=== PATIENT | male | born 1955 | race Caucasian/White ===

== ENCOUNTER 2023-10-24 09:04 | Outpatient (OUT) | payer OTHER, SELFPAY ==
[2023-10-24 09:32] LABS: Basophils Percent Auto 0.6 % (0.2-2.0); Eosinophils Absolute Auto 0.3 10^3/uL (0.0-0.7); Eosinophils Percent Auto 3.9 % (0.9-7.0); Hematocrit 42.7 % (42.0-54.0); Hemoglobin 13.7 g/dL (14.0-18.0); Immature Granulocytes Abs Auto 0.01 10^3/uL (0.00-0.03); Immature Granulocytes Pct Auto 0.2 % (0.0-0.5); Lymphocytes Absolute Auto 1.9 10^3/uL (1.2-3.8); Lymphocytes Percent Auto 29.8 % (20.5-60.0); Mean Corpuscular HGB Conc 32.1 g/dL (29.9-35.2); Mean Corpuscular Hemoglobin 27.8 pg (25.9-34.0); Mean Corpuscular Volume 86.8 fL (80.0-94.0); Mean Platelet Volume 9.9 fL (9.5-13.5); Monocytes Absolute Auto 0.6 10^3/uL (0.3-0.8); Monocytes Percent Auto 9.1 % (1.7-12.0); Neutrophils Absolute Auto 3.6 10^3/uL (1.4-6.5); Neutrophils Percent Auto 56.4 % (43.0-75.0); Platelet Count 321 10^3/uL (150-450); Red Blood Count 4.92 10^6/uL (4.70-6.10); Red Cell Distribution Width 14.5 % (11.0-15.0); White Blood Count 6.4 10^3/uL (4.0-11.0)
[2023-10-24 10:09] LABS: Alanine Aminotransferase 32 U/L (16-63); Albumin Globulin Ratio 1.1; Albumin Level 3.8 g/dL (3.4-5.0); Alkaline Phosphatase 57 U/L (46-116); Anion Gap 10.9; Aspartate Amino Transferase 13 U/L (15-37); BUN Creatinine Ratio 23.3; Bilirubin Total 0.3 mg/dL (0.2-1.0); Calcium 9.3 mg/dL (8.5-10.1); Carbon Dioxide 28.4 mmol/L (21.0-32.0); Chloride 105 mmol/L (98-107); Cholesterol 160 mg/dL (<=200); Estimated GFR (African America >60 (>=60); Estimated GFR (Non-African Ame >60 (>=60); Free T3 2.69 pg/mL (2.18-3.98); Globulin 3.5 g/dL; Glucose 115 mg/dL (74-106); HDL Cholesterol 54 mg/dL (40-60); LDL Cholesterol Calculated 90.8 mg/dL; Potassium 4.3 mmol/L (3.5-5.1); Sodium 140 mmol/L (136-145); Thyroid Stimulating Hormone 2.915 uIU/mL (0.358-3.740); Total Protein 7.3 g/dL (6.4-8.2); Triglycerides 76 mg/dL (<=150); VLDL CHOLESTEROL 15.2 mg/dL
[2023-10-24 10:13] LABS: Estimated Average Glucose 126 mg/dL
[2023-10-24 10:59] LABS: Prostate Specific Antigen Scrn 3.62 ng/mL (<=4.00)
== END 2023-10-24 09:05 | disposition home or self-care (01) ==
LOC: LAB 09:07
PROVIDERS: PCP Family Medicine; Visit Provider Family Medicine
DX: K21.9 Gastro-esophageal reflux disease without esophagitis (principal); I10 Essential (primary) hypertension; N40.0 Benign prostatic hyperplasia without lower urinary tract symptoms; E11.9 Type 2 diabetes mellitus without complications; E78.5 Hyperlipidemia, unspecified; Z12.5 Encounter for screening for malignant neoplasm of prostate
CPT/HCPCS: 36415; 80053; 80061; 83036; 84436; 84443; 84481; 85025; G0103

== ENCOUNTER 2024-08-17 08:13 | Emergency (ER) | payer OTHER, SELFPAY ==
[2024-08-17 08:21] VITALS: BP 182/90; PULSE 56; TEMP 36.7; O2SAT 100; BMI 28.1
--- NOTE | 2024-08-17 08:51 | CT_ITS ---
[address] [address] Patient Name: MONIQUE FENG MRN: [id number] date: 1955 Sex: M Assigned Patient Location: ER Current Patient Location: Accession/Order Number: [id number] Exam Date: 08/17/2024 09:04 Report Date: 08/17/2024 09:39 At the request of: EBONY SHELTON Procedure: CT abdomen pelvis wo con EXAMINATION: CT abdomen pelvis wo con HISTORY: left flank pain COMPARISON: 11/30/[address] TECHNIQUE: Axial, Coronal, and Sagittal images were created without IV contrast. Dose reduction techniques were achieved by using automated exposure control and/or adjustment of mA and/or kV according to patient size and/or use of iterative reconstruction technique. FINDINGS: LUNG BASES: No visible pulmonary or pleural disease. LIVER: No enlargement, atrophy, abnormal density, or significant focal lesion. BILIARY: 4.[address] evidence of acute cholecystitis PANCREAS: No lesion, fluid collection, ductal dilatation, or atrophy. SPLEEN: No enlargement or focal lesion. ADRENALS: No mass or enlargement. KIDNEYS: 4 mm nonobstructing right nephrolith. Asymmetric enlargement of the left kidney with minimal perinephric stranding. Mild left hydroureteronephrosis extending to a 5.4 mm proximal ureterolith axial image #72. Additional punctate left nephrolith BOWEL/MESENTERY: Moderate colonic diverticulosis without evidence of acute diverticulitis. Nonobstructive bowel gas pattern. Normal appendix. AORTA/VASCULAR: No aortic aneurysm. Moderate calcific atherosclerosis RETROPERITONEUM: No mass or adenopathy. LYMPH NODES: No adenopathy. URINARY BLADDER: No visible focal wall thickening, lesion, or calculus. PELVIC ORGANS: No visible mass. Pelvic organs appropriate for patient age. ABDOMINAL WALL: No mass or hernia. BONES: Moderate degenerative changes of the spine OTHER: Large bilateral hydroceles, right greater than left CT/CT abdomen pelvis wo con IMPRESSION: 5.4 mm proximal left ureterolith with mild associated left obstructive uropathy Cholelithiasis Bilateral scrotal hydroceles Electronically authenticated by: NICO GRESHAM Date: 08/17/2024 09:39
--- NOTE | 2024-08-17 08:52 | ED_ITS ---
HPI HPI - General Adult General Chief complaint: Back Pain/Injury Stated complaint: LEFT FLANK PAIN Time Seen by Provider: 08/17/24 08:22 Source: patient Mode of arrival: walk-in History of Present Illness HPI narrative: 69-year-old male to the emergency department chief complaint of left-sided flank pain. Patient reports 2 days ago he had some hematuria and some left-sided flank pain. He drank a lot of water and it went away. He reports that today he again had recurrence of left-sided flank pain as well as some pain to the left lower quadrant. No history of kidney stones however there is a significant f amily history. He denies any fever, sweats, chills. He reports nausea without vomiting. He is otherwise at his baseline health. Past medical history: Hypertension, diabetes mellitus type 2 Related Data Home Medications ?Medication ?Instructions ?Recorded ?Confirmed atenolol 25 mg tablet mg 08/17/24 metformin 500 mg tablet mg 08/17/24 omeprazole 20 mg capsule,delayed mg 08/17/24 release Previous Rx's ?Medication ?Instructions ?Recorded ondansetron 4 mg disintegrating 4 mg PO Q8H PRN nausea and 08/17/24 tablet vomiting 4 days #16 tabs oxycodone 5 mg tablet 5 mg PO Q6H PRN pain 3 days #12 08/17/24 tabs tamsulosin 0.4 mg capsule (Flomax) 0.4 mg PO DAILY #14 caps 08/17/24 Allergies Allergy/AdvReac Type Severity Reaction Status Date / Time No Known Drug Allergies Allergy Verified 08/17/24 08:27 Opioid HPI Opioid Management Most Recent Opioid Data: Last JAN Pain Assessment 08/17/24 08:57 Review of Systems ROS Status of ROS 10 or more systems reviewed and unremark able except as noted in history and below PFSH PFSH Social History Little interest or pleasure in doing things: not at all Feeling down, depressed, or hopeless: not at all Exam Narrative Exam Narrative: VITALS: I have reviewed the triage vital signs. GENERAL: Uncomfortable appearing adult male holding his left flank. NEURO: Alert and oriented. Moves all extremities. Face is symmetric and expressive. EYES: PERRL. No scleral icterus or conjunctival injection. No discharge. HENT: Normocephalic, atraumatic. Hearing is grossly intact. Nares grossly patent and without discharge. Mucous membranes moist. NECK: No JVD. Patient moves neck without restriction. CARDIO: Rhythm regular. Normal rate. No murmur, rub, or gallop. Pulses equal bilaterally in the upper and lower extremity. No lower extremity edema. PULM: Lungs clear to auscultation in all hernandes. No wheezes, rales, or rhonchi. No conversational dyspnea. No splinting, stridor, or accessory muscle use. GI/: Abdomen is soft. Mild left lower quadrant and left flank tenderness. EXTREMITIES: Symmetric muscle bulk. No joint swelling. No clubbing, cyanosis, or deformity. SKIN: Warm and dry. Normal turgor. No rash or lesions appreciated. PSYCH: Mood, affect, and interaction is appropriate to the setting. Constitutional Vital Signs, click to edit/add: Last Vital Signs Temp 98.0 F 08/17/24 08:21 Pulse 56 L 08/17/24 08:21 Resp 20 08/17/24 08:21 BP 182/90 H 08/17/24 08:21 Pulse Ox 100 08/17/24 08:21 O2 Del Method Room Air 08/17/24 08:21 Course Vital Signs Vital signs: Vital Signs Temperature 98.0 F 08/17/24 08:21 Pulse Rate 56 L 08/17/24 08:21 Respiratory Rate 20 08/17/24 08:21 Blood Pressure 182/90 H 08/17/24 08:21 Pulse Oximetry 100 08/17/24 08:21 Oxygen Delivery Method Room Air 08/17/24 08:21 Temperature 98.0 F 08/17/24 08:21 Pulse Rate 56 L 08/17/24 08:21 Respiratory Rate 20 08/17/24 08:21 Blood Pressure 182/90 H 08/17/24 08:21 Pulse Oximetry 100 08/17/24 08:21 Oxygen Delivery Method Room Air 08/17/24 08:21 Medical Decision Making MDM Narrative Medical decision making narrative: 69-year-old male to the emergency department chief complaint of left lower quadrant/left flank pain. Vital stable, the patient is afebrile. Clinical picture is that of kidney stone. Morphine, Toradol, Zofran ordered for symptom control. Will obtain a CT scan. Patient agrees with this plan. Pain was well-controlled with medications. He does have a 5.4 mm stone proximal left ureter. Mild MICHELLE. No evidence of infection in the urine. Case was discussed via telephone with Dr. Paez due to the patient's MICHELLE. He recommended outpatient management at this point, repeat renal function on Friday. Urine strainer and Flomax. I discussed with Dr. Bradford via telephone. I provided a prescription for repeat BMP on Friday. Dr. Bradford will follow-up with the patient to ensure he is doing well and follow-up on the renal function. Patient is instructed increase fluids at home. Plan was discussed with the patient and he agrees. Oxycodone for breakthrough pain. Zofran. Tylenol. He is given a prescription for Flomax. Urine strainer provided. Return precautions were discussed. All questions were answered. The patient was d ischarged home. Medical Records Medical records reviewed: Yes I reviewed the patient's medical records Lab Data Lab results reviewed: Yes I reviewed the patient's lab results Labs: Lab Results 08/17/24 08/17/24 Range/Units 08:29 08:38 WBC 8.3 (4.0-11.0) 10^3/uL RBC 5.04 (4.70-6.10) 10^6/uL Hgb 14.2 (14.0-18.0) g/dL Hct 43.8 (42.0-54.0) % MCV 86.9 (80.0-94.0) fL MCH 28.2 (25.9-34.0) pg MCHC 32.4 (29.9-35.2) g/dL RDW 14.4 (11.0-15.0) % Plt Count 324 (150-450) 10^3/uL MPV 10.0 (9.5-13.5) fL Neut % (Auto) 64.5 (43.0-75.0) % Lymph % (Auto) 23.8 (20.5-60.0) % [place] % (Auto) 7.9 (1.7-12.0) % Eos % (Auto) 2.9 (0.9-7.0) % Baso % (Auto) 0.5 (0.2-2.0) % Neut # (Auto) 5.3 (1.4-6.5) 10^3/uL Lymph # (Auto) 2.0 (1.2-3.8) 10^3/uL [place] # (Auto) 0.7 (0.3-0.8) 10^3/uL Eos # (Auto) 0.2 (0.0-0.7) 10^3/uL Baso # (Auto) 0.0 (0.0-0.1) 10^3/uL Abs Immat Gran (auto) 0.03 (0.00-0.03) 10^3/uL Imm/Tot Granulo (auto) 0.4 (0.0-0.5) % Sodium 141 (136-145) mmol/L Potassium 3.8 (3.5-5.1) mmol/L Chloride 106 (98-107) mmol/L Carbon Dioxide 27.3 (21.0-32.0) mmol/L Anion Gap 11.5 BUN 18.0 (7.0-18.0) mg/dL Creatinine 1.31 H (0.70-1.30) mg/dL Est GFR ( Amer) >60 (>=60 mL/min/1.73m^2) Est GFR (Non-Af Amer) 54 L (>=60 mL/min/1.73m^2) BUN/Creatinine Ratio 13.7 Glucose 164 H (74-106) mg/dL Calcium 8.9 (8.5-10.1) mg/dL Urine Color Dk yellow (YELLOW) Urine Clarity Clear (CLEAR) Urine pH 6.0 (5.0-9.0) Ur Specific [place] >=1.030 A (1.005-1.025) Urine Protein 30 A (NEG/TRACE) mg/dL Urine Glucose (UA) Negative (NEGATIVE) mg/dL Urine Ketones Trace A (NEGATIVE) mg/dL Urine Occult Blood Large A (NEGATIVE) Urine Nitrite Negative (NEGATIVE) Urine Bilirubin Negative (NEGATIVE) Urine Urobilinogen 0.2 (0.2-1.0) EU/dL Ur Leukocyte Esterase Trace A (NEGATIVE) Urine RBC 75-100 A (0-2) #/HPF Urine WBC 2-5 A (NONE SEEN) #/HPF Ur Squamous Epith Cells Rare (NONE/RARE) #/LPF Urine Crystals Seen A (None Seen) #/HPF Calcium Oxalate Crystal Rare Urine Bacteria Trace A (NONE SEEN) #/HPF Urine Casts Seen A (NONE SEEN) #/LPF Hyaline Casts Rare Urine Mucus Trace A (NONE SEEN) Imaging Data CT scan - abdomen: Attestation: I have reviewed the pertinent imaging results. Radiologist's impression: ITS Impressions Abdomen/Pelvis CT 08/17/24 08:51 IMPRESSION: 5.4 mm proximal left ureterolith with mild associated left obstructive uropathy Cholelithiasis Bilateral scrotal hydroceles Electronically authenticated by: NICO GRESHAM Date: 08/17/2024 09:39 Discharge Plan Discharge Chief Complaint: Back Pain/Injury Clinical Impression: Acute left flank pain, Kidney stone on left side Patient Disposition: Home, Self-Care Time of Disposition Decision: 10:31 Condition: Good Mode of Transportation: Private Vehicle Prescriptions / Home Meds: New tamsulosin [Flomax] 0.4 mg capsule 0.4 mg PO DAILY Qty: 14 0RF ondansetron 4 mg tablet,disintegrating 4 mg PO Q8H PRN (Reason: nausea and vomiting) 4 Days Qty: 16 0RF oxycodone 5 mg tablet 5 mg PO Q6H PRN (Reason: pain) 3 Days Qty: 12 0RF No Action metformin 500 mg tablet atenolol 25 mg tablet omeprazole 20 mg capsule,delayed release(/EC) Print Language: Albanian Instructions: Acute Kidney Injury (DC), Kidney Stones (ED), How to Strain Your Urine (ED) Additional Instructions: Call the office of your primary care doctor to arrange for follow-up within the above-stated timeframe. Your ED visit was focused on your acute issue and does not replace primary care. You should review your labs, imaging, and diagnoses from this ED visit with your primary care physician. There may be non-emergent/ incidental findings that need further evaluation. You should review your vital signs including blood pressure with your PCP. If you were prescribed medications you should discuss possible side-effects and drug interactions with your pharmacist. Call 911 or go to the nearest Emergency Department if you develop any new or worsening symptoms. Seek immediate medical attention if you develop: worsening abdominal pain, new or worsening nausea, new or worsening vomiting, new or worsening diarrhea, chest pain, shortness of breath, pain with urination, problems urinating, fever, chills, weakness, or any new or worsening symptoms. Strain your urine so that we know if you passed the stone. Call Dr. Paez's office for appointment. Take pain medications as prescribed. Repeat kidney function test on Friday. Return to the ED if your pain is uncontrolled or you are having new or worsening symptoms. Referrals: Forest Bradford MD [Primary Care Provider] - 1 week Miky Paez MD [Physician] - 1 week
--- OUTSIDE RECORDS SUMMARY | 2024-08-17 08:54 | XMS_ITS | CCD ---
Author Organization [facility] Care Team Providers Care Livestock Speculator Name Role Phone Jazmine Bradford Primary Care Physician [phone] MD Jazmine Bradford Primary Care Provider [phone] MD Christiano Mccain Attending Provider [phone] Jazmine Bradford Primary Care Unavailable Christiano Mccain Attending Unavailable Kalyn, Christiano Admitting Unavailable HOY, DR LUCERO Consulting Unavailable HOY, DR LUCERO Primary Care Unavailable HOY, DR LUCERO Admitting Unavailable HOY, DR LUCERO Attending Unavailable NADERER, DR SREEKANTH Patel Consulting Unavailable MARKER, DR GARSIA Consulting Unavailable SAMANTHA, KRISTIN Consulting Unavailable MARIKA, JESUS Consulting Unavailable MORENO, CELE Consulting Unavailable HOY, DR LUCERO Consulting Unavailable HOY, DR LUCERO Primary Care Unavailable HOY, DR LUCERO Admitting Unavailable HOY, DR LUCERO Attending Unavailable MCCAIN, DR MEDELLIN Admitting Unavailable MCCAIN, DR MEDELLIN Attending Unavailable MCCAIN, DR MEDELLIN Consulting Unavailable HOY, DR LUCERO Primary Care Unavailable WEST, DR NICO Felipe Consulting Unavailable MD Christiano MCCAIN Attending Unavailable MD Christiano MCCAIN Attending Unavailable MD Christiano MCCAIN Attending Unavailable MD Christiano MCCAIN Referring Unavailable MD Christiano MCCAIN Admitting Unavailable MD Christiano MCCAIN Attending Unavailable Medications Current Medications Medication Drug Class(es) Dates Sig (Normalized) Sig (Original) ascorbic acid 1000 mg oral tablet (3 sources) Vitamin C Start: 08-16-2020 take 1 g by mouth once daily Ascorbic Acid (Vitamin C) (Vitamin C) 1,000 mg Tablet Active 1 GM PO Daily August 15, 2020 11:00pm Start: 06-17-2019 take 500 mg by mouth once cathi y Vitamin C 500 mg, Oral, Daily, Refills(s) 0, Prophylaxis Start Date: 06/17/19 Status: Ordered aspirin 81 mg delayed release oral tablet (3 sources) Platelet Aggregation Inhibitor, Nonsteroidal Anti-inflammatory Drug Start: 08-16-2020 Aspirin (Mik Lo w Dose Aspirin) 81 mg Tablet,Delayed Release (Dr/Ec) Active 81 MG PO Daily August 15, 2020 11:00pm Start: 06-17-2019 take 1 tablet by harry th once daily aspirin 81 mg oral tablet 81 mg = 1 tab(s), Oral, Daily, Refills(s) 0, Prophylaxis Start Date: 06/17/19 Status: Ordered atenolol 25 mg oral tablet (3 sources) beta-Adrenergic Brandt Start: 06-17-2019 take 1 tablet by mouth once daily atenolol 25 mg Tab 25 mg = 1 tab(s), Oral, Daily, Refills(s) 0, High blood pressure Start Date: 06/17/19 Status: Ordered cefdinir 300 mg oral capsule (1 source) Cephalosporin Antibacterial Start: 12-13-2022 cefdinir 300 mg Cap Refills(s) 0 Start Date: 12/13/22 Status: Ordered metFORMIN hydrochloride 500 mg oral tablet (3 sources) Biguanide Start: 06-17-2019 take 1 tablet by mouth twice daily metformin 500 mg Tab 500 mg = 1 tab(s), Oral, BID, Refills(s) 0, High blood sugar Start Date: 06/17/19 Status: Ordered Multi Vitamins oral tablet (2 sources) Start: 06-17-2019 take 1 tablet by mouth once daily Multi Vitamins oral tablet 1 tab(s), Oral, Daily, Refill(s) 0, Prophylaxis Start Date: 06/17/19 Status: Ordered omeprazole 20 mg delayed release oral capsule (3 sources) Proton Pump Inhibitor Start: 08-16-2020 take 20 mg by mouth once daily at bedtime Omeprazole Active 20 MG PO Daily at bedtime August 15, 2020 11:00pm Start: 06-17-2019 take 20 mg by mouth once daily omeprazole 20 mg, Oral, Daily, Refills(s) 0, Control of stomach acid Start Date: 06/17/19 Status: Ordered Problems Active Problems Problem Classification Problem Date Documented Da te Episodic/Chronic Abdominal hernia (4 sources) Incisional hernia; Translations: [Umbilical hernia] 06-17-2019 Episodic Complications of surgical procedures or medical care (2 sources) Infection following a procedure, unspecified, initial encounter; Translations: [Sepsis following a procedure, initial encounter] Onset: 12-05-2022 Episodic Diabetes mellitus without complication (3 sources) Type 2 diabetes mellitus; Translations: [Type 2 diabetes mellitus without complications] Onset: 12-05-2022 06-17-2019 Chronic Disorders of lipid metabolism (4 sources) Hyperlipidemia, unspecified; Translations: [HYPERLIPIDEMIA UNSPECIFIED] Onset: 07-30-2022 Chronic Essential hypertension (3 sources) Hypertensive disorder; Translations: [Essential (primary) hypertension] Onset: 07-31-2022 06-17-2019 Chronic Hyperplasia of prostate (4 sources) Benign prostatic hypertrophy without outflow obstruction; Translations: [Benign prostatic hyperplasia without lower urinary tract symptoms] Onset: 12-13-2022 Chronic Inflammatory conditions of male genital organs (1 source) Acute prostatitis; Translations: [ACUTE PROSTATITIS] Onset: 12-05-2022 Episodic Other aftercare (1 source) watermelon inspector (current) use of aspirin; Translations: [LIBRARY MONITOR CURRENT USE OF ASPIRIN] Onset: 12-05-2022 Episodic Other aftercare (1 source) watermelon inspector (current) use of oral hypoglycemic drugs; Translations: [LIBRARY MONITOR USE ORAL HYPOGLYCEMIC DX] Onset: 12-05-2022 Episodic Other aftercare (1 source) 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 therapy; Translations: [OTH LIBRARY MONITOR CURRENT DRUG THERAPY] Onset: 12-05-2022 Episodic Other lower respiratory disease (1 source) Acute respiratory distress; Translations: [ACUTE RESPIRATORY DISTRESS] Onset: 12-05-2022 Episodic Other male genital disorders (2 sources) Hydrocele of testis; Translations: [Hydrocele, unspecified] Onset: 09-06-2022 Episodic Other male genital disorders (2 sources) Disorder of male genital organ 09-06-2022 Episodic Other male genital disorders (4 sources) Hydrocele, unspecified; Translations: [HYDROCELE UNSPECIFIED] Onset: 09-09-2022 Episodic Other screening for suspected conditions (not mental disorders or infectious disease) (6 sources) Raised prostate specific antigen; Translations: [Elevated prostate specific antigen [PSA]] Onset: 07-31-2022 Episodic Residual codes; unclassified (2 sources) Increased body mass index 09-06-2019 Episodic Septicemia (except in labor) (3 sources) Sepsis, unspecified organism; Translations: [Severe sepsis without septic shock] Onset: 11-28-2022 Episodic Unclassified (2 sources) Screening status 06-17-2019 Past or Other Problems Problem Classification Problem Date Documented Da te Episodic/Chronic Diabetes mellitus without complication (1 source) Other abnormal glucose; Translations: [OTHER ABNORMAL GLUCOSE] Onset: 07-31-2022 Episodic Results Test Name Value Interpretation Reference Range Facility ED Note-Physicianon 12-16-19 ED Note-Physician [id number] .00CD:127 Normal [facility] Lab Reportson 12-16-2022 Lab Reports [id number] .00CD:127 Normal [facility] RAD - CT Reporton 12-16-2022 RAD - CT Report [id number] .00CD:127 Normal [facility] Ambulatory Visit Summaryon 0 12-13-2022 Ambulatory Visit Summary PING KENNEY MONIQUE Andrew :1955 Visit Date:12/13/2022 Ambulatory Visit Instructions Your Diagnosis Elevated PSA BPH without urinary obstruction Prostate nodule Hydrocele Your Care Team Attending Physician - Christiano MCCAIN MD Primary Care Physician - Jazmine Bradford MD This Is Your Medications List Contact prescribing physician if questions or concerns ascorbic acid (Vitamin C) aspirin (aspirin 81 mg oral tablet) atenolol (atenolol 25 mg Tab) cefdinir (cefdinir 300 mg Cap) metformin (metformin 500 mg Tab) multivitamin (Multi Vitamins oral tablet) omeprazole Procedures Performed Transrectal biopsy of prostate using ultrasound (US) guidance (11/26/2022), Hernia repair (09/28/2019), Colonoscopy (06/25/2019), Arthroscopy of knee right, Open repair of inguinal hernia, Repair of umbilical hernia. Discharge Vitals Heart Rate (Peripheral) 80 Respiratory Rate 16 Blood Pressure 128/74 Height 179 cm Height 70 in Weight 86 kg Weight 189.2 lb BMI 26.84 What to do next You Need to Schedule the Following Appointments Follow Up with KALYN CHAKRABORTY, MACEY Nash When: Where: [address] [place] [id number]- Medications What How Much When Instructions Unchanged ascorbic acid (Vitamin C) 500 Milligram By Mouth Every day Contact prescribing physician if questions or concerns Unchanged aspirin (aspirin 81 mg oral tablet) 1 Tablets By Mouth Every day Contact prescribing physician if questions or concerns Unchanged atenolol (atenolol 25 mg Tab) 1 Tablets By Mouth Every day Contact prescribing physician if questions or concerns Unchanged cefdinir (cefdinir 300 mg Cap) Contact prescribing physician if questions or concerns Unchanged metformin (metformin 500 mg Tab) 1 Tablets By Mouth 2 times a day Contact prescribing physician if questions or concerns Unchanged multivitamin (Multi Vitamins oral tablet) 1 Tablets By Mouth Every day Contact prescribing physician if questions or concerns Unchanged omeprazole 20 Milligram By Mouth Every day Contact prescribing physician if questions or concerns Allergies No Known Allergies Problems Ongoing - Any problem that you are currently receiving treatment for. BMI 29.0-29.9,adult BPH without urinary obstruction Colon cancer screening Diabetes mellitus, type 2 Elevated PSA HTN (hypertension) Hydrocele Incisional hernia Prostate nodule Umbilical hernia Education Materials Prostate Cancer Screening The prostate is a walnut-sized gland that is located below the bladder and in front of the rectum in males. The function of the prostate (prostate gland) is to add fluid to semen during ejaculation. Prostate cancer is the second most common type of cancer in men. A screening test for cancer is a test that is done before cancer symptoms start. Screening can help to identify cancer at an early stage, when the cancer can be treated more easily. The recommended prostate cancer screening test is a blood test called the prostate-specific antigen (PSA) test. PSA is a protein that is made in the prostate. As you age, your prostate naturally produces more PSA. Abnormally high PSA levels may be caused by: ? Prostate cancer. ? An enlarged prostate that is not caused by cancer (benign prostatic hyperplasia, BPH). This condition is very common in older men. ? A prostate gland infection (prostatitis). ? Medicines to assist with hair growth, such as finasteride. Depending on the PSA results, you may need more tests, such as: ? A physical exam to check the size of your prostate gland. ? Blood and imaging tests. ? A procedure to remove tissue samples from your prostate gland for testing (biopsy). Who should have screening? Screening recommendations vary based on age. ? If you are younger than age 40, screening is not recommended. ? If you are age 40?54 and you have no risk factors, screening is not recommended. ? If you are younger than age 55, ask your health care provider if you need screening if you have one of these risk factors: ? Being of -[place] descent. ? Having a family history of prostate cancer. ? If you are age 55?69, talk with your health care provider about your need for screening and how often screening should be done. ? If you are older than age 70, screening is not recommended. This is because the risks that screening can cause are greater than the benefits that it may provide (risks outweigh the benefits). If you are at high risk for prostate cancer, your health care provider may recommend that you have screenings more often or start screening at a younger age. You may be at high risk if you: ? Are older than age 55. ? Are -E[place]. ? Have a father, brother, or uncle who has been diagnosed with prostate cancer. The risk may be higher if your family member's cancer occurred at an early age. What are th (more content not included)... Normal [facility] Patient Educationon 12-13-19 Patient Education Oncology Prostate Cancer Screening The prostate is a walnut-sized gland that is located below the bladder and in front of the rectum in males. The function of the prostate (prostate gland) is to add fluid to semen during ejaculation. Prostate cancer is the second most common type of cancer in men. A screening test for cancer is a test that is done before cancer symptoms start. Screening can help to identify cancer at an early stage, when the cancer can be treated more easily. The recommended prostate cancer screening test is a blood test called the prostate-specific antigen (PSA) test. PSA is a protein that is made in the prostate. As you age, your prostate naturally produces more PSA. Abnormally high PSA levels may be caused by: ? Prostate cancer. ? An enlarged prostate that is not caused by cancer (benign prostatic hyperplasia, BPH). This condition is very common in older men. ? A prostate gland infection (prostatitis). ? Medicines to assist with hair growth, such as finasteride. Depending on the PSA results, you may need more tests, such as: ? A physical exam to check the size of your prostate gland. ? Blood and imaging tests. ? A procedure to remove tissue samples from your prostate gland for testing (biopsy). Who should have screening? Screening recommendations vary based on age. ? If you are younger than age 40, screening is not recommended. ? If you are age 40?54 and you have no risk factors, screening is not recommended. ? If you are younger than age 55, ask your health care provider if you need screening if you have one of these risk factors: ? Being of -[place] descent. ? Having a family history of prostate cancer. ? If you are age 55?69, talk with your health care provider about your need for screening and how often screening should be done. ? If you are older than age 70, screening is not recommended. This is because the risks that screening can cause are greater than the benefits that it may provide (risks outweigh the benefits). If you are at high risk for prostate cancer, your health care provider may recommend that you have screenings more often or start screening at a younger age. You may be at high risk if you: ? Are older than age 55. ? Are -[place]. ? Have a father, brother, or uncle who has been diagnosed with prostate cancer. The risk may be higher if your family member's cancer occurred at an early age. What are the benefits of screening? There is a small chance that screening may lower your risk of dying from prostate cancer. The chance is small because prostate cancer is typically a slow-growing cancer, and most men with prostate cancer from a different cause. What are the risks of screening? The main risk of prostate cancer screening is diagnosing and treating prostate cancer that would never have caused any symptoms or problems (overdiagnosis and overtreatment). PSA screening cannot tell you if your PSA is high due to cancer or a different cause. A prostate biopsy is the only procedure to diagnose prostate cancer. Even the results of a biopsy may not tell you if your cancer needs to be treated. Slow-growing prostate cancer may not need any treatment other than monitoring, so diagnosing and treating it may cause unnecessary stress or other side effects. A prostate biopsy may also cause: ? Infection or fever. ? A false negative. This is a result that shows that you do not have prostate cancer when you actually do have prostate cancer. Questions to ask your health care provider ? When should I start prostate cancer screening? ? What is my risk for prostate cancer? ? How often do I need screening? ? What type of screening tests do I need? ? How do I get my test results? ? What do my results mean? ? Do I need treatment? Contact a health care provider if: ? You have difficulty urinating. ? You have pain when you urinate or ejaculate. ? You have blood in your urine or semen. ? You have pain in your back or in the area of your prostate. ? You have trouble getting or maintaining an erection (erectile dysfunction, ED). Summary ? Prostate cancer is a common type of cancer in men. The prostate (prostate gland) is located below the bladder and in front of the rectum. This gland adds fluid to semen during ejaculation. ? Prostate cancer screening may identify cancer at an early stage, when the cancer can be treated more easily. ? The prostate-specific antigen (PSA) test is the recommended screening test for prostate cancer. ? Discuss the risks and benefits of prostate cancer screening with your health care provider. If you are age 70 or older, screening is likely to lead to more risks than benefits (risks outweigh the benefits). This information is not intended to replace advice given to you by your health care provider. Make sure you discuss any questions you have with your health care provider. Document Released: 08/07/2018 Document R (more content not included)... Normal [facility] Urology Office/Clinic Noteon 12-13-2022 Urology Office/Clinic Note Chief Complaint Review Prostate Path Report HPI Staff S/P TRUS /Bx done 11/26/22. Pathology report is available to review. MRI done 10/01/22. Scrotal US done 09/09/22 Pt states he went to [facility] the day following TRUS/Bx due to increased fever and chills. Admitted due to Sepsis. Still taking abx, has 1 wk left. Denies any complaints voiding at this time. History of Present Illness Tests reviewed: reviewed path report and CT scan ordered by primary care. I have reviewed the previous health record information and history for this patient from Dr. Mccain. I have reviewed and verified the staff HPI to be accurate for this encounter. There have been no associated fever, chills, flank pain, or blood in the urine. Denies any urinary infections since last encounter. Review of Systems PHQ Score Initial Depression Screen Score: 0 ROS - Provider Constitutional: denies weight loss, denies hot flashes. Eyes: denies eye problems. Gastrointestinal: denies nausea, denies vomiting. Cardiovascular: denies chest pain or angina. Integumentary: no dryness Musculoskeletal: denies musculoskeletal symptoms. ENMT: denies otolaryngeal symptoms. Respiratory: no shortness of breath. Heme/Lymph: denies easy bleeding tendency, denies easy bruising tendency. Psychiatric: no confusion, no anxiety. Genitourinary: denies dysuria, denies hematuria, denies discharge, denies urinary frequency, denies urinary hesitancy, denies nocturia, denies incontinence, denies genital sores, denies decreased libido, and denies erectile dysfunction. Physical Exam Vitals & Measurements HR: 80(Peripheral) RR: 16 BP: 128/74 HT: 70 in HT: 179 cm WT: 86 kg WT: 189.2 lb BMI: 26.84 General Appearance: alert, no distress, well nourished, well developed male. Genitourinary: normal scrotum, normal testes, normal urethra, normal epididymis, normal vas deferens/spermatic cord. Flank Pain: none. Bladder: nonpalpable. Assessment/Plan 1. Elevated PSA (R97.20: Elevated prostate specific antigen [PSA]) Reports he has his PSA & JULIA checked annually and levels have always been within normal limits. Denies family hx of prostate cancer. PSA 07/30/22 - 3.6 & 11.9%, simple PSA 4.76 10/08/21 - 3.61 08/03/20 - 3.15 MRI of prostate done 09/20/22 shows no evidence of lymphadenopathy. Prostate volume 31 mL. MRI was negative for malignancy, BPH changes. S/p TRUS/bx done 11/26/22. Path report negative for prostate cancer. The pathology report was reviewed with the patient in detail today. There is no evidence of malignancy and no further evaluation of the tissue removed is planned. All questions were answered and the report discussed in terms that the patient could understand. Pt presented to [facility] ER on 11/27/22 due to fever. Pt was admitted for 4 days due to sepsis. Pt shares he is almost done with abx, started on Cefdinir. Reports he is doing much better now. Pt states his product management consultant prescribed Doxycycline and he starts it once he is done with Cefdinir. Recommended pt to take it as it aides with prostate infection. Prefers to follow up PRN. Sees primary care twice a year. All questions/concerns were discussed. Pt. to call the office if heencounters any issues prior. Pt. acknowledges understanding. 2. BPH without urinary obstruction (N40.0: Benign prostatic hyperplasia without lower urinary tract symptoms) Denies any urinary complaints, feels he is emptying well. No symptoms of prostatitis. Encouraged pt to monitor urinary habits and symptoms. Pt states he is not taking any prostate or bladder medications. States he was going to discuss starting medication with primary care. Pt. states he drinks coffee and that increases his urination. Mentions that he has decreased his coffee intake. Does not wish to try a medication to shrink his prostate. 3. Prostate nodule (N40.2: Nodular prostate without lower urinary tract symptoms) Rt. sided nodularity found, base to apex on previous exam. Biopsy was neg for prostate cancer. 4. Hydrocele (N43.3: Hydrocele, unspecified) CT scan done 11/30/22 (ordered by Dr. Bradford) showed persistent moderate right sided hydrocele, partially visualized, similar to that seen on scrotal US done 09/09/22. Shares his hydrocele has been like this for years and it is not bothersome. Hasn't had pain since he initially noticed his testicle was enlarged. -No treatment indicated at this time Follow-up With When Contact Information KALYN CHAKRABORTY, Christiano Thornton, URL [address] [id number]- Additional Instructions: PRN Patient Education Prostate Cancer Screening Malika Romero, personally scribed for Dr. Mccain on 12/13/2022 11:53:39. . Documentation recorded by the scribeMalika, accurately reflects the services(s) I performed and decisions made by me. Authenticated by Dr. Mccain on 12/13/2022 11:57:12. Problem List/Past Medical History Ongo (more content not included)... Normal [facility] Comment on above: Result Comment: Elec tronically Signed By: Christiano MCCAIN MD\.br\Date and Time Signed: 12/13/22 11:57 EST\.br\Electronically Co-Signed By: Malika Laird.br\Date and Time Co-Signed: 12/13/22 11:55 EST [facility] Documentson 0 12-06-2022 [employer] Documents [id number] 1.00CD:127 [facility] Coding Summary.on 12-03-2022 Coding Summary. CD:[id number] G h0bWw+PGhlYWQ+SN5AYSD xS88nsWPgtS0AU6vOLM3Q XPDVDVWSKA7LRI2qlGY9G NjtU7EncqUm BpinzAQxGD02ATx3IFY2e MwmQHzsgD4kgOVgR8s8Uc UeOX51wA26GVftDXBzYxQ 3LjZpbjsgbWFy P2taXlMamRZhEwv+PHRhY mxlIHdpZHRoPScxMDAlJy LstBcnYB4sIx3mRNPqPDY vbGxhcHNlOiBj l1qzQIWvUKvkGY8poVnrY 1FaqZD5ANSnm0g5Bs91vO I+CCRjOGB3jGaaNKsdc97 9NoPix4ryQQB6 cDLpQPpkTIH2J14hw4B1S JKjPSLoIHU4sMW1qS6ieN stjyyeL1TxbZQwSyT0NUL 7jJXerO2oqOkv yajtgY6dNct+J64PTZ7MR OEQZR0GVfk4N5GqYfvbeJ I+YH42ZNRjWH15jGGggSI bc8jgdZm2FmBj RXPfPPH9yBqpRCwtv1XcB RQeB63gnWOsg3D6OJVwgO nehUIzPeWtcNL1dU2uALd exxake7wqdaze Lirmm8tupg03zS59W51pJ YisCNFrECE3OICgLOTuzU baoy5nnF8wYr3+ODiwn6f dy5vtbLu3MeIz LNNczvYihAmkGCY5a5GmD m20M0HtvMrrh7CsEhv3td 55tRFmu4S8xEW0WCwvAMM dnW5aNUikVvW2 RIZoLwLkzQ11yYJcGNpbC n2xhVtqaXfbOI3dJBOxxe esMRAesD7nSOEbjFXqdPz jID9hACPvrtnk u928BmEyWUS8ZULfiKDdH 6CwpN9iOlSdAAIvEWPaA8 JkaZIdPLqkA381VZroXiG 0DYDlgpFgX6Uc SZIsiFqdWmF6t1B2La5Bj 7XkzjehZGQ0VOstSIXwKy D1LeZeNsI6Z0MlKkd8NZY nnZeyBS3oG8Jp PSKtzgihgomqhIN1AHStO ILtfG24fMEjDWowJl6me1 L1y535NHYqSIRvlD29Xh7 udDogMTBwdCBU mS4ipvyak0saohscDeWdI XYaTCc9IHi0BVHoeIkwEz LgCEO8NfY9CKX1uXItlV9 rnPfjasyqfR0a Oyc+Y38scH4yINA2MKG2k yxcTUQmmjFmSU84OW51I9 RyPjwvdGFibGU+PGRpdiB shKvnQM3oQcHg h0thc3ShQDduD8OyXPXqA JotFeh8CVWmQML2cMD6iH 1qVPPdQIhae1M9cQY7X5Q xhlWmka2oi2ej BGJePNisN11iuOUdc1Z9Z VZupEX2FIBjzZsrZkCgjI 93Oyc+NWUnpDtez1CmRzv ik5ljw8zgoIp4 SnYiPGFmdrZhuXpfICD3s 9JmJr45B22oBHwwEVHzZW WgJQYcBOYdqRpsun0qgW3 wIi8+PGNvbCB3 gBQ7yZ2hVDQpGwQ8MMohD 493OzPfqULzIuand5eno3 megSw8GdHiRCOnbqPpePw nULN4u7CmYn43 V59mWDbiGIUbCMQdTWStV FTgdTztwz1gnU1vBs6+PC 6vq9hodq35nU88aZT+PHR nIOK2eIuaVRst QFSbaJ0dQUnoYfA1TEMpO xCteQ22qKLzULnpJw0hlH ilkNexMK9iZJFaeilaw54 7ToUev5cnDRVf lAXbHHxvSTN6L04mq3K7G OKjUATuBQQ3sKL2vJ9nuN lnbjogbGVmdDsgdmVydGl oMSawPLjrL385 IHRvcDsnPlBhdGllbnQgT pIuXOa7B1DkRtl1YYWqxV tdVQ2lyGMjWJiyLz9mvBw iwSriRZ5nBSVg sawvo338GpYkp0chDYTev GEkTQbeDDT1J94gm7D4ET XvEHNwBPJ8bBG1iB4bbVq nbjogbGVmdDsg fgVvaWsxPBwnNHmrG738X HRvcDsnPkJpcnRoIERhdG T5KY45EC42qMKxt5R5oAD 8P7OeXBUdeaqb nmtvnIP7VWHwHPZjiE98D l2vuVdpYp7tVZHrVIP2YP HrtBWmH0VwkM1lNmBxXMM qVAEyJ5LzbJOs CQfxD989PHtqSfJ0EYVhg vWoS0YxFSWepMlmReO4g1 C5Eg8EA8Y6IG96CH83eFS nz9D4dLH4Z9Rx RTTdfzjivoazlDD7BZDzO QBkwW29Lw2kzJpiQj4eOK GlJXU4PTAprYHbX9QtrO7 yOiAjMDAwMDAw N9OalNIrMIldB901BUnvG aU3TCXdftIvP9WhLLIxvU vfBlC2e8Y0Tn0BBHw1JD9 8LL94qYRwi6D3 xVE4R3OgDNHvhwamtptxm YT9DQBeHMVrcX21Wc5bdM xjDb8sLXTeREE1WTXfkTG bV7QuhW7qVsNn LWTcQQHiZ8DvqSYtVBtmB 891HGxsMiM0MXPpisRtZ8 ScRAWjuUrzMqD4w9T3Lx9 SSHDoSI74GGS9 pUJ9EC99PC77A1GiCtadg GFibGU+PHRhYmxlIHdpZH RoPScxMDAlJyBzdHlsZT0 hJa1cCWDwNCCu kGjogHJdVrFom9qeTEUqN TbcWL9cpRwnY8RaaKS2WV Vep2m4Pe23E32dN6MmhET +PLIjmOZ3gZQ7 hC0eLrAkFdJ4LIqhT019B aTnsHLfWhgox7ace0uthM x1ZkM2SQJhuzQduGzqXYB 6d1GwKa91H97a IHdpZHRoPSIxNSUiIHZhb Pniaf8toL3nFu0+PGNvbC M9aUF0xP9kTwOlMnL3MZh cQ319SyCgrZNa Klewz7vuj5viiTx5IsGqJ FLnmkAxhWusXUQ1t9AfUw 33V6HtrVrmf0XjJdn1pj4 7rPIjr9T0sEP0 B4KzUHIlcltbwYKedCkxR F2rBVWatmouZJKzjS5nYG CaL7m7VtKjJiZ7TMovB2N ssqG5EMUkdLMu OIoaATI4H00aw2A6JPWmN CWtBUD9lYP2cK2nqFzaxf ogbGVmdDsgdmVydGljYWw dQKbiJ631ILBq wRhxOKTvbI4eIHPkdWIek CsnHV9nZUGjudoqIe0USY IgSlIsIFBISUxMSVAgTDw vdGQ+PHRkIHN0 rJjiSLuwXUBvdX3kNTJcW 4q8WnDnWsO1PThaQ5HkCQ JrvttaGx93hQ9sMrMoLtC 7INhaA6VoluR1 DDIjmAFbWWptBHR7E38fv 1O8BNNjVBNbIGS5zXH8oP 1hbGlnbjogbGVmdDsgdmV ydGljYWwtYWxp F560BKNkcMbpUvV2EbB7P kP4UXR7K3FrSfq2NLMrzD lnQD9ioHMoIKkrOe4yoZq nmGptAC9dDQRk saodQZDjfK3cVNXnnOCyp CzoBT5nBPTcbukcj468Jz QbJYA5KWWzdSWrH4AykZ6 yOiAjMDAwMDAw A8LdlHZrMTpxG015JLqwJ eE6ISBzkaOfX3YjQJFjcG rfSlS1l8B0Vh81YdXETOG yczwvdGQ+PHRk JPO3kEmiAIfhYUZrsF5uL PHtK7j0MiDzRzU9QUaeR0 DjYLFetbefAx40sU9oWyN jVwX9VZlwF7Ln irM0OMKxaZNlYDxySPC2E 93iz0Q2YZEnUIWyVBN1nZ A2bW6tpMzqqlflmSInxHd gdmVydGljYWwt LAywY810ZBIepGryFu9rl GI5Q0LuMma3YVBkeXovZB 3gaQFgPBfeOl6grNljhRh iNH3nMFMczctp JYEowW7tJDBcjLBnlGsoZ C0jNHHqccqfn001LfPgAL K9JCTloSCkE1YaoX8hVjS iWGEqBSAfL7Dt nTVuNSgvJ008OOcoKoG6W LBfioYcJ2YtGUSypYrhIt J0d9B2Dx6AnOSxUCSyOC7 3OU13KO02X0El PjwvdGFibGU+PHRhYmxlI HdpZHRoPScxMDAlJyBzdH itEW6rMi5xRSQrODTzyTi neOCtTaWtb3up PLZkZFrtRU1ykPlfC6Fgl LT9ULDbc7w8Oy15Z07yJ9 JvdXA+VWAhtAC5yUS4gD0 cOvPlLjM9VUjb K312ExTyvCUnElgyj3tji 5sawUv5EkLfTMKoduIasG yjTKE0b9UqVh06S82eNOw pZHRoPSIyMCUi DWHwuUijqt6ltI8qAw7+P MLugXF4bIA4hB4hEeRoTn Y3CTrwW488IkYosZYtKyo yL20jC6AqfHY+ SOPvTqw6UDYoeAdnQF8gd MKcLHneHu0yEEM5RfTrIm HpRZsmH7GzFEMktjwkzcl ojLO9SPPkMNIp zQ56Bx8kxUeiVy7nEPAbR MH5IANnbYYqU8UowM1uWf VxTMJsAXQgC1GjwZRlMBz oA919SWpsVnQ1 REBwlfUoB0FcZQThwYanN uE1b5P0Bv9IeHtzdGHwOU 1aFaBeQPw2H1GvZon3PCX xoRlyXT3xtPJg TNnmCs4izRyxgVyxCE4xP ITqzqmtc695JzJtw7rxYK JzlJDiDSskJHB8C55pb0S 9UNNlIWJpPOO3 gAX1oD5iqPpshkyumZDbp DsgdmVydGljYWwtYWxpZ2 35VNCqaEyfLyENWdx7R6J sQud4FSQulBef NX3rrIPfXBjuWi2szUjig FyzEP9vJHTfcpetr557Iy Rbz9xfHQWouCQiXIkhBCA 2Q02sy2V9SKHs VFYdSZI3eRM0eT0ucNhad jogbGVmdDsgdmVydGljYW rcTSwkQ065NVAzgGfaFx5 NZho5N7HyLin2 FXNuxXwwHM4lbABwQVfeC d6aeYrnbSevGC5oJYGlnp mfn285NtPkv3uhBWCdbZO tDDnuWTI8D32k q0O2QBJrPDTdCGG4pFB6c J6kaVyqfkugcURfgLwjoi GumCtcEDvsNMneK666COS vcDsnPlBheWVy OjwvdGQ+VK69td00Q0WdR pjzVus3LCXwRFI6tBA3oI 9zRPTgKDwvk8B3uHI7C8D oxeMvdl8qc7de YXBz (more content not included)... Normal [facility] Prostate Histology ([facility]) on 12-02-2022 Prostate Histology Diagnosis Info Invalid Interpretation Code [facility] Comment on above: Result Comment: A:Pr ostate,Left Lateral Base:Needle Biopsy Interpretation - - Benign prostatic tissue. MicroScopic Description - B:Prostate,Left Lateral Mid:Needle Biopsy Interpretation - - Benign prostatic tissue. MicroScopic Description - C:Prostate,Left Lateral [place]:Needle Biopsy Interpretation - - Benign prostatic tissue. MicroScopic Description - D:Prostate,Left Base:Needle Biopsy Interpretation - - Benign prostatic tissue. MicroScopic Description - E:Prostate,Left Mid:Needle Biopsy Interpretation - - Benign prostatic tissue. MicroScopic Description - F:Prostate,Left [place]:Needle Biopsy Interpretation - - Benign prostatic tissue. MicroScopic Description - G:Prostate,Right Base:Needle Biopsy Interpretation - - Benign prostatic tissue. MicroScopic Description - H:Prostate,Right Mid:Needle Biopsy Interpretation - - Benign prostatic tissue. MicroScopic Description - I:Prostate,Right [place]:Needle Biopsy Interpretation - - Benign prostatic tissue. MicroScopic Description - J:Prostate,Right Lateral Base:Needle Biopsy Interpretation - - Benign prostatic tissue. MicroScopic Description - K:Prostate,Right Lateral Mid:Needle Biopsy Interpretation - - Benign prostatic tissue. MicroScopic Description - L:Prostate,Right Lateral [place]:Needle Biopsy Interpretation - - Benign prostatic tissue. MicroScopic Description - Gross Description Site ID:A color og-white fixative Formalin cores 1 units cm Site ID:B color og-white fixative Formalin cores 2 units cm Site ID:C color og-white fixative Formalin cores 3 units cm Site ID:D color og-white fixative Formalin cores 3 units cm Site ID:E color og-white fixative Formalin cores 1 units cm Site ID:F color og-white fixative Formalin cores 1 units cm Site ID:G color og-white fixative Formalin cores 1 units cm Site ID:H color og-white fixative Formalin cores 1 units cm Site ID:I color og-white fixative Formalin cores 2 units cm Site ID:J color og-white fixative Formalin cores 1 units cm Site ID:K color og-white fixative Formalin cores 1 units cm Site ID:L color og-white fixative Formalin cores 2 units cm 0.7 ---> stringy Electronically signed by : on: 12/02/2022 13:28:16 Performed By: #### 1 [id number] ####[facility] [email or web address] [place] [address] CBC AUTO DIFFon 12-01-2022 BASO # 0.0 103/ul Normal 0.0-0.1 [facility] Comment on above: Performed By: #### C MP #### [facility] [address] [place] [address] Dr. Kaela Krause Basophils/100 WBC (Bld) 0.5 % Normal 0.2-2.0 [facility] Comment on above: Performed By: #### C MP #### [facility] [address] [place] [address] Dr. Kaela Krause EO # 0.1 103/ul Normal 0.0-0.7 [facility] Comment on above: Performed By: #### C MP #### [facility] [address] [place] [address] Dr. Kaela Krause Eosinophils/100 WBC (Bld) 3.3 % Normal 0.9-7.0 [facility] Comment on above: Performed By: #### C MP #### [facility] [address] [place] [address] Dr. Kaela Krause Erythrocyte distribution width (RBC) [Ratio] 14.3 % Normal 11.0-15.0 [facility] Comment on above: Performed By: #### C MP #### [facility] [address] [place] [address] Dr. Kaela Krause Hematocrit (Bld) [Volume fraction] 33.7 % Critically low 42.0-54.0 [facility] Comment on above: Performed By: #### C MP #### [facility] [address] [place] [address] Dr. Kaela Krause Hemoglobin (Bld) [Mass/Vol] 11.9 g/dL Critically low 14.0-18.0 [facility] Comment on above: Performed By: #### C MP #### [facility] [address] [place] [address] Dr. Kaela Krause IG # 0.02 10e3/ul Normal 0.00-0.03 [facility] Comment on above: Performed By: #### C MP #### [facility] [address] [place] [address] Dr. Kaela Krause IG % 0.5 % Normal 0.0-0.5 [facility] Comment on above: Performed By: #### C MP #### [facility] [address] [place] [address] Dr. Kaela Krause LYMPH # 1.1 103/ul Critically low 1.2-3.8 [facility] Comment on above: Performed By: #### C MP #### [facility] [address] [place] [address] Dr. Kaela Krause Lymphocytes/100 WBC (Bld) 27.8 % Normal 20.5-60.0 [facility] Comment on above: Performed By: #### C MP #### [facility] [address] [place] [address] Dr. Kaela Krause MANUAL DIFF REQ NO Normal [facility] Comment on above: Performed By: #### C MP #### [facility] [address] [place] [address] Dr. Kaela Krause MCH (RBC) [Entitic mass] 27.4 pg Normal 25.9-34.0 [facility] Comment on above: Performed By: #### C MP #### [facility] [address] [place] [address] Dr. Kaela Krause MCHC (RBC) [Mass/Vol] 35.3 g/dL Critically high 29.9-35.2 [facility] Comment on above: Performed By: #### C MP #### [facility] [address] [place] [address] Dr. Kaela Krause MCV (RBC) [Entitic vol] 77.5 fL Critically low 80.0-94.0 [facility] Comment on above: Performed By: #### C MP #### [facility] [address] [place] [address] Dr. Kaela Krause MONO # 0.5 103/ul Normal 0.3-0.8 [facility] Comment on above: Performed By: #### C MP #### [facility] [address] [place] [address] Dr. Kaela Krause Monocytes/100 WBC (Bld) 13.5 % Critically high 1.7-12.0 [facility] Comment on above: Performed By: #### C MP #### [facility] [address] [place] [address] Dr. Kaela Krause NEUT # 2.1 103/ul Normal 1.4-6.5 [facility] Comment on above: Performed By: #### C MP #### [facility] [address] [place] [address] Dr. Kaela Krause Neutrophils/100 WBC (Bld) 54.4 % Normal 43.0-75.0 [facility] Comment on above: Performed By: #### C MP #### [facility] [address] [place] [address] Dr. Kaela Krause Platelet mean volume (Bld) [Entitic vol] 9.7 fL Normal 9.5-13.5 [facility] Comment on above: Performed By: #### C MP #### [facility] [address] [place] [address] Dr. Kaela Krause PLT 186 103/ul Normal 150-450 [facility] Comment on above: Performed By: #### C MP #### [facility] [address] [place] [address] Dr. Kaela Krause RBC 4.35 106/ul Critically low 4.70-6.10 [facility] Comment on above: Performed By: #### C MP #### [facility] [address] [place] [address] Dr. Kaela Krause WBC 3.9 103/ul Critically low 4.0-11.0 [facility] Comment on above: Performed By: #### C MP #### [facility] [address] [place] [address] Dr. Kaela Krause POINT OF CARE GLUCOSEon 11-11 Glucose [Mass/Vol] 131 mg/dL Critically high 74-106 [facility] Comment on above: Performed By: #### C MP #### [facility] [address] [place] [address] Dr. Kaela Krause PROF 14(COMP METB)on 023 Albumin [Mass/Vol] 2.7 g/dL Critically low 3.4-5.0 [facility] Comment on above: Performed By: #### C MP #### [facility] [address] [place] [address] Dr. Kaela Krause Albumin/Globulin [Mass ratio] 0.8 {ratio} Normal [facility] Comment on above: Performed By: #### C MP #### [facility] [address] [place] [address] Dr. Kaela Krause ALP [Catalytic activity/Vol] 64 U/L Normal 46-116 [facility] Comment on above: Performed By: #### C MP #### [facility] [address] [place] [address] Dr. Kaela Krause ALT [Catalytic activity/Vol] 25 U/L Normal 16-63 [facility] Comment on above: Performed By: #### C MP #### [facility] [address] [place] [address] Dr. Kaela Krause Anion gap [Moles/Vol] 12.0 mmol/L Normal [facility] Comment on above: Performed By: #### C MP #### [facility] [address] [place] [address] Dr. Kaela Krause AST [Catalytic activity/Vol] 21 U/L Normal 15-37 [facility] Comment on above: Performed By: #### C MP #### [facility] [address] [address] [address] Kaela Krause Bilirubin [Mass/Vol] 0.2 mg/dL Normal 0.2-1.0 [facility] Comment on above: Performed By: #### C MP #### [facility] [address] [address] [address] Kaela Krause Calcium [Mass/Vol] 9.1 mg/dL Normal 8.5-10.1 [facility] Comment on above: Performed By: #### C MP #### [facility] [address] [place] [address] Dr. Kaela Krause Chloride [Moles/Vol] 104 mmol/L Normal 98-107 [facility] Comment on above: Performed By: #### C MP #### [facility] [address] [place] [address] Dr. Kaela Krause CO2 [Moles/Vol] 27.3 mmol/L Normal 21.0-32.0 [facility] Comment on above: Performed By: #### C MP #### [facility] [address] [place] [address] Dr. Kaela Krause Creatinine [Mass/Vol] 0.90 mg/dL Normal 0.70-1.30 [facility] Comment on above: Performed By: #### C MP #### [facility] [address] [place] [address] Dr. Kaela Krause EGFR-AF SYRIAN >60 Normal >=60 [facility] Comment on above: Performed By: #### C MP #### [facility] [address] [place] [address] Dr. Kaela Krause EGFR-NON AF SYRIAN >60 Normal >=60 [facility] Comment on above: Performed By: #### C MP #### [facility] [address] [place] [address] Dr. Kaela Krause Globulin (S) [Mass/Vol] 3.6 g/dL Normal [facility] Comment on above: Performed By: #### C MP #### [facility] [address] [address] [address] Kaela Krause Glucose [Mass/Vol] 107 mg/dL Critically high 74-106 [facility] Comment on above: Performed By: #### C MP #### [facility] [address] [address] [address] Kaela Krause Potassium [Moles/Vol] 3.3 mmol/L Critically low 3.5-5.1 [facility] Comment on above: Performed By: #### C MP #### [facility] [address] [address] [address] Kaela Krause Protein [Mass/Vol] 6.3 g/dL Critically low 6.4-8.2 [facility] Comment on above: Performed By: #### C MP #### [facility] [address] [place] [address] Dr. Kaela Krause Sodium [Moles/Vol] 140 mmol/L Normal 136-145 [facility] Comment on above: Performed By: #### C MP #### [facility] [address] [address] [address] Kaela Krause Urea nitrogen [Mass/Vol] 13.0 mg/dL Normal 7.0-18.0 [facility] Comment on above: Performed By: #### C MP #### [facility] [address] [place] [address] Dr. Kaela Krause Urea nitrogen/Creatinine [Mass ratio] 14.4 mg/mg Normal [facility] Comment on above: Performed By: #### C MP #### [facility] [address] [place] [address] Dr. Kaela Krause CBC AUTO DIFFon 11-30-2022 BASO # 0.0 103/ul Normal 0.0-0.1 [facility] Comment on above: Performed By: #### C MP #### [facility] [address] [address] [address] Kaela Krause Basophils/100 WBC (Bld) 0.4 % Normal 0.2-2.0 [facility] Comment on above: Performed By: #### C MP #### [facility] [address] [place] [address] Dr. Kaela Krause EO # 0.0 103/ul Normal 0.0-0.7 [facility] Comment on above: Performed By: #### C MP #### [facility] [address] [place] [address] Dr. Kaela Krause Eosinophils/100 WBC (Bld) 0.6 % Critically low 0.9-7.0 [facility] Comment on above: Performed By: #### C MP #### [facility] [address] [place] [address] Dr. Kaela Krause Erythrocyte distribution width (RBC) [Ratio] 14.4 % Normal 11.0-15.0 [facility] Comment on above: Performed By: #### C MP #### [facility] [address] [place] [address] Dr. Kaela Krause Hematocrit (Bld) [Volume fraction] 33.8 % Critically low 42.0-54.0 [facility] Comment on above: Performed By: #### C MP #### [facility] [address] [place] [address] Dr. Kaela Krause Hemoglobin (Bld) [Mass/Vol] 11.8 g/dL Critically low 14.0-18.0 [facility] Comment on above: Performed By: #### C MP #### [facility] [address] [place] [address] Dr. Kaela Krause IG # 0.03 10e3/ul Normal 0.00-0.03 [facility] Comment on above: Performed By: #### C MP #### [facility] [address] [place] [address] Dr. Kaela Krause IG % 0.6 % Critically high 0.0-0.5 [facility] Comment on above: Performed By: #### C MP #### [facility] [address] [place] [address] Dr. Kaela Krause LYMPH # 0.8 103/ul Critically low 1.2-3.8 [facility] Comment on above: Performed By: #### C MP #### [facility] [address] [address] [address] Kaela Krause Lymphocytes/100 WBC (Bld) 15.6 % Critically low 20.5-60.0 [facility] Comment on above: Performed By: #### C MP #### [facility] [address] [address] [address] Kaela Krause MANUAL DIFF REQ NO Normal [facility] Comment on above: Performed By: #### C MP #### [facility] [address] [address] [address] Kaela Krause MCH (RBC) [Entitic mass] 27.1 pg Normal 25.9-34.0 [facility] Comment on above: Performed By: #### C MP #### [facility] [address] [place] [address] Dr. Kaela Krause MCHC (RBC) [Mass/Vol] 34.9 g/dL Normal 29.9-35.2 [facility] Comment on above: Performed By: #### C MP #### [facility] [address] [place] [address] Dr. Kaela Krause MCV (RBC) [Entitic vol] 77.5 fL Critically low 80.0-94.0 [facility] Comment on above: Performed By: #### C MP #### [facility] [address] [place] [address] Dr. Kaela Krause MONO # 0.3 103/ul Normal 0.3-0.8 [facility] Comment on above: Performed By: #### C MP #### [facility] [address] [place] [address] Dr. Kaela Krause Monocytes/100 WBC (Bld) 6.0 % Normal 1.7-12.0 [facility] Comment on above: Performed By: #### C MP #### [facility] [address] [place] [address] Dr. Kaela Krause NEUT # 3.8 103/ul Normal 1.4-6.5 [facility] Comment on above: Performed By: #### C MP #### [facility] [address] [address] [address] Kaela Krause Neutrophils/100 WBC (Bld) 76.8 % Critically high 43.0-75.0 [facility] Comment on above: Performed By: #### C MP #### [facility] [address] [address] [address] Kaela Krause Platelet mean volume (Bld) [Entitic vol] 9.4 fL Critically low 9.5-13.5 [facility] Comment on above: Performed By: #### C MP #### [facility] [address] [address] [address] Kaela Krause PLT 167 103/ul Normal 150-450 [facility] Comment on above: Performed By: #### C MP #### [facility] [address] [place] [address] Dr. Kaela Krause RBC 4.36 106/ul Critically low 4.70-6.10 [facility] Comment on above: Performed By: #### C MP #### [facility] [address] [address] [address] Kaela Krause WBC 5.0 103/ul Normal 4.0-11.0 [facility] Comment on above: Performed By: #### C MP #### [facility] [address] [place] [address] PELVIS W CONon 11-30-2022 CT PELVIS W CON EXAMINATION: CT PELVIS W CON 11/30/2022. COMPARISON STUDY: Scrotal ultrasound 09/09/2022. HISTORY: Acute prostatitis TECHNIQUE: 3 mm sections were obtained of the pelvis following the administration of intravenous contrast. Coronal and sagittal reconstructed images were obtained. Dose reduction techniques were achieved by using automated exposure control and/or adjustment of mA and/or kV according to patient size and/or use of iterative reconstruction technique. FINDINGS: The prostate is enlarged with nonspecific heterogeneous parenchymal enhancement. The gland measures 4.5 x 5.4 x 4.7 cm. Urinary bladder wall demonstrates mild circumferential thickened and trabeculated appearance without surrounding inflammatory change or fluid. Seminal vesicles are symmetric. Moderate diverticular disease of the colon without diverticulitis or appendicitis. Patient may have had prior umbilical and right inguinal hernia repair. Small left inguinal hernia contains fat without bowel. There is partial visualization of previously identified right-sided hydrocele. This has transverse diameter of at least 5.5 cm. Atherosclerotic change of the aorta and its branches are noted. No significantly enlarged adenopathy. Multilevel spondylitic/facet arthritic changes at L4-L5 and L5-S1 noted. Chondrocalcinosis with arthritic changes involving articulations of the pelvis. There are a few punctate sclerotic foci involving the left femoral head. The largest measures 10 mm. No acute pelvic fracture or dislocation. IMPRESSION: 1. Colonic diverticulosis without diverticulitis or appendicitis. 2. Mild prostatomegaly with nonspecific heterogeneous parenchymal enhancement. Prostatitis cannot be excluded with this pattern. No there is no discrete abscess. 3. Persistent moderate size right-sided hydrocele, partially visualized, similar to that seen on scrotal ultrasound from 09/09/2022. 4. Prior umbilical and right inguinal hernia repair. Left inguinal hernia contains fat without bowel. 5. No acute fracture or dislocation. Moderate to severe degenerative changes at L4-L5 and L5-S1. Electronically authenticated by: JESUS HAIRSTON Date: 2022-11-30 12:49 Normal [facility] POINT OF CARE GLUCOSEon 11-11 Glucose [Mass/Vol] 103 mg/dL Normal 74-106 [facility] Comment on above: Performed By: #### C MP #### [facility] [address] [place] [address] Dr. Kaela Krause Glucose [Mass/Vol] 103 mg/dL Normal 74-106 [facility] Comment on above: Performed By: #### P OCGLUC #### [facility] [address] [address] [address] Kaela Krause Glucose [Mass/Vol] 157 mg/dL Critically high 74-106 [facility] Comment on above: Performed By: #### P OCGLUC #### [facility] [address] [address] [address] Kaela Krause PROF 14(COMP METB)on 023 Albumin [Mass/Vol] 2.9 g/dL Critically low 3.4-5.0 [facility] Comment on above: Performed By: #### C MP #### [facility] [address] [place] [address] Dr. Kaela Krause Albumin/Globulin [Mass ratio] 0.8 {ratio} Normal [facility] Comment on above: Performed By: #### C MP #### [facility] [address] [place] [address] Dr. Kaela Krause ALP [Catalytic activity/Vol] 56 U/L Normal 46-116 [facility] Comment on above: Performed By: #### C MP #### [facility] [address] [place] [address] Dr. Kaela Krause ALT [Catalytic activity/Vol] 24 U/L Normal 16-63 [facility] Comment on above: Performed By: #### C MP #### [facility] [address] [place] [address] Dr. Kaela Krause Anion gap [Moles/Vol] 12.8 mmol/L Normal [facility] Comment on above: Performed By: #### C MP #### [facility] [address] [place] [address] Dr. Kaela Krause AST [Catalytic activity/Vol] 18 U/L Normal 15-37 [facility] Comment on above: Performed By: #### C MP #### [facility] [address] [place] [address] Dr. Kaela Krause Bilirubin [Mass/Vol] 0.4 mg/dL Normal 0.2-1.0 [facility] Comment on above: Performed By: #### C MP #### [facility] [address] [place] [address] Dr. Kaela Krause Calcium [Mass/Vol] 8.8 mg/dL Normal 8.5-10.1 [facility] Comment on above: Performed By: #### C MP #### [facility] [address] [place] [address] Dr. Kaela Krause Chloride [Moles/Vol] 106 mmol/L Normal 98-107 [facility] Comment on above: Performed By: #### C MP #### [facility] [address] [place] [address] Dr. Kaela Krause CO2 [Moles/Vol] 27.6 mmol/L Normal 21.0-32.[address] [facility] Comment on above: Performed By: #### C MP #### [facility] [address] [address] [address] Kaela Krause Creatinine [Mass/Vol] 0.97 mg/dL Normal 0.70-1.30 [facility] Comment on above: Performed By: #### C MP #### [facility] [address] [address] [address] Kaela Krause EGFR-AF SYRIAN >60 Normal >=[address] [facility] Comment on above: Performed By: #### C MP #### [facility] [address] [address] [address] Kaela Krause EGFR-NON AF SYRIAN >60 Normal >=60 [facility] Comment on above: Performed By: #### C MP #### [facility] [address] [address] [address] Kaela Krause Globulin (S) [Mass/Vol] 3.5 g/dL Normal [facility] Comment on above: Performed By: #### C MP #### [facility] [address] [address] [address] Kaela Krause Glucose [Mass/Vol] 105 mg/dL Normal 74-106 [facility] Comment on above: Performed By: #### C MP #### [facility] [address] [address] [address] Kaela Krause Potassium [Moles/Vol] 3.4 mmol/L Critically low 3.5-5.1 [facility] Comment on above: Performed By: #### C MP #### [facility] [address] [address] [address] Kaela Krause Protein [Mass/Vol] 6.4 g/dL Normal 6.4-8.2 [facility] Comment on above: Performed By: #### C MP #### [facility] [address] [address] [address] Kaela Krause Sodium [Moles/Vol] 143 mmol/L Normal 136-145 [facility] Comment on above: Performed By: #### C MP #### [facility] [address] [address] [address] Kaela Krause Urea nitrogen [Mass/Vol] 9.0 mg/dL Normal 7.0-18.0 [facility] Comment on above: Performed By: #### C MP #### [facility] [address] [address] [address] Kaela Krause Urea nitrogen/Creatinine [Mass ratio] 9.3 mg/mg Normal [facility] Comment on above: Performed By: #### C MP #### [facility] [address] [address] [address] Kaela Krause CBC AUTO DIFFon 11-29-2022 BASO # 0.0 103/ul Normal 0.0-0.1 [facility] Comment on above: Performed By: #### C MP #### [facility] [address] [address] [address] Kaela Krause Basophils/100 WBC (Bld) 0.3 % Normal 0.2-2.0 [facility] Comment on above: Performed By: #### C MP #### [facility] [address] [address] [address] Kaela Krause EO # 0.0 103/ul Normal 0.0-0.7 [facility] Comment on above: Performed By: #### C MP #### [facility] [address] [address] [address] Kaela Krause Eosinophils/100 WBC (Bld) 0.1 % Critically low 0.9-7.0 [facility] Comment on above: Performed By: #### C MP #### [facility] [address] [address] [address] Kaela Krause Erythrocyte distribution width (RBC) [Ratio] 15.2 % Critically high 11.0-15.0 [facility] Comment on above: Performed By: #### C MP #### [facility] [address] [place] [address] Dr. Kaela Krause Hematocrit (Bld) [Volume fraction] 36.1 % Critically low 42.0-54.0 [facility] Comment on above: Performed By: #### C MP #### [facility] [address] [address] [address] Kaela Kraues Hemoglobin (Bld) [Mass/Vol] 11.9 g/dL Critically low 14.0-18.0 [facility] Comment on above: Performed By: #### C MP #### [facility] [address] [address] [address] Kaela Krause IG # 0.02 10e3/ul Normal 0.00-0.03 [facility] Comment on above: Performed By: #### C MP #### [facility] [address] [place] [address] Dr. Kaela Krause IG % 0.3 % Normal 0.0-0.5 [facility] Comment on above: Performed By: #### C MP #### [facility] [address] [place] [address] Dr. Kaela Krause LYMPH # 0.7 103/ul Critically low 1.2-3.8 [facility] Comment on above: Performed By: #### C MP #### [facility] [address] [place] [address] Dr. Kaela Krause Lymphocytes/100 WBC (Bld) 10.2 % Critically low 20.5-60.0 [facility] Comment on above: Performed By: #### C MP #### [facility] [address] [place] [address] Dr. Kaela Krause MANUAL DIFF REQ NO Normal [facility] Comment on above: Performed By: #### C MP #### [facility] [address] [place] [address] Dr. Kaela Krause MCH (RBC) [Entitic mass] 27.4 pg Normal 25.9-34.0 [facility] Comment on above: Performed By: #### C MP #### [facility] [address] [place] [address] Dr. Kaela Krause MCHC (RBC) [Mass/Vol] 33.0 g/dL Normal 29.9-35.2 [facility] Comment on above: Performed By: #### C MP #### [facility] [address] [address] [address] Kaela Krause MCV (RBC) [Entitic vol] 83.2 fL Normal 80.0-94.0 [facility] Comment on above: Performed By: #### C MP #### [facility] [address] [address] [address] Kaela Krause MONO # 0.3 103/ul Normal 0.3-0.8 [facility] Comment on above: Performed By: #### C MP #### [facility] [address] [address] [address] Kaela Krause Monocytes/100 WBC (Bld) 4.6 % Normal 1.7-12.0 [facility] Comment on above: Performed By: #### C MP #### [facility] [address] [address] [address] Kaela Krause NEUT # 5.9 103/ul Normal 1.4-6.5 [facility] Comment on above: Performed By: #### C MP #### [facility] [address] [address] [address] Kaela Krause Neutrophils/100 WBC (Bld) 84.5 % Critically high 43.0-75.0 [facility] Comment on above: Performed By: #### C MP #### [facility] [address] [address] [address] Kaela Krause Platelet mean volume (Bld) [Entitic vol] 9.4 fL Critically low 9.5-13.5 [facility] Comment on above: Performed By: #### C MP #### [facility] [address] [address] [address] Kaela Krause PLT 170 103/ul Normal 150-450 [facility] Comment on above: Performed By: #### C MP #### [facility] [address] [address] [address] Kaela Krause RBC 4.34 106/ul Critically low 4.70-6.10 [facility] Comment on above: Performed By: #### C MP #### [facility] [address] [address] [address] Kaela Krause WBC 7.0 103/ul Normal 4.0-11.0 [facility] Comment on above: Performed By: #### C MP #### [facility] [address] [address] [address] Kaela Krause CULTURE BLOODon 11-29-2022 Microscopic examination of blood, culture Culture Observations: NO GROWTH AT 5 DAYS. [facility] Comment on above: Performed By: #### B [id number] #### [facility] [address] [address] [address] Kaela Krause Microscopic examination of blood, culture Culture Observations: NO GROWTH AT 5 DAYS. [facility] Comment on above: Performed By: #### L ACT #### [facility] [address] [place] [address] Dr. Kaela Krause POINT OF CARE GLUCOSEon 11-11 Glucose [Mass/Vol] 108 mg/dL Critically high 74-106 [facility] Comment on above: Performed By: #### C MP #### [facility] [address] [place] [address] Dr. Kaela Krause Glucose [Mass/Vol] 114 mg/dL Critically high 74-106 [facility] Comment on above: Performed By: #### L ACT #### [facility] [address] [place] [address] Dr. Kaela Krause Glucose [Mass/Vol] 121 mg/dL Critically high -106 [facility] Comment on above: Performed By: #### P OCGLUC #### [facility] [address] [place] [address] Dr. Kaela Krause Glucose [Mass/Vol] 96 mg/dL Normal -106 [facility] Comment on above: Performed By: #### P OCGLUC #### [facility] [address] [place] [address] Dr. Kaela Krause PROF 14(COMP METB)on 023 Albumin [Mass/Vol] 3.0 g/dL Critically low 3.4-5.0 [facility] Comment on above: Performed By: #### C MP #### [facility] [address] [address] [address] Kaela Krause Albumin/Globulin [Mass ratio] 0.9 {ratio} Normal [facility] Comment on above: Performed By: #### C MP #### [facility] [address] [address] [address] Keala Krause ALP [Catalytic activity/Vol] 42 U/L Critically low 46-116 [facility] Comment on above: Performed By: #### C MP #### [facility] [address] [address] [address] Kaela Krause ALT [Catalytic activity/Vol] 17 U/L Normal 16-63 [facility] Comment on above: Performed By: #### C MP #### [facility] [address] [place] [address] Dr. Kaela Krause Anion gap [Moles/Vol] 13.7 mmol/L Normal [facility] Comment on above: Performed By: #### C MP #### [facility] [address] [place] [address] Dr. Kaela Krause AST [Catalytic activity/Vol] 16 U/L Normal 15-37 [facility] Comment on above: Performed By: #### C MP #### [facility] [address] [place] [address] Dr. Kaela Krause Bilirubin [Mass/Vol] 0.5 mg/dL Normal 0.2-1.0 [facility] Comment on above: Performed By: #### C MP #### [facility] [address] [place] [address] Dr. Kaela Krause Calcium [Mass/Vol] 8.4 mg/dL Critically low 8.5-10.1 [facility] Comment on above: Performed By: #### C MP #### [facility] [address] [place] [address] Dr. Kaela Krause Chloride [Moles/Vol] 107 mmol/L Normal 98-107 [facility] Comment on above: Performed By: #### C MP #### [facility] [address] [address] [address] Kaela Krause CO2 [Moles/Vol] 23.8 mmol/L Normal 21.0-32.0 [facility] Comment on above: Performed By: #### C MP #### [facility] [address] [address] [address] Kaela Krause Creatinine [Mass/Vol] 1.03 mg/dL Normal 0.70-1.30 [facility] Comment on above: Performed By: #### C MP #### [facility] [address] [address] [address] Kaela Krause EGFR-AF SYRIAN >60 Normal >=60 [facility] Comment on above: Performed By: #### C MP #### [facility] [address] [place] [address] Dr. Kaela Krause EGFR-NON AF SYRIAN >60 Normal >=60 [facility] Comment on above: Performed By: #### C MP #### [facility] [address] [address] [address] Kaela Krause Globulin (S) [Mass/Vol] 3.2 g/dL Normal [facility] Comment on above: Performed By: #### C MP #### [facility] [address] [address] [address] Kaela Krause Glucose [Mass/Vol] 96 mg/dL Normal 74-106 [facility] Comment on above: Performed By: #### C MP #### [facility] [address] [place] [address] Dr. Kaela Krause Potassium [Moles/Vol] 3.5 mmol/L Normal 3.5-5.1 [facility] Comment on above: Performed By: #### C MP #### [facility] [address] [place] [address] Dr. Kaela Krause Protein [Mass/Vol] 6.2 g/dL Critically low 6.4-8.2 [facility] Comment on above: Performed By: #### C MP #### [facility] [address] [place] [address] Dr. Kaela Krause Sodium [Moles/Vol] 141 mmol/L Normal 136-145 [facility] Comment on above: Performed By: #### C MP #### [facility] [address] [place] [address] Dr. Kaela Krause Urea nitrogen [Mass/Vol] 13.0 mg/dL Normal 7.0-18.0 [facility] Comment on above: Performed By: #### C MP #### [facility] [address] [place] [address] Dr. Kaela Krause Urea nitrogen/Creatinine [Mass ratio] 12.6 mg/mg Normal [facility] Comment on above: Performed By: #### C MP #### [facility] [address] [place] [address] Dr. Kaela Krause CBC AUTO DIFFon 11-28-2022 BASO # 0.0 103/ul Normal 0.0-0.1 [facility] Comment on above: Performed By: #### C MP #### [facility] [address] [place] [address] Dr. Kaela Krause Basophils/100 WBC (Bld) 0.2 % Normal 0.2-2.0 [facility] Comment on above: Performed By: #### C MP #### [facility] [address] [place] [address] Dr. Kaela Krause EO # 0.0 103/ul Normal 0.0-0.7 [facility] Comment on above: Performed By: #### C MP #### [facility] [address] [place] [address] Dr. Kaela Krause Eosinophils/100 WBC (Bld) 0.1 % Critically low 0.9-7.0 [facility] Comment on above: Performed By: #### C MP #### [facility] [address] [place] [address] Dr. Kaela Krause Erythrocyte distribution width (RBC) [Ratio] 14.9 % Normal 11.0-15.0 [facility] Comment on above: Performed By: #### C MP #### [facility] [address] [place] [address] Dr. Kaela Krause Hematocrit (Bld) [Volume fraction] 35.3 % Critically low 42.0-54.0 [facility] Comment on above: Performed By: #### C MP #### [facility] [address] [address] [address] Kaela Krause Hemoglobin (Bld) [Mass/Vol] 11.7 g/dL Critically low 14.0-18.0 [facility] Comment on above: Performed By: #### C MP #### [facility] [address] [address] [address] Kaela Krause IG # 0.09 10e3/ul Critically high 0.00-0.03 [facility] Comment on above: Performed By: #### C MP #### [facility] [address] [address] [address] Kaela Krause IG % 0.8 % Critically high 0.0-0.5 [facility] Comment on above: Performed By: #### C MP #### [facility] [address] [address] [address] Kaela Krause LYMPH # 0.8 103/ul Critically low 1.2-3.8 [facility] Comment on above: Performed By: #### C MP #### [facility] [address] [place] [address] Dr. Kaela Krause Lymphocytes/100 WBC (Bld) 6.7 % Critically low 20.5-60.0 [facility] Comment on above: Performed By: #### C MP #### [facility] [address] [address] [address] Kaela Krause MANUAL DIFF REQ NO Normal [facility] Comment on above: Performed By: #### C MP #### [facility] [address] [address] [address] Kaela Krause MCH (RBC) [Entitic mass] 27.6 pg Normal 25.9-34.0 [facility] Comment on above: Performed By: #### C MP #### [facility] [address] [place] [address] Dr. Kaela Krause MCHC (RBC) [Mass/Vol] 33.1 g/dL Normal 29.9-35.2 [facility] Comment on above: Performed By: #### C MP #### [facility] [address] [place] [address] Dr. Kaela Krause MCV (RBC) [Entitic vol] 83.3 fL Normal 80.0-94.0 [facility] Comment on above: Performed By: #### C MP #### [facility] [address] [place] [address] Dr. Kaela Krause MONO # 0.6 103/ul Normal 0.3-0.8 [facility] Comment on above: Performed By: #### C MP #### [facility] [address] [place] [address] Dr. Kaela Krause Monocytes/100 WBC (Bld) 5.4 % Normal 1.7-12.0 [facility] Comment on above: Performed By: #### C MP #### [facility] [address] [place] [address] Dr. Kaela Krause NEUT # 10.0 103/ul Critically high 1.4-6.5 [facility] Comment on above: Performed By: #### C MP #### [facility] [address] [place] [address] Dr. Kaela Krause Neutrophils/100 WBC (Bld) 86.8 % Critically high 43.0-75.0 [facility] Comment on above: Performed By: #### C MP #### [facility] [address] [place] [address] Dr. Kaela Krause Platelet mean volume (Bld) [Entitic vol] 9.7 fL Normal 9.5-13.5 [facility] Comment on above: Performed By: #### C MP #### [facility] [address] [place] [address] Dr. Kaela Krause PLT 225 103/ul Normal 150-450 [facility] Comment on above: Performed By: #### C MP #### [facility] [address] [place] [address] Dr. Kaela Krause RBC 4.24 106/ul Critically low 4.70-6.10 [facility] Comment on above: Performed By: #### C MP #### [facility] [address] [address] [address] Kaela Krause WBC 11.6 103/ul Critically high 4.0-11.0 [facility] Comment on above: Performed By: #### C MP #### [facility] [address] [address] [address] Kaela Krause BASO # 0.0 103/ul Normal 0.0-0.1 [facility] Comment on above: Performed By: #### C MP #### [facility] [address] [address] [address] Kaela Krause Basophils/100 WBC (Bld) 0.2 % Normal 0.2-2.0 [facility] Comment on above: Performed By: #### C MP #### [facility] [address] [address] [address] Kaela Krause EO # 0.0 103/ul Normal 0.0-0.7 [facility] Comment on above: Performed By: #### C MP #### [facility] [address] [address] [address] Kaela Krause Eosinophils/100 WBC (Bld) 0.1 % Critically low 0.9-7.0 [facility] Comment on above: Performed By: #### C MP #### [facility] [address] [address] [address] Kaela Krause Erythrocyte distribution width (RBC) [Ratio] 14.5 % Normal 11.0-15.0 [facility] Comment on above: Performed By: #### C MP #### [facility] [address] [address] [address] Kaela Krause Hematocrit (Bld) [Volume fraction] 40.0 % Critically low 42.0-54.0 [facility] Comment on above: Performed By: #### C MP #### [facility] [address] [address] [address] Kaela Krause Hemoglobin (Bld) [Mass/Vol] 13.4 g/dL Critically low 14.0-18.0 [facility] Comment on above: Performed By: #### C MP #### [facility] [address] [address] [address] Kaela Krause IG # 0.06 10e3/ul Critically high 0.00-0.03 [facility] Comment on above: Performed By: #### C MP #### [facility] [address] [address] [address] Kaela Krause IG % 0.5 % Normal 0.0-0.5 [facility] Comment on above: Performed By: #### C MP #### [facility] [address] [address] [address] Kaela Krause LYMPH # 0.4 103/ul Critically low 1.2-3.8 [facility] Comment on above: Performed By: #### C MP #### [facility] [address] [address] [address] Kaela Krause Lymphocytes/100 WBC (Bld) 3.4 % Critically low 20.5-60.0 [facility] Comment on above: Performed By: #### C MP #### [facility] [address] [address] [address] Kaela Krause MANUAL DIFF REQ NO Normal [facility] Comment on above: Performed By: #### C MP #### [facility] [address] [address] [address] Kaela Krause MCH (RBC) [Entitic mass] 27.6 pg Normal 25.9-34.0 [facility] Comment on above: Performed By: #### C MP #### [facility] [address] [address] [address] Kaela Krause MCHC (RBC) [Mass/Vol] 33.5 g/dL Normal 29.9-35.2 [facility] Comment on above: Performed By: #### C MP #### [facility] [address] [address] [address] Kaela Krause MCV (RBC) [Entitic vol] 82.3 fL Normal 80.0-94.0 [facility] Comment on above: Performed By: #### C MP #### [facility] [address] [address] [address] Kaela Krause MONO # 0.5 103/ul Normal 0.3-0.8 [facility] Comment on above: Performed By: #### C MP #### [facility] [address] [address] [address] Kaela Krause Monocytes/100 WBC (Bld) 4.1 % Normal 1.7-12.0 [facility] Comment on above: Performed By: #### C MP #### [facility] [address] [address] [address] Kaela Krause NEUT # 11.3 103/ul Critically high 1.4-6.[address] [facility] Comment on above: Performed By: #### C MP #### [facility] [address] [place] [address] Dr. Kaela Krause Neutrophils/100 WBC (Bld) 91.7 % Critically high 43.0-75.0 [facility] Comment on above: Performed By: #### C MP #### [facility] [address] [place] [address] Dr. Kaela Krause Platelet mean volume (Bld) [Entitic vol] 9.7 fL Normal 9.5-13.5 [facility] Comment on above: Performed By: #### C MP #### [facility] [address] [place] [address] Dr. Kaela Krause PLT 251 103/ul Normal 150-450 [facility] [facility] Comment on above: Performed By: #### C MP #### [facility] [address] [address] [address] Kaela Krause RBC 4.86 106/ul Normal 4.70-6.10 [facility] Comment on above: Performed By: #### C MP #### [facility] [address] [address] [address] Kaela Krause WBC 12.3 103/ul Critically high 4.0-11.[address] [facility] Comment on above: Performed By: #### C MP #### [facility] [address] [place] [address] Dr. Kaela Krause CULTURE BLOODon 11-28-2022 Microscopic examination of blood, culture Culture Observations: NO GROWTH AT 5 DAYS. Isolate 1 [id number] Normal [facility] Comment on above: Performed By: #### B [id number] #### [facility] [address] [place] [address] Dr. Kaela Krause Performed By: #### L ACT #### [facility] [address] [place] [address] Dr. Kaela Krause CULTURE URINEon 11-28-2022 CULTURE URINE Culture Observations : NO GROWTH. Normal [facility] Comment on above: Performed By: #### U RCX #### [facility] [address] [place] [address] Dr. Kaela Krause Covid-19 PCR ([facility])on 11-10 SARS-CoV-2 (COVID-19) RNA XAVIER+probe Ql (Unsp spec) Not detected Normal NOT DETECTED [facility] Comment on above: Result Comment: When diagnostic testing is negative, the possibility of a false negative should be considered in the context of a patient's recent exposures and the presence of clinical signs and symptoms consistent with SARS-CoV-2. This test is not yet approved or cleared by the [place] FDA. When there are no FDA-approved or cleared tests available, and other criteria are met, FDA can make tests available under an emergency access mechanism called an Emergency Use Authorization (EUA). The EUA for this test is supported by the [place] of Health and Human Service's declaration that circumstances exist to justify the emergency use of in vitro diagnostics for the detection and/or diagnosis of the virus that causes COVID-19. This EUA will remain in effect for the duration of the COVID-19 declaration justifying emergency of IVDs, unless it is terminated or revoked by the FDA (after which the test may no longer be used). Performed By: #### L ACT #### [facility] [address] [place] [address] Dr. Kaela Krause ER URINE PROFILEon 3 Bilirubin Ql (U) Negative Normal NEGATIVE [facility] Comment on above: Performed By: #### L ACT #### [facility] [address] [place] [address] Dr. Kaela Krause Color (U) YELLOW Normal YELLOW [facility] Comment on above: Performed By: #### L ACT #### [facility] [address] [place] [address] Dr. Kaela ROSSI A micrscopic examination will be performed if indicated. Normal [facility] Comment on above: Performed By: #### L ACT #### [facility] [address] [place] [address] Dr. Kaela Krause Glucose Ql (U) Negative Normal NEGATIVE [facility] Comment on above: Performed By: #### L ACT #### [facility] [address] [place] [address] Dr. Kaela Krause Hemoglobin Ql (U) LARGE Abnormal NEGATIVE [facility] Comment on above: Performed By: #### L ACT #### [facility] [address] [place] [address] Dr. Kaela Krause Ketones Ql (U) Negative Normal NEGATIVE [facility] Comment on above: Performed By: #### L ACT #### [facility] [address] [place] [address] Dr. Kalea Krause LEUKOCYTES SMALL Abnormal NEGATIVE [facility] Comment on above: Performed By: #### L ACT #### [facility] [address] [place] [address] Dr. Kaela Krause Nitrite Ql (U) Negative Normal NEGATIVE [facility] Comment on above: Performed By: #### L ACT #### [facility] [address] [place] [address] Dr. Kaela Krause pH (U) 6.0 [pH] Normal 5-9 [facility] Comment on above: Performed By: #### L ACT #### [facility] [address] [place] [address] Dr. Kaela Krause SPEC GRAVITY <=1.005 Abnormal 1.005-<=1.02 5 [facility] Comment on above: Performed By: #### L ACT #### [facility] [address] [place] [address] Dr. Kaela Krause UA PROTEIN Negative Normal NEGATIVE/ TRACE [facility] Comment on above: Performed By: #### L ACT #### [facility] [address] [place] [address] Dr. Kaela Krause UR MICRO IND INDICATED Normal [facility] Comment on above: Performed By: #### L ACT #### [facility] [address] [place] [address] Dr. Kaela Krause Urobilinogen Qn (U) 0.2 {Trey'U}/dL Normal 0.2 - 1. 0 [facility] Comment on above: Performed By: #### L ACT #### [facility] [address] [place] [address] Dr. Kaela Krause INFLUENZA A AND B AGon 11-28 INFLUANEGH SEE BELOW Normal [facility] Comment on above: Result Comment: Nega tive for Flu A protein angiten. Infection due to Flu A cannot be ruled out. Flu A angiten in the sample may be below the detection limit of the test. Performed By: #### C MP #### [facility] [address] [place] [address] Dr. Kaela Krause INFLUENZA A AG Negative Normal NEGATIVE SEE COMMENT [facility] Comment on above: Performed By: #### C MP #### [facility] [address] [place] [address] Dr. Kaela Krause INFLUENZA B AG Negative Normal NEGATIVE SEE COMMENT [facility] Comment on above: Performed By: #### C MP #### [facility] [address] [place] [address] Dr. Kaela Krause INFLUPOSHB SEE BELOW Normal [facility] Comment on above: Result Comment: NOTE : Live attenuated influenzae vaccine viruses can cause a positive result for a rapid influenza diagnostic test if administered up to 7 days prior to rapid testing. Performed By: #### C MP #### [facility] [address] [place] [address] Dr. Kaela Krause LACTATE/LACTIC ACIDon 2022 Lactate [Moles/Vol] 1.4 mmol/L Normal 0.4-1.9 [facility] Comment on above: Performed By: #### C MP #### [facility] [address] [address] [address] Kaela Krause Lactate [Moles/Vol] 1.0 mmol/L Normal 0.4-1.9 [facility] Comment on above: Performed By: #### L ACT #### [facility] [address] [address] [address] Kaela Krause Lactate [Moles/Vol] 2.6 mmol/L Critically high 0.4-1.9 [facility] Comment on above: Performed By: #### C MP #### [facility] [address] [address] [address] Kaela Krause POINT OF CARE GLUCOSEon 11-10 Glucose [Mass/Vol] 120 mg/dL Critically high 74-106 [facility] Comment on above: Performed By: #### C MP #### [facility] [address] [address] [address] Kaela Krause Glucose [Mass/Vol] 77 mg/dL Normal 74-106 [facility] Comment on above: Performed By: #### C MP #### [facility] [address] [place] [address] Dr. Kaela Krause Glucose [Mass/Vol] 97 mg/dL Normal 74-106 [facility] Comment on above: Performed By: #### L ACT #### [facility] [address] [address] [address] Kaela Krause Glucose [Mass/Vol] 112 mg/dL Critically high 74-106 [facility] Comment on above: Performed By: #### C MP #### [facility] [address] [address] [address] Kaela Krause PROF 14(COMP METB)on 023 Albumin [Mass/Vol] 3.8 g/dL Normal 3.4-5.0 [facility] Comment on above: Performed By: #### C MP #### [facility] [address] [place] [address] Dr. Kaela Krause Albumin/Globulin [Mass ratio] 1.2 {ratio} Normal [facility] Comment on above: Performed By: #### C MP #### [facility] [address] [address] [address] Kaela Krause ALP [Catalytic activity/Vol] 55 U/L Normal 46-116 [facility] Comment on above: Performed By: #### C MP #### [facility] [address] [address] [address] Kaela Krause ALT [Catalytic activity/Vol] 18 U/L Normal 16-63 [facility] Comment on above: Performed By: #### C MP #### [facility] [address] [address] [address] Kaela Krause Anion gap [Moles/Vol] 14.4 mmol/L Normal [facility] Comment on above: Performed By: #### C MP #### [facility] [address] [address] [address] Kaela Krause AST [Catalytic activity/Vol] 17 U/L Normal 15-37 [facility] Comment on above: Performed By: #### C MP #### [facility] [address] [address] [address] Kaela Krause Bilirubin [Mass/Vol] 0.8 mg/dL Normal 0.2-1.0 [facility] Comment on above: Performed By: #### C MP #### [facility] [address] [address] [address] Kaela Krause Calcium [Mass/Vol] 9.6 mg/dL Normal 8.5-10.1 [facility] Comment on above: Performed By: #### C MP #### [facility] [address] [address] [address] Kaela Krause Chloride [Moles/Vol] 103 mmol/L Normal 98-107 [facility] Comment on above: Performed By: #### C MP #### [facility] [address] [address] [address] Kaela Krause CO2 [Moles/Vol] 24.3 mmol/L Normal 21.0-32.0 [facility] Comment on above: Performed By: #### C MP #### [facility] [address] [address] [address] Kaela Krause Creatinine [Mass/Vol] 1.18 mg/dL Normal 0.70-1.30 [facility] Comment on above: Performed By: #### C MP #### [facility] [address] [address] [address] Kaela Krause EGFR-AF SYRIAN >60 Normal >=60 [facility] Comment on above: Performed By: #### C MP #### [facility] [address] [address] [address] Kaela Krause EGFR-NON AF SYRIAN >60 Normal >=60 [facility] Comment on above: Performed By: #### C MP #### [facility] [address] [place] [address] Dr. Kaela Krause Globulin (S) [Mass/Vol] 3.3 g/dL Normal [facility] Comment on above: Performed By: #### C MP #### [facility] [address] [place] [address] Dr. Kaela Krause Glucose [Mass/Vol] 163 mg/dL Critically high 74-106 [facility] Comment on above: Performed By: #### C MP #### [facility] [address] [place] [address] Dr. Kaela Krause Potassium [Moles/Vol] 3.7 mmol/L Normal 3.5-5.1 [facility] Comment on above: Performed By: #### C MP #### [facility] [address] [place] [address] Dr. Kaela Krause Protein [Mass/Vol] 7.1 g/dL Normal 6.4-8.2 [facility] Comment on above: Performed By: #### C MP #### [facility] [address] [place] [address] Dr. Kaela Krause Sodium [Moles/Vol] 138 mmol/L Normal 136-145 [facility] Comment on above: Performed By: #### C MP #### [facility] [address] [place] [address] Dr. Kaela Krause Urea nitrogen [Mass/Vol] 21.0 mg/dL Critically high 7.0-18.0 [facility] Comment on above: Performed By: #### C MP #### [facility] [address] [address] [address] Kaela Krause Urea nitrogen/Creatinine [Mass ratio] 17.8 mg/mg Normal [facility] Comment on above: Performed By: #### C MP #### [facility] [address] [address] [address] Kaela Krause PROF CHEM 8 (BAS METB)on Anion gap [Moles/Vol] 11.5 mmol/L Normal [facility] Comment on above: Performed By: #### C MP #### [facility] [address] [address] [address] Kaela Krause Calcium [Mass/Vol] 8.4 mg/dL Critically low 8.5-10.1 [facility] Comment on above: Performed By: #### C MP #### [facility] [address] [address] [address] Kaela Krause Chloride [Moles/Vol] 109 mmol/L Critically high 98-107 [facility] Comment on above: Performed By: #### C MP #### [facility] [address] [address] [address] Kaela Krause CO2 [Moles/Vol] 26.7 mmol/L Normal 21.0-32.0 [facility] Comment on above: Performed By: #### C MP #### [facility] [address] [place] [address] Dr. Kaela Krause Creatinine [Mass/Vol] 0.98 mg/dL Normal 0.70-1.30 [facility] Comment on above: Performed By: #### C MP #### [facility] [address] [place] [address] Dr. Kaela Krause EGFR-AF SYRIAN >60 Normal >=60 [facility] Comment on above: Performed By: #### C MP #### [facility] [address] [address] [address] Kaela Krause EGFR-NON AF SYRIAN >60 Normal >=60 [facility] Comment on above: Performed By: #### C MP #### [facility] [address] [place] [address] Dr. Kaela Krause Glucose [Mass/Vol] 117 mg/dL Critically high 74-106 [facility] Comment on above: Performed By: #### C MP #### [facility] [address] [place] [address] Dr. Kaela Krause Potassium [Moles/Vol] 4.2 mmol/L Normal 3.5-5.1 [facility] Comment on above: Performed By: #### C MP #### [facility] [address] [place] [address] Dr. Kaela Krause Sodium [Moles/Vol] 143 mmol/L Normal 136-145 [facility] Comment on above: Performed By: #### C MP #### [facility] [address] [place] [address] Dr. Kaela Krause Urea nitrogen [Mass/Vol] 16.0 mg/dL Normal 7.0-18.0 [facility] Comment on above: Performed By: #### C MP #### [facility] [address] [place] [address] Dr. Kaela Krause Urea nitrogen/Creatinine [Mass ratio] 16.3 mg/mg Normal [facility] Comment on above: Performed By: #### C MP #### [facility] [address] [place] [address] Dr. Kaela Krause URINE MICROSCOPIC ONLYon BACTERIA TRACE Abnormal NONE SEEN [facility] Comment on above: Performed By: #### L ACT #### [facility] [address] [place] [address] Dr. Kaela Krause Bacteria identified Cx Nom (U) INDICATED Normal [facility] Comment on above: Performed By: #### L ACT #### [facility] [address] [place] [address] Dr. Kaela Krause CAST NONE SEEN Normal NONE SEEN [facility] Comment on above: Performed By: #### L ACT #### [facility] [address] [address] [address] Kaela Krause Crystals LM Nom (Urine sed) NONE SEEN Normal NONE SEEN [facility] Comment on above: Performed By: #### L ACT #### [facility] [address] [place] [address] Dr. Kaela Krause Epithelial cells LM Ql (Urine sed) RARE Normal NONE SEEN /RARE [facility] Comment on above: Performed By: #### L ACT #### [facility] [address] [place] [address] Dr. Kaela Krause MUCOUS NONE SEEN Normal NONE SEEN [facility] Comment on above: Performed By: #### L ACT #### [facility] [address] [place] [address] Dr. Kaela Krause RBC 2-5 Abnormal 0-2 [facility] Comment on above: Performed By: #### L ACT #### [facility] [address] [place] [address] Dr. Kaela Krause WBC 2-5 Abnormal NONE SEEN [facility] Comment on above: Performed By: #### L ACT #### [facility] [address] [place] [address] Dr. Kaela Krause XR CHEST 1 Von 11-28-2022 XR CHEST 1 V CHEST 1 VIEW, 11/27/2022 11:21 PM EST CLINICAL INDICATION: COUGH. . COMPARISON: None. FINDINGS: Cardiac size, mediastinal contour, and pulmonary vascularity appear within normal limits. The lungs and pleural spaces appear clear. No acute osseous abnormality or suspicious bony lesion is identified. IMPRESSION: No acute findings. Electronically authenticated by: KRISTIN SINGH Date: 2022-11-28 00:38 Normal [facility] Consent for Procedure/Surger yon 11-27-2022 Consent for Procedure/Surgery [id number] 1.00CD:127 Normal [facility] IntraOperative Documentson 0 11-27-2022 IntraOperative Documents [id number] 1.00CD:127 Normal [facility] Consent for Treatmenton 11-10 Consent for Treatment [id number] .00CD:127 Normal [facility] Main OR Intraoperative Recor don 11-26-2022 Main OR Intraoperative Record IntraOp Document Type FTURO Summary Primary Physician: Christiano MCCAIN MD Finalized Date/Time: 11/26/22 13:26:07 Pt. Name: PING KENNEYMONIQUE/Sex: 1955 Male Med Rec #: [id number] Physician: Christiano MCCAIN MD Financial #: [id number] Pt. Type: O Room/Bed: / Admit/Disch: 11/20/22 11:22:00 - Institution: Case Times FTURO Entry 1 Patient Times In Room 11/26/22 09:25:00 Out Room 11/26/22 09:52:00 Procedure Times Start 11/26/22 09:32:00 Stop 11/26/22 09:46:00 Anesthesia Times Last Modified By: Kirsten LAGUERRE, PRAVIN, Joellen 11/26/22 09:47:25 Case Attendance FTURO Entry 1 Entry 2 Entry 3 Case Attendee KALYN CHAKRABORTY, Christiano Curtis RN, CNOR, Carol GUARDADO, Zaina Cuenca Role Performed Surgeon - Primary Ticket Puller - Primary Scrub - Primary Time In 11/26/22 09:25:00 11/26/22 09:25:00 11/26/22 09:25:00 Time Out 11/26/22 09:52:00 11/26/22 09:52:00 11/26/22 09:52:00 Procedure PROSTATE TRANSPERINEAL PROSTATE TRANSPERINEAL PROSTATE TRANSPERINEAL BIOPSY WITH ULTRA(.) BIOPSY WITH ULTRA(.) BIOPSY WITH ULTRA(.) Comments Last Modified By: Kirsten RN, CNOR, Kirsten RN, MARLENIOR, Kirsten RN, MARLENIOR, Joellen 11/26/22 Joellen 11/26/22 Joellen 11/26/22 09:47:27 09:47:27 09:47:27 Surgical Procedures FTURO Entry 1 Procedure Description Procedure PROSTATE TRANSPERINEAL Modifiers . BIOPSY WITH ULTRASOUND Surgeon Description TRANSPERINAL BIOPSY Primary Procedure Yes Primary Surgeon Christiano MCCAIN MD 11/26/22 09:32:00 Stop 11/26/22 09:46:00 Anesthesia Type Local Surgical Service Urology Wound Class 3 - Contaminated Last Modified By: PRAVIN Curtis RN, Ruthann 11/26/22 09:47:29 General Case Data FTURO Pre-Care Text: Classifies surgical wound, implements aseptic technique, initiates traffic control Entry 1 Case Information OR URO 1 FT Case Level None Wound Class 2 - Clean-Contaminated Specialty Urology Preop Diagnosis ELEVATED PSA Postop Same As Preop Yes Postop Diagnosis ELEVATED PSA Outcomes Met? Yes Last Modified By: PRAVIN Curtis RN, Ruthann 11/26/22 09:07:38 Post-Care Text: The patient is free from signs and symptoms of infection EU IntraOp - FTURO Pre-Care Text: Implements protective measures prior to operative or invasive procedure, confirms identity before the operative or invasive procedure, verifies operative procedure, surgical site, and laterality Entry 1 EU Perioperative Protocols Procedure(s) PROSTATE TRANSPERINEAL Patient Identity Birthday, ID Band BIOPSY WITH ULTRA(.) Verified (select at Check, Patient least 2): Participation Consents / H and P HandP, Surgery/Procedure Operative Site N/A Verified Consent Marking Verified Surgical Site Yes Laterality Verified n/a Verified Procedure Verified Yes Correct Patient Yes Position Verified Availability Equipment, Medication Time Out Christiano MCCAIN MD, Verified (If Participants Kirsten LAGUERRE, MARLENIOR, Applicable) Carol Cuenca CST, Julie A Time Out Complete 11/26/22 09:31:00 Allergies Reviewed? Yes Allergies Reviewed Self/Patient With Body Position Lateral, right side up Prep Agents Betadine Solution Skin. Condition Unable to Visualize Additional Tissue Specimens Collected Vitals - EU Blood Pressure 143/83 Pulse 53 bpm Respirations 16 br/min SPO2 EBL 0 IandO - EU Total Intake 0 mL Total Output 0 mL Outcomes Met? Yes Last Modified By: PRAVIN Curtis RN, Ruthann 11/26/22 09:39:09 Post-Care Text: The patient is free from signs and symptoms of injury caused by extraneous objects Sign Out FTURO Entry 1 Before Patient Leaves OR Nurse verbally Yes Nurse verbally n/a confirms with the confirms with the team the name of team that the procedure(s) instrument, sponge, recorded and needle counts are correct (or N/A) Nurse verbally Yes Nurse verbally n/a confirms with the confirms with the team how the team whether there specimen is labeled are any equipment (including patient problems to be name), if applicable addressed Sign Out Complete 11/26/22 09:48:00 Last Modified By: PRAVIN Curtis RN, Ruthann 11/26/22 09:47:45 Case Comments Finalized By: PRAVIN Curtis RN, Ruthann Document Signatures Signed By: PRAVIN Curtis RN, Ruthann 11/26/22 09:47 PRAVIN Curtis RN, Ruthann 11/26/22 09:48 PRAVIN Curtis RN, Ruthann 11/26/22 13:26 Normal [facility] Main OR Preoperative Recordo n 11-26-2022 Main OR Preoperative Record Holding Area Document Type FTURO Summary Primary Physician: Christiano MCCAIN MD Finalized Date/Time: 11/26/22 13:26:15 Pt. Name: MONIQUE FENG JR./Sex: 1955 Male Med Rec #: [id number] Physician: Christiano MCCAIN MD Financial #: [id number] Pt. Type: O Room/Bed: / Admit/Disch: 11/20/22 11:22:00 - Institution: Case Times Holding FTURO Pre-Care Text: Verifies consent for planned procedure, identifies individual values and wishes concerning care, includes family members in perioperative teaching Secures patient's records' belongings, and valuables, maintains patient's dignity and privacy, and maintains patient confidentiality Entry 1 In Holding 11/26/22 08:42:00 Outcomes Met? Yes Last Modified By: Elida Gresham LPN 11/26/22 08:43:03 Post-Care Text: The patient participates in decisions affecting his or her perioperative plan of care The patient's right to privacy is maintained Surgery Checklist FTURO Entry 1 Patient Birthday, Patient Procedure History and Physical, Identification: Participation Verification: Surgical Consent, With Patient NPO after Midnight: No Date/Time: 11/26/22 08:43:00 Personal Items: Glasses, Jewelry Personal Items clothes Comment: Limitations: na Complaints of Pain: No Pain Comment: na Skin Integrity Intact, [place], Warm, & Dry Vitals - EU Blood Pressure 143/83 Pulse 53 bpm Respirations 16 br/min SPO2 96 % RN Reviewed Yes Last Modified By: PRAVIN Curtis RN, Ruthann 11/26/22 09:32:46 General Comments: temp:36.2 Finalized By: PRAVIN Curtis RN, Ruthann Document Signatures Signed By: Mp [email or web address] 11/26/22 08:43 PRAVIN Curtis RN, Ruthann 11/26/22 09:32 PRAVIN Curtis RN, Ruthann 11/26/22 13:26 Normal [facility] Operative Reporton 3 Operative Report Patient: MONIQUE FENG JR Age: 67 years Sex: Male : 1955 Associated Diagnoses: None Author: Christiano MCCAIN MD Procedure Operative Information Details: Date/ Time: 11/26/2022 09:46:00. Pre-Op Dx: Elevated PSA - R97.20. Post-Op Dx: Same. Anesthesia Type: Local, Periprostatic Nerve Block. Procedure: Transrectal Ultrasound and Transrectal Ultrasound-Guided Biopsy of the Prostate. Complications: None. Risks/Benefits/Inform ed Consent: Surgical risks, benefits, details of the procedure have been explained to the patient, Full informed consent has been obtained. Intraoperative Information Prepped: The patient was brought to the office suite, placed in the modified left lateral Thomas position, The patient was draped appropriately, 80 mg Gentamicin IM injection administered. Procedure: Then 2% Xylocaine jelly was used for intrarectal anesthesia, After waiting several minutes, a well lubricated ultrasound probe was introduced per rectum, The prostate was carefully evaluated in the AP and Sagittal views. Volume: 32 CC. Specimens Removed: A total of 12 biopsies were taken, 6 from each side, and sent to pathology. Devices Implanted: None. Postoperative Information Discharge: The patient tolerated the procedure well and was discharged home in satisfactory condition, The patient was instructed to (Finish antibiotics, Avoid strenuous activity, Go to the emergency room for gross bleeding, fever, or chills). Radiology Report Procedure: Transrectal Ultrasound of the Prostate, Transrectal US guided needle biopsy of the prostate. Narrative: Ultrasound probe is introduced and performed in the longitudinal and transverse plains, The gland measures (53 MM Length, 43 MM Width, 27 MM Depth, with a calculated volume of 32 CC), The prostatic capsule and seminal vesicles appear to be within normal limits, The peripheral zone demonstrates No abnormalities, Rest of the prostate demonstrates No abnormalities, Ultrasound guidance was then utilized to obtain 12 biopsies, These were sent to pathology for evaluation. Normal [facility] Comment on above: Result Comment: Elec tronically Signed By: KALYN CHAKRABORTY, Christiano Carr\Date and Time Signed: 11/26/22 09:47 EST Patient Educationon 11-26-19 Patient Education Custom Transrectal Ultrasound of the Prostate with US guided biopsy ? Even though there are no visible incisions, multiple prostate biopsies have been taken through the rectum and you need to follow some instructions to minimize the risks of bleeding. ? You may see some blood in your urine and stool for up to 1 week (and blood in the semen for several months) ? Diet -You may resume your normal diet, but you may want to avoid alcohol, carbonated drinks, caffeine, and spicy foods, which may increase the irritation from the surgery. -Drink plenty of water to keep the urine clear. ? Activity -You should limit any physical activity for about 48 hours -No heavy lifting or straining (10 pound limit) -No driving a car and limit long car rides for 2 days -No strenuous exercise -No sexual intercourse until this is discussed with your doctor ? Bowels -Try to keep your bowel movements soft to minimize straining to have a bowel movement. -You may use a stool softener or over the counter laxative if needed -Difficult bowel movement may lead to straining and bleeding from the prostate ? Medications -You may resume your home medications unless instructed otherwise -Hold aspirin, ibuprofen, Coumadin (warfarin) and other blood thinners for about two days or until there is no active bleeding unless otherwise instructed -Finish the antibiotic which you have already started ? Things to watch for which would require an Emergency Room visit or call 911: (this is not a complete list) -Persistent or heavy bleeding or blood clots from the rectum or in the urine -Inability to urinate -Fever over 101.5 degrees Fahrenheit, with or without chills -Severe drug reactions with itching, hives or rash -Tenderness or swelling of the calves, chest pain, or shortness of breath ? Please call the office to arrange for your post-operative appointment in 1-2 weeks [phone] or [phone] Normal [facility] Prostate Histology ([facility]) on 11-26-2022 PH Method of Extraction Needle Biopsy Normal [facility] Comment on above: Performed By: #### 1 [id number] ####[facility] [address] [place] [address] PH Number of Jars 2 Invalid Interpretation Code [facility] Comment on above: Performed By: #### 1 [id number] ####[facility] [address] [place] [address] PH Specimen 1 L Apx Prostate Normal [facility] Comment on above: Performed By: #### 1 [id number] ####[facility] [address] [place] [address] PH Specimen 10 R Lat Bse Prost Normal [facility] Comment on above: Performed By: #### 1 [id number] ####[facility] [address] [place] [address] PH Specimen 11 R Lat Mid Prost Normal [facility] Comment on above: Performed By: #### 1 [id number] ####[facility] [address] [place] [address] PH Specimen 12 R Mid Prostate Normal [facility] Comment on above: Performed By: #### 1 [id number] ####[facility] [address] [place] [address] PH Specimen 2 L Base Prostate Normal [facility] Comment on above: Performed By: #### 1 [id number] ####[facility] [address] [place] [address] PH Specimen 3 L Lat Apx Prost Normal [facility] Comment on above: Performed By: #### 1 [id number] ####[facility] [address] [place] [address] PH Specimen 4 L Lat Bse Prost Normal [facility] Comment on above: Performed By: #### 1 [id number] ####[facility] [address] [place] [address] PH Specimen 5 L Mid Prostate Normal [facility] Comment on above: Performed By: #### 1 [id number] ####[facility] [address] [place] [address] PH Specimen 6 L Lat Mid Prost Normal [facility] Comment on above: Performed By: #### 1 [id number] ####[facility] [address] [place] [address] PH Specimen 7 R Apx Prostate Normal [facility] Comment on above: Performed By: #### 1 [id number] ####[facility] [address] [place] [address] PH Specimen 8 R Base Prostate Normal [facility] Comment on above: Performed By: #### 1 [id number] ####[facility] [address] [place] [address] PH Specimen 9 R Lat Apx Prost Normal [facility] Comment on above: Performed By: #### 1 [id number] ####[facility] [address] [place] [address] PH Type of Service Technical Only Normal [facility] Comment on above: Performed By: #### 1 [id number] ####[facility] [address] [place] [place] [address] RAD - MRI Reporton 2 RAD - MRI Report [id number] .00CD:127 Normal [facility] MR prostate wo/w conon 10-01 MR prostate wo/w con [facility] Main [address] [address] MRI Report Signed Patient: Monique Feng MR#: [id number] 02 : 1955 Acct:[id number] Age/Sex: 67 / M ADM Date: 09/20/22 Loc: MR Room: Type: DEP CLI Attending Dr: Christiano Mccain MD Copies to: Christiano Mccain MD Ordering Provider: Christiano Mccain MD Date of Service: 09/20/22 MR/MR prostate wo/w con: R97.20 EXAMINATION: MR prostate wo/w con HISTORY: Elevated PSA COMPARISON: NONE TECHNIQUE: Multiparametric imaging of the prostate gland was performed with IV contrast. FINDINGS: Prostate Dimensions: 4.4 x 3.5 x 3.9 cm Prostate Volume: 31 mL Peripheral Zone: Heterogenous inT2 signal suggestive of prior prostatitis. No suspicious T2 or ADC map abnormality is identified to suggest prostate malignancy. Central/Transitional Zone: BPH changes. Seminal Vesicles: Unremarkable Neurovascular bundles: Unremarkable. Lymphadenopathy: No evidence of lymphadenopathy. Bladder: No focal lesion. Bowel: Diverticulosis Peritoneal Cavity: Left-sided fat filled inguinal hernia. Partially visualized hydroceles . Bones: No suspicious bony lesion. MR/MR prostate wo/w con IMPRESSION: 1. No MRI evidence of prostate malignancy. 2. BPH changes. 3. Partially visualized bilateral hydroceles. Impression dictated by: Matteo Stanley Jr., D.O.10/01/2022 8:20 AM Dictation Location: [place] [address] Transcribed By: [facility] 10/01/22819 Dictated By: Matteo Stanley Jr, DO 10/01/22813 Signed By: 10/01/22819 [facility] ISTAT XRay CREon 09-21-2022 ISTAT GFR ( > 60 [facility] Comment on above: Result Comment: GFR estimated reference range: According to KDOQI guidelines, <60 ml/min/1.73m2 is sufficient to diagnose a patient with chronic kidney disease. PERFORMED BY: [place] [address] PATHOLOGIST [employer] ATTENDANT MELISA FRANK M.D. Performed By: #### I SCRE #### [address] Point of Care testing , ISTAT GFR (Non- Am > 60 [facility] Comment on above: Performed By: #### I SCRE #### [facility] [address] [place] [address] [facility] Point of Care testing , No Panel InformationOrdered By: Christiano Mccain on 09-20-2022 POC Estimated GFR > 60 [facility] Comment on above: GFR estimated refere nce range: According to KDOQI guidelines, <60 ml/min/1.73m2 is sufficient to diagnose a patient with chronic kidney disease. POC Estimated GFR Non- Amer > 60 [facility] Whole blood creatinine measu rementOrdered By: Christiano Mccain on 09-20-2022 Creatinine [Mass/Vol] 1.0 mg/dL Normal 0.6-1.3 [facility] Comment on above: ER/ESD physician is notified/shown all ISTAT results.Critical values may be confirmed by laboratory testing ifdeemed necessary by ER attending doctor. Result Comment: ER/E SD physician is notified/shown all ISTAT results. Critical values may be confirmed by laboratory testing if deemed necessary by ER attending doctor. Performed By: #### I SCRE #### [facility] [address] [place] [address] [facility] Point of Care testing , Lab Reportson 09-15-2022 Lab Reports [id number] .[id number]:127 Normal [facility] RAD - Ultrasound Reporton RAD - Ultrasound Report [id number] .00CD:127 Normal [facility] Pre-Certification Formon Pre-Certification Form [id number] 1.00CD:127 Normal [facility] US SCROTUMon 09-09-2022 US SCROTUM EXAMINATION: US SCROTUM HISTORY: Hydrocele of testis COMPARISON: No relevant comparison available. TECHNIQUE: High-resolution sonographic imaging of the scrotum and contents was performed. FINDINGS: The right testicle is normal in size, contour and homogeneous echotexture measuring 4.3 x 2.7 x 2.7 cm. Normal color flow. No focal intratesticular mass. The right epididymis is significant for area of anechoic echogenicity measuring 1.7 cm, simple cysts. Large right hydrocele measuring 9.6 x 7.3 x 5.9 cm. No varicocele The left testicle is normal in size, contour and homogeneous echotexture measuring 3.7 x 2.8 x 3.0 cm. Normal color flow. No focal intratesticular mass. The left epididymis is normal. Moderate left hydrocele measuring 4.7 x 3.7 x 3.6 cm. No varicocele IMPRESSION: 9.6 cm right and 4.7 cm left hydroceles Electronically authenticated by: NICO GRESHAM Date: 2022-09-09 12:44 Normal [facility] Ambulatory Visit Summaryon 1 Ambulatory Visit Summary PINGMONIQUE Thornton JR :1955 Visit Date:09/06/2022 Ambulatory Visit Instructions Your Diagnosis Elevated PSA Hydrocele Tests Performed Urnls Dip Stick Auto w/o Microscopy POC 50827 MRI Pelvis (Soft Tissue) w/ + w/o contrast -- Results Pending -- US Scrotum (Contents) -- Results Pending -- Please visit your patient portal for your results or contact your primary care physician. Your Care Team Attending Physician - Christiano MCCAIN MD Primary Care Physician - Jazmine Bradford MD This Is Your Medications List Contact prescribing physician if questions or concerns ascorbic acid (Vitamin C) aspirin (aspirin 81 mg oral tablet) atenolol (atenolol 25 mg Tab) metformin (metformin 500 mg Tab) multivitamin (Multi Vitamins oral tablet) omeprazole Procedures Performed Hernia repair (09/28/2019), Colonoscopy (06/25/2019), Arthroscopy of knee right, Open repair of inguinal hernia, Repair of umbilical hernia. Discharge Vitals Heart Rate (Peripheral) 62 Respiratory Rate 16 Blood Pressure 127/84 Height 179 cm Height 70 in Weight 86 kg Weight 189.2 lb BMI 26.84 What to do next You Need to Schedule the Following Appointments Follow Up with Christiano MCCAIN MD, URL When: Where: [address] [place] [address]- Medications What How Much When Instructions Unchanged ascorbic acid (Vitamin C) 500 Milligram By Mouth Every day Contact prescribing physician if questions or concerns Unchanged aspirin (aspirin 81 mg oral tablet) 1 Tablets By Mouth Every day Contact prescribing physician if questions or concerns Unchanged atenolol (atenolol 25 mg Tab) 1 Tablets By Mouth Every day Contact prescribing physician if questions or concerns Unchanged metformin (metformin 500 mg Tab) 1 Tablets By Mouth 2 times a day Contact prescribing physician if questions or concerns Unchanged multivitamin (Multi Vitamins oral tablet) 1 Tablets By Mouth Every day Contact prescribing physician if questions or concerns Unchanged omeprazole 20 Milligram By Mouth Every day Contact prescribing physician if questions or concerns Test Results Urnls Dip Stick Auto w/o Microscopy POC 65968 (09/06/2022) Bilirubin Urine Dipstick - Negative Blood Urine Dipstick - Negative Glucose Urine Dipstick - Negative Ketones Urine Dipstick - Negative Leukocytes Urine Dipstick - Negative Nitrite Urine Dipstick - Negative Protein Urine Dipstick - Negative Specific [place]an Urine Dipstick - 1.010 Urine Appearance Urine Dipstick - Clear Urine Color Urine Dipstick - Yellow Urobilinogen Urine Dipstick - Normal 0.2-1 EU/dl pH Urine Dipstick - 6 Allergies No Known Allergies Problems Ongoing - Any problem that you are currently receiving treatment for. BMI 29.0-29.9,adult Colon cancer screening Diabetes mellitus, type 2 Elevated PSA HTN (hypertension) Hydrocele Incisional hernia Umbilical hernia Education Materials Prostate Cancer Screening The prostate is a walnut-sized gland that is located below the bladder and in front of the rectum in males. The function of the prostate (prostate gland) is to add fluid to semen during ejaculation. Prostate cancer is the second most common type of cancer in men. A screening test for cancer is a test that is done before cancer symptoms start. Screening can help to identify cancer at an early stage, when the cancer can be treated more easily. The recommended prostate cancer screening test is a blood test called the prostate-specific antigen (PSA) test. PSA is a protein that is made in the prostate. As you age, your prostate naturally produces more PSA. Abnormally high PSA levels may be caused by: ? Prostate cancer. ? An enlarged prostate that is not caused by cancer (benign prostatic hyperplasia, BPH). This condition is very common in older men. ? A prostate gland infection (prostatitis). ? Medicines to assist with hair growth, such as finasteride. Depending on the PSA results, you may need more tests, such as: ? A physical exam to check the size of your prostate gland. ? Blood and imaging tests. ? A procedure to remove tissue samples from your prostate gland for testing (biopsy). Who should have screening? Screening recommendations vary based on age. ? If you are younger than age 40, screening is not recommended. ? If you are age 40?54 and you have no risk factors, screening is not recommended. ? If you are younger than age 55, ask your health care provider if you need screening if you have one of these risk factors: ? Being of -[place] descent. ? Having a family history of prostate cancer. ? If you are age 55?69, talk with your health care provider about your need for screening and how often screening should be done. ? If you are older than age 70, screening is not recommended. This is because the risks that screening can cause are greater than th (more content not included)... Normal [facility] Formson 09-06-2022 Forms [id number] .[id number]:127 Normal [facility] Patient Educationon 09-06-20 22 Patient Education Oncology Prostate Cancer Screening The prostate is a walnut-sized gland that is located below the bladder and in front of the rectum in males. The function of the prostate (prostate gland) is to add fluid to semen during ejaculation. Prostate cancer is the second most common type of cancer in men. A screening test for cancer is a test that is done before cancer symptoms start. Screening can help to identify cancer at an early stage, when the cancer can be treated more easily. The recommended prostate cancer screening test is a blood test called the prostate-specific antigen (PSA) test. PSA is a protein that is made in the prostate. As you age, your prostate naturally produces more PSA. Abnormally high PSA levels may be caused by: ? Prostate cancer. ? An enlarged prostate that is not caused by cancer (benign prostatic hyperplasia, BPH). This condition is very common in older men. ? A prostate gland infection (prostatitis). ? Medicines to assist with hair growth, such as finasteride. Depending on the PSA results, you may need more tests, such as: ? A physical exam to check the size of your prostate gland. ? Blood and imaging tests. ? A procedure to remove tissue samples from your prostate gland for testing (biopsy). Who should have screening? Screening recommendations vary based on age. ? If you are younger than age 40, screening is not recommended. ? If you are age 40?54 and you have no risk factors, screening is not recommended. ? If you are younger than age 55, ask your health care provider if you need screening if you have one of these risk factors: ? Being of -[place] descent. ? Having a family history of prostate cancer. ? If you are age 55?69, talk with your health care provider about your need for screening and how often screening should be done. ? If you are older than age 70, screening is not recommended. This is because the risks that screening can cause are greater than the benefits that it may provide (risks outweigh the benefits). If you are at high risk for prostate cancer, your health care provider may recommend that you have screenings more often or start screening at a younger age. You may be at high risk if you: ? Are older than age 55. ? Are -[place]. ? Have a father, brother, or uncle who has been diagnosed with prostate cancer. The risk may be higher if your family member's cancer occurred at an early age. What are the benefits of screening? There is a small chance that screening may lower your risk of dying from prostate cancer. The chance is small because prostate cancer is typically a slow-growing cancer, and most men with prostate cancer from a different cause. What are the risks of screening? The main risk of prostate cancer screening is diagnosing and treating prostate cancer that would never have caused any symptoms or problems (overdiagnosis and overtreatment). PSA screening cannot tell you if your PSA is high due to cancer or a different cause. A prostate biopsy is the only procedure to diagnose prostate cancer. Even the results of a biopsy may not tell you if your cancer needs to be treated. Slow-growing prostate cancer may not need any treatment other than monitoring, so diagnosing and treating it may cause unnecessary stress or other side effects. A prostate biopsy may also cause: ? Infection or fever. ? A false negative. This is a result that shows that you do not have prostate cancer when you actually do have prostate cancer. Questions to ask your health care provider ? When should I start prostate cancer screening? ? What is my risk for prostate cancer? ? How often do I need screening? ? What type of screening tests do I need? ? How do I get my test results? ? What do my results mean? ? Do I need treatment? Contact a health care provider if: ? You have difficulty urinating. ? You have pain when you urinate or ejaculate. ? You have blood in your urine or semen. ? You have pain in your back or in the area of your prostate. ? You have trouble getting or maintaining an erection (erectile dysfunction, ED). Summary ? Prostate cancer is a common type of cancer in men. The prostate (prostate gland) is located below the bladder and in front of the rectum. This gland adds fluid to semen during ejaculation. ? Prostate cancer screening may identify cancer at an early stage, when the cancer can be treated more easily. ? The prostate-specific antigen (PSA) test is the recommended screening test for prostate cancer. ? Discuss the risks and benefits of prostate cancer screening with your health care provider. If you are age 70 or older, screening is likely to lead to more risks than benefits (risks outweigh the benefits). This information is not intended to replace advice given to you by your health care provider. Make sure you discuss any questions you have with your health care provider. Document Released: 08/07/2018 Document R (more content not included)... Normal [facility] Physician Referralon 022 Physician Referral [id number] .[id number]:127 Normal [facility] Screenson 09-06-2022 Screens [id number] .[id number]:127 [facility] PSA, FREE AND TOTAL RATIOon 08-01-2022 % Free PSA 11.9 % Normal [facility] Comment on above: Result Comment: The table below lists the probability of prostate cancer for men with non-suspicious JULIA results and total PSA between 4 and 10 ng/mL, by patient age (Nawaf et al, ANNY 1998, 279:1542). % Free PSA 50-64 yr 65-75 yr 0.00-10.00% 56% 55% 10.01-15.00% 24% 35% 15.01-20.00% 17% 23% 20.01-25.00% 10% 20% >25.00% 5% 9% Please note: Catalona et al did not make specific recommendations regarding the use of percent free PSA for any other population of men. Performed By: #### P OCGLUC #### [facility] [address] [place] [address] Dr. Kaela Krause Prostate specific Ag [Mass/Vol] 3.6 ng/mL Normal 0.0-4.0 [facility] Comment on above: Result Comment: Betsey barragan ECLIA methodology. . According to the [place] [employer], Serum PSA should decrease and remain at undetectable levels after radical prostatectomy. The AUA defines biochemical recurrence as an initial PSA value 0.2 ng/mL or greater followed by a subsequent confirmatory PSA value 0.2 ng/mL or greater. Values obtained with different assay methods or kits cannot be used interchangeably. Results cannot be interpreted as absolute evidence of the presence or absence of malignant disease. Performed By: #### P OCGLUC #### [facility] [address] [place] [address] Dr. Kaela Krause PSA, Free 0.43 ng/mL Normal N/A [facility] Comment on above: Result Comment: Betsey barragan ECLIA methodology. Performed By: #### P OCGLUC #### [facility] [address] [place] [address] Dr. Kaela Krause INSULINon 07-31-2022 Insulin 10.0 uIU/mL Normal 2.6-24.9 [facility] Comment on above: Performed By: #### L ACT #### [facility] [address] [place] [address] Dr. Kaela Krause T4, T3U, FTI LABCORPon 07-31 Free Thyroxine Index 2.0 Normal 1.2-4.9 [facility] Comment on above: Performed By: #### T HYLC #### [facility] [address] [place] [address] Dr. Kaela Krause T3 Uptake 27 % Normal 24-39 [facility] Comment on above: Performed By: #### T HYLC #### [facility] [address] [place] [address] Dr. Kaela Krause T4 [Mass/Vol] 7.3 ug/dL Normal 4.5-12.0 [facility] Comment on above: Performed By: #### T HYLC #### [facility] [address] [place] [address] Dr. Kaela Krause CBC AUTO DIFFon 07-30-2022 BASO # 0.0 103/ul Normal 0.0-0.1 [facility] Comment on above: Performed By: #### L ACT #### [facility] [address] [place] [address] Dr. Kaela Krause Basophils/100 WBC (Bld) 0.6 % Normal 0.2-2.0 [facility] Comment on above: Performed By: #### L ACT #### [facility] [address] [place] [address] Dr. Kaela Krause EO # 0.2 103/ul Normal 0.0-0.7 [facility] Comment on above: Performed By: #### L ACT #### [facility] [address] [place] [address] Dr. Kaela Krause Eosinophils/100 WBC (Bld) 3.0 % Normal 0.9-7.0 [facility] Comment on above: Performed By: #### L ACT #### [facility] [address] [place] [address] Dr. Kaela Krause Erythrocyte distribution width (RBC) [Ratio] 14.0 % Normal 11.0-15.0 [facility] Comment on above: Performed By: #### L ACT #### [facility] [address] [place] [address] Dr. Kaela Krause Hematocrit (Bld) [Volume fraction] 43.6 % Normal 42.0-54.0 [facility] Comment on above: Performed By: #### L ACT #### [facility] [address] [place] [address] Dr. Kaela Krause Hemoglobin (Bld) [Mass/Vol] 14.0 g/dL Normal 14.0-18.0 [facility] Comment on above: Performed By: #### L ACT #### [facility] [address] [place] [address] Dr. Kaela Krause IG # 0.01 10e3/ul Normal 0.00-0.03 [facility] Comment on above: Performed By: #### L ACT #### [facility] [address] [place] [address] Dr. Kaela Krause IG % 0.2 % Normal 0.0-0.5 [facility] Comment on above: Performed By: #### L ACT #### [facility] [address] [place] [address] Dr. Kaela Krause LYMPH # 2.2 103/ul Normal 1.2-3.8 [facility] Comment on above: Performed By: #### L ACT #### [facility] [address] [place] [address] Dr. Kaela Krause Lymphocytes/100 WBC (Bld) 33.8 % Normal 20.5-60.0 [facility] Comment on above: Performed By: #### L ACT #### [facility] [address] [place] [address] Dr. Kaela Krause MANUAL DIFF REQ NO Normal [facility] Comment on above: Performed By: #### L ACT #### [facility] [address] [place] [address] Dr. Kaela Krause MCH (RBC) [Entitic mass] 27.7 pg Normal 25.9-34.0 [facility] Comment on above: Performed By: #### L ACT #### [facility] [address] [place] [address] Dr. Kaela Krause MCHC (RBC) [Mass/Vol] 32.1 g/dL Normal 29.9-35.2 [facility] Comment on above: Performed By: #### L ACT #### [facility] [address] [place] [address] Dr. Kaela Krause MCV (RBC) [Entitic vol] 86.2 fL Normal 80.0-94.0 [facility] Comment on above: Performed By: #### L ACT #### [facility] [address] [place] [address] Dr. Kaela Krause MONO # 0.5 103/ul Normal 0.3-0.8 [facility] Comment on above: Performed By: #### L ACT #### [facility] [address] [address] [address] Kaela Krause Monocytes/100 WBC (Bld) 8.1 % Normal 1.7-12.0 [facility] Comment on above: Performed By: #### L ACT #### [facility] [address] [address] [address] Kaela Krause NEUT # 3.6 103/ul Normal 1.4-6.5 [facility] Comment on above: Performed By: #### L ACT #### [facility] [address] [address] [address] Kaela Krause Neutrophils/100 WBC (Bld) 54.3 % Normal 43.0-75.0 [facility] Comment on above: Performed By: #### L ACT #### [facility] [address] [place] [address] Dr. Kaela Krause Platelet mean volume (Bld) [Entitic vol] 9.5 fL Normal 9.5-13.5 [facility] Comment on above: Performed By: #### L ACT #### [facility] [address] [address] [address] Kaela Krause PLT 366 103/ul Normal 150-450 [facility] Comment on above: Performed By: #### L ACT #### [facility] [address] [place] [address] Dr. Kaela Krause RBC 5.06 106/ul Normal 4.70-6.10 [facility] Comment on above: Performed By: #### L ACT #### [facility] [address] [address] [address] Kaela Krause WBC 6.6 103/ul Normal 4.0-11.0 [facility] Comment on above: Performed By: #### L ACT #### [facility] [address] [address] [address] Kaela Krause GLYCOHEMOGLOBIN A1Con 2021 ADA RECOMMENDATION SEE BELOW Normal [facility] Comment on above: Result Comment: ADA RECOMMENDED LIMIT 4.0 - 6.0 ADA THERAPEUTIC TARGET < 7.0 ACTION SUGGESTED > 7.0 Performed By: #### C MP #### [facility] [address] [address] [address] Kaela Krause Glucose [Mass/Vol] 123 mg/dL Normal [facility] Comment on above: Performed By: #### C MP #### [facility] [address] [address] [address] Kaela Krause HbA1c (Bld) [Mass fraction] 5.9 % Normal 4.5-6.2 [facility] Comment on above: Performed By: #### C MP #### [facility] [address] [place] [address] Dr. Kaela Krause LIPID PROFILEon 07-30-2022 CHOL-HDL RATIO NORM SEE BELOW Normal [facility] Comment on above: Result Comment: 3.3 - 4.4 LOW RISK 4.4 - 7.1 AVERAGE RISK 7.1 - 11.0 MODERATE RISK >11.0 HIGH RISK Performed By: #### C MP #### [facility] [address] [place] [address] Dr. Kaela Krause Cholesterol [Mass/Vol] 170 mg/dL Normal <=200 [facility] Comment on above: Performed By: #### C MP #### [facility] [address] [place] [address] Dr. Kaela Krause Cholesterol in HDL [Mass/Vol] 49 mg/dL Normal 40-60 [facility] Comment on above: Performed By: #### C MP #### [facility] [address] [address] [address] Kaela Krause Cholesterol in LDL [Mass/Vol] 106.4 mg/dL Normal [facility] Comment on above: Performed By: #### C MP #### [facility] [address] [place] [address] Dr. Kaela Krause Cholesterol.total/Chol esterol in HDL [Mass ratio] 3.5 {ratio} Normal [facility] Comment on above: Performed By: #### C MP #### [facility] [address] [place] [address] Dr. Kaela Krause HDL NORMAL > or = 60 mg/dl - LO W CARDIOVASCULAR RISK <40 mg/dl - HIGH CARDIOVASCULAR RISK Normal [facility] Comment on above: Performed By: #### C MP #### [facility] [address] [address] [address] Kaela Krause LDL CALC NORMAL SEE BELOW Normal [facility] Comment on above: Result Comment: <100 mg/dl OPTIMAL 100 - 129 mg/dl NEAR OR ABOVE OPTIMAL 130 - 159 mg/dl BORDERLINE HIGH 160 - 189 mg/dl HIGH >190 mg/dl VERY HIGH Performed By: #### C MP #### [facility] [address] [address] [address] Kaela Krause Triglyceride [Mass/Vol] 73 mg/dL Normal <=150 [facility] Comment on above: Performed By: #### C MP #### [facility] [address] [address] [address] Kaela Krause VLDL CALC 14.6 mg/dL Normal [facility] Comment on above: Performed By: #### C MP #### [facility] [address] [address] [address] Kaela Krause PROF 14(COMP METB)on 022 Albumin [Mass/Vol] 3.8 g/dL Normal 3.4-5.0 [facility] Comment on above: Performed By: #### P OCGLUC #### [facility] [address] [address] [address] Kaela Krause Albumin/Globulin [Mass ratio] 1.1 {ratio} Normal [facility] Comment on above: Performed By: #### P OCGLUC #### [facility] [address] [address] [address] Kaela Krause ALP [Catalytic activity/Vol] 50 U/L Normal 46-116 [facility] Comment on above: Performed By: #### P OCGLUC #### [facility] [address] [address] [address] Kaela Krause ALT [Catalytic activity/Vol] 24 U/L Normal 16-63 [facility] Comment on above: Performed By: #### P OCGLUC #### [facility] [address] [address] [address] Kaela Krause Anion gap [Moles/Vol] 11.9 mmol/L Normal [facility] Comment on above: Performed By: #### P OCGLUC #### [facility] [address] [address] [address] Kaela Krause AST [Catalytic activity/Vol] 12 U/L Critically low 15-37 [facility] Comment on above: Performed By: #### P OCGLUC #### [facility] [address] [address] [address] Kaela Krause Bilirubin [Mass/Vol] 0.4 mg/dL Normal 0.2-1.0 [facility] Comment on above: Performed By: #### P OCGLUC #### [facility] [address] [address] [address] Kaela Krause Calcium [Mass/Vol] 8.9 mg/dL Normal 8.5-10.1 [facility] Comment on above: Performed By: #### P OCGLUC #### [facility] [address] [address] [address] Kaela Krause Chloride [Moles/Vol] 107 mmol/L Normal 98-107 [facility] Comment on above: Performed By: #### P OCGLUC #### [facility] [address] [address] [address] Kaela Krause CO2 [Moles/Vol] 27.3 mmol/L Normal 21.0-32.0 [facility] Comment on above: Performed By: #### P OCGLUC #### [facility] [address] [address] [address] Kaela Krause Creatinine [Mass/Vol] 1.04 mg/dL Normal 0.70-1.30 [facility] Comment on above: Performed By: #### P OCGLUC #### [facility] [address] [address] [address] Kaela Krause EGFR-AF SYRIAN >60 Normal >=60 [facility] Comment on above: Performed By: #### P OCGLUC #### [facility] [address] [address] [address] Kaela Krause EGFR-NON AF SYRIAN >60 Normal >=60 [facility] Comment on above: Performed By: #### P OCGLUC #### [facility] [address] [address] [address] Kaela Krause Globulin (S) [Mass/Vol] 3.6 g/dL Normal [facility] Comment on above: Performed By: #### P OCGLUC #### [facility] [address] [address] [address] Kaela Krause Glucose [Mass/Vol] 113 mg/dL Critically high 74-106 [facility] Comment on above: Performed By: #### P OCGLUC #### [facility] [address] [address] [address] Kaela Krause Potassium [Moles/Vol] 4.2 mmol/L Normal 3.5-5.1 [facility] Comment on above: Performed By: #### P OCGLUC #### [facility] [address] [address] [address] Kaela Krause Protein [Mass/Vol] 7.4 g/dL Normal 6.4-8.2 [facility] Comment on above: Performed By: #### P OCGLUC #### [facility] [address] [place] [address] Dr. Kaela Krause Sodium [Moles/Vol] 142 mmol/L Normal 136-145 [facility] Comment on above: Performed By: #### P OCGLUC #### [facility] [address] [address] [address] Kaela Krause Urea nitrogen [Mass/Vol] 21.0 mg/dL Critically high 7.0-18.0 [facility] Comment on above: Performed By: #### P OCGLUC #### [facility] [address] [address] [address] Kaela Krause Urea nitrogen/Creatinine [Mass ratio] 20.2 mg/mg Normal [facility] Comment on above: Performed By: #### P OCGLUC #### [facility] [address] [address] [address] Kaela Krause TSHon 07-30-2022 TSH 3.249 uIU/mL Normal 0.358-3.740 [facility] Comment on above: Performed By: #### P OCGLUC #### [facility] [address] [address] [address] Kaela Krause Vital Signs Date Time Vital Sign Value Performing Clinician Faci lity 12-13-2022 11:06-0500 Blood Pressure Location Crhistiano MCCAIN [facility] 12-13-2022 11:06-0500 Diastolic blood pressure 74 mm[Hg] Christiano MCCAIN [facility] 12-13-2022 11:06-0500 Heart rate 80 /min Christiano MCCAIN [facility] 12-13-2022 11:06-0500 Respiratory rate 16 /min Christiano MCCAIN [facility] 12-13-2022 11:06-0500 Systolic blood pressure 128 mm[Hg] Christiano MCCAIN [facility] 09-06-2022 10:01-0400 Blood Pressure Location Christiano MCCAIN [facility] 09-06-2022 10:01-0400 Diastolic blood pressure 84 mm[Hg] Christiano MCCAIN [facility] 09-06-2022 10:01-0400 Heart rate 62 /min Christiano MCCAIN [facility] 09-06-2022 10:01-0400 Respiratory rate 16 /min Christiano MCCAIN [facility] 09-06-2022 10:01-0400 Systolic blood pressure 127 mm[Hg] Christiano MCCAIN [facility] Encounters Encounter Date Encounter Type Care Provider Facility Start: 12-13-2022 End: 12-14-2022 ambulatory MD Christiano MCCAIN Facility:[facility] Start: 12-13-2022 End: 12-13-2022 Patient encounter procedure Christiano MCCAIN [facility] Start: 11-28-2022 End: 12-01-2022 Evaluation and management of inpatient DR JAZMINE BRADFORD Facility: Start: 11-26-2022 End: 11-27-2022 ambulatory MD Christiano MCCAIN Facility:[facility] Start: 09-20-2022 End: 09-20-2022 ambulatory Jazmine Bradford Facility:[facility] Start: 09-20-2022 End: 09-20-2022 ambulatory MD Jazmine Bradford Work Phone: [facility] Work Phone: Start: 09-20-2022 End: 09-20-2022 Patient encounter procedure MD Jazmine Bradford Work Phone: [facility] Start: 09-09-2022 End: 09-10-[address] CHRISTIANO MCCAIN Facility:[facility] Start: 09-06-2022 End: 09-07-2022 ambulatory MD Christiano MCCAIN Facility:[facility] Start: 09-06-2022 End: 09-06-2022 Patient encounter procedure Christiano MCCAIN [facility] Start: 08-05-2022 ambulatory MD Christiano MCCAIN Fac ility:[facility] Start: 07-30-2022 End: 07-31-[address] JAZMINE BRADFORD Facility:[facility] Procedures Date Procedure Procedure Detail Performing Clinician Start: 11-26-2022 Transrectal biopsy o f prostate using ultrasound guidance Christiano MCCAIN Start: 07-30-[address] VIOLETA BRADFORD Comment on above: Performed By: #### C #### [facility] [address] [place] [address] Dr. Kaela Krause Start: 09-28-2019 Hernia repair Christiano NEWMAN Comment on above: incisional Start: 06-25-2019 Colonoscopy Christianoskye CUEVAS Arthroscopy of knee right Pa kofi MCCAIN Open repair of ingui nal hernia Christiano MCCAIN Repair of umbilical hernia P berhane MCCAIN Plan of Treatment Date Care Activity Detail Author Start: 09-20-2022 MR Prostate WO and W contrast IV [facility] Start: 09-20-2022 MR prostate wo/w con MR prostate wo/ w con [facility] Immunizations Immunization Date Immunization Notes Care Provider Fa alex 02-13-2021 SARS-CoV-2 (COVID-19 ) mRNA-1273 vaccine Christiano MCCAIN [facility] Comment on above: Result Comment: 202203: 65 01-16-2021 SARS-CoV-2 (COVID-19 ) mRNA-1273 vaccine Christiano MCCAIN [facility] 09-07-2020 influenza virus vaccine, unspecified formulation Christianoskye MCCAIN [facility] 11-10-2018 influenza virus vaccine, unspecified formulation Christianoskye MCCAIN [facility] Payers Date Payer Category Payer Self-pay [id number] 1959 Medicare [id number] 1959 Private Health Insurance 101 [id number] 1955 Unknown [id number] 2.16.84 [id number] 1955 Unknown [id number] 2.16.84 [id number] 1955 Unknown [id number] 2.16.84 [id number] 1955 Unknown [id number] 2.16.8 [id number] 1955 Unknown [id number] 2.16.8 [id number] 1955 Unknown [id number] 2.16.8 [id number] 1955 Unknown [id number] 2.16.8 [id number] Medicare Medicare [id number] Unknown [id number] 2.16.8 [id number] Social History Date Type Detail Facility Start: 08-18-2020 End: 09-06-2022 Tobacco smoking status Never smoked tobacco (finding) [facility] Sex Assigned At Male [facility] Start: 1955 Sex Assigned At Male F [facility] Functional Status Date Assessment Result Facility 12-13-2022 Functional Status N/A [facility] 09-06-2022 Functional Status N/A [facility] Hospital Discharge instructions 12-13-2022 Note Date & Type Note Facility 12-13-2022 Hospital Discharg e instructions Patient Education 12/13/2022 11:46:13 Prostate Cancer Screening Prostate Cancer Screening The prostate is a walnut-sized gland that is located below the bladder and in front of the rectum in males. The function of the prostate (prostate gland) is to add fluid to semen during ejaculation. Prostate cancer is the second most common type of cancer in men. A screening test for cancer is a test that is done before cancer symptoms start. Screening can help to identify cancer at an early stage, when the cancer can be treated more easily. The recommended prostate cancer screening test is a blood test called the prostate-specific antigen (PSA) test. PSA is a protein that is made in the prostate. As you age, your prostate naturally produces more PSA. Abnormally high PSA levels may be caused by: Prostate cancer. An enlarged prostate that is not caused by cancer (benign prostatic hyperplasia, BPH). This condition is very common in older men. A prostate gland infection (prostatitis). Medicines to assist with hair growth, such as finasteride. Depending on the PSA results, you may need more tests, such as: A physical exam to check the size of your prostate gland. Blood and imaging tests. A procedure to remove tissue samples from your prostate gland for testing (biopsy). Who should have screening? Screening recommendations vary based on age. If you are younger than age 40, screening is not recommended. If you are age 40 54 and you have no risk factors, screening is not recommended. If you are younger than age 55, ask your health care provider if you need screening if you have one of these risk factors: ?Being of -[place] descent. ?Having a family history of prostate cancer. If you are age 55 69, talk with your health care provider about your need for screening and how often screening should be done. If you are older than age 70, screening is not recommended. This is because the risks that screening can cause are greater than the benefits that it may provide (risks outweigh the benefits). If you are at high risk for prostate cancer, your health care provider may recommend that you have screenings more often or start screening at a younger age. You may be at high risk if you: Are older than age 55. Are -[place]. Have a father, brother, or uncle who has been diagnosed with prostate cancer. The risk may be higher if your family member's cancer occurred at an early age. What are the benefits of screening? There is a small chance that screening may lower your risk of dying from prostate cancer. The chance is small because prostate cancer is typically a slow-growing cancer, and most men with prostate cancer from a different cause. What are the risks of screening? The main risk of prostate cancer screening is diagnosing and treating prostate cancer that would never have caused any symptoms or problems (overdiagnosis and overtreatment). PSA screening cannot tell you if your PSA is high due to cancer or a different cause. A prostate biopsy is the only procedure to diagnose prostate cancer. Even the results of a biopsy may not tell you if your cancer needs to be treated. Slow-growing prostate cancer may not need any treatment other than monitoring, so diagnosing and treating it may cause unnecessary stress or other side effects. A prostate biopsy may also cause: Infection or fever. A false negative. This is a result that shows that you do not have prostate cancer when you actually do have prostate cancer. Questions to ask your health care provider When should I start prostate cancer screening? What is my risk for prostate cancer? How often do I need screening? What type of screening tests do I need? How do I get my test results? What do my results mean? Do I need treatment? Contact a health care provider if: You have difficulty urinating. You have pain when you urinate or ejaculate. You have blood in your urine or semen. You have pain in your back or in the area of your prostate. You have trouble getting or maintaining an erection (erectile dysfunction, ED). Summary Prostate cancer is a common type of cancer in men. The prostate (prostate gland) is located below the bladder and in front of the rectum. This gland adds fluid to semen during ejaculation. Prostate cancer screening may identify cancer at an early stage, when the cancer can be treated more easily. The prostate-specific antigen (PSA) test is the recommended screening test for prostate cancer. Discuss the risks and benefits of prostate cancer screening with your health care provider. If you are age 70 or older, screening is likely to lead to more risks than benefits (risks outweigh the benefits). This information is not intended to replace advice given to you by your health care provider. Make sure you discuss any questions you have with your health care provider. Document Released: 08/07/2018 Document Revised: 10/09/2018 Document Reviewed: 08/07/2018 [employer] Patient Education 2020 [employer]. Follow Up Care 11/13/2022 13:46:12 With:KALYN CHAKRABORTY, Christiano Thornton, URL Address: [address] [place] [address]- When: Unknown [facility] History and physical note 11-27-2022 Note Date & Type Note Facility 11-27-2022 Note [id number] [facility] Clinical Note 09-06-2022 Note Date & Type Note Facility 09-06-2022 Note HPI Staff Referral for elevated PSA from Dr. Bradford's office. Most current PSA done 07/30/22 is 4.76. Dysuria: no Incomplete bladder emptying: no Hematuria: no Frequency: no Urgency: less than 1 in 5x per IPSS Nocturia: 1-2x Stream: good stream no straining Leaking: no Post void dripping: no Wearing pads/ Depends: no Urge incontinence: no Stress incontinence: no Incontinence without Sensory Awareness: no Abdominal pain: no Flank pain: no Sexual complaints: no History of Present Illness Tests reviewed: reviewed UA and referral records. I have reviewed the previous health record information and history for this patient from Dr. Mccain. I have reviewed and verified the staff HPI to be accurate for this encounter. There have been no associated fever, chills, flank pain, or blood in the urine. Denies any urinary infections since last encounter. Review of Systems PHQ Score Initial Depression Screen Score: 0 ROS - Provider Constitutional: denies weight loss, denies hot flashes. Eyes: denies eye problems. Gastrointestinal: denies nausea, denies vomiting. Cardiovascular: denies chest pain or angina. Integumentary: no dryness Musculoskeletal: denies musculoskeletal symptoms. ENMT: denies otolaryngeal symptoms. Respiratory: no shortness of breath. Heme/Lymph: denies easy bleeding tendency, denies easy bruising tendency. Psychiatric: no confusion, no anxiety. Genitourinary: denies dysuria, denies hematuria, denies discharge, denies urinary frequency, denies urinary hesitancy, denies nocturia, denies incontinence, denies genital sores, denies decreased libido, and denies erectile dysfunction. Physical Exam Vitals & Measurements HR: 62(Peripheral) RR: 16 BP: 127/84 HT: 70 in HT: 179 cm WT: 86 kg WT: 189.2 lb BMI: 26.84 General Appearance: alert, no distress, well nourished, well developed male. Head: normocephalic . Eyes: normal orbit and globe. ENMT: normal examination of external ears. Chest: Lungs CTA, respirations non labored. Cardiovascular: regular rate and rhythm. Abdomen: soft, non distended, no tenderness, no mass or organomegaly, hernia found on the right side. Genitourinary: large Rt. sided hydrocele, normal testes, normal urethra, normal epididymis, normal vas deferens/spermatic cord. Flank Pain: none. Bladder: nonpalpable. Penis: normal shaft, normal glans. Prostate: abnormal prostate, estimated weight 45 gms, right sided nodularity found, base to apex. Lymph Nodes: unremarkable palpation of the cervical area. Skin: warm, dry, no bruising. Psychiatric: cooperative, affect appropriate for age, normal judgement, euthymic mood. Assessment/Plan 1. Elevated PSA (R97.20: Elevated prostate specific antigen [PSA]) New patient referred by Dr. Bradford for Elevated PSA. Reports he has his PSA & JULIA checked annually and levels have always been within normal limits. Denies family hx of prostate cancer. No urinary complaints, IPSS (3). Reports he is voiding more frequently than usual but not bothersome. JULIA today 45gms, Rt. sided nodularity found, base to apex. PSA 07/30/22 - 3.6 & 11.9%, simple PSA 4.76 10/08/21 - 3.61 08/03/20 - 3.15 He has an elevated PSA, which could indicate prostate cancer, prostate infection, prostate inflammation without infection, prostate manipulation, or benign prostate enlargement (BPH). The importance of the rate of PSA rise has also been discussed. The options for management have been discussed, including prostate biopsy versus close monitoring of the PSA over time. Mentioned due to the rise of PSA we will order MRI of prostate and a biopsy to be followed. Type of bx based off of MRI results. Pt. agrees with plan. All questions/concerns were discussed. Pt. to call the office if heencounters any issues prior. Pt. acknowledges understanding. 2. Hydrocele (N43.3: Hydrocele, unspecified) Large, Rt. sided hydrocele found on today's exam. Pt. reports this has been enlarged for years. Exam negative for hernia's. Will order scrotal US. Follow-up With When Contact Information Christiano MCCAIN MD, URL [address] [place] [address]- Additional Instructions: MRI & scrotal US Patient Education Prostate Cancer Screening I, Malika Laird, personally scribed for Dr. Mccain on 09/06/2022 10:58:57. . Documentation recorded by the ilianaibMalika barragan, accurately reflects the services(s) I performed and decisions made by me. Authenticated by Dr. Mccain on 09/06/2022 11:00:38. Problem List/Past Medical History Ongoing BMI 29.0-29.9,adult Colon cancer screening Diabetes mellitus, type 2 Elevated PSA HTN (hypertension) Hydrocele Incisional hernia Umbilical hernia Historical No qualifying data Procedure/Surgical History Hernia repair (09/28/2019), Colonoscopy (06/25/2019), Arthroscopy of knee right, Open repair of inguinal hernia, Repair of um (more content not included)... [facility] Comment on above: Result Comment: Elec tronically Signed By: Christiano MCCAIN MD\.br\Date and Time Signed: 09/06/22 11:00 EDT\.br\Electronically Co-Signed By: Malika Laird\.br\Date and Time Co-Signed: 09/06/22 10:59 EDT Hospital Discharge instructions 09-06-2022 Note Date & Type Note Facility 09-06-2022 Hospital Discharg e instructions Patient Education 09/06/2022 10:39:47 Prostate Cancer Screening Prostate Cancer Screening The prostate is a walnut-sized gland that is located below the bladder and in front of the rectum in males. The function of the prostate (prostate gland) is to add fluid to semen during ejaculation. Prostate cancer is the second most common type of cancer in men. A screening test for cancer is a test that is done before cancer symptoms start. Screening can help to identify cancer at an early stage, when the cancer can be treated more easily. The recommended prostate cancer screening test is a blood test called the prostate-specific antigen (PSA) test. PSA is a protein that is made in the prostate. As you age, your prostate naturally produces more PSA. Abnormally high PSA levels may be caused by: Prostate cancer. An enlarged prostate that is not caused by cancer (benign prostatic hyperplasia, BPH). This condition is very common in older men. A prostate gland infection (prostatitis). Medicines to assist with hair growth, such as finasteride. Depending on the PSA results, you may need more tests, such as: A physical exam to check the size of your prostate gland. Blood and imaging tests. A procedure to remove tissue samples from your prostate gland for testing (biopsy). Who should have screening? Screening recommendations vary based on age. If you are younger than age 40, screening is not recommended. If you are age 40 54 and you have no risk factors, screening is not recommended. If you are younger than age 55, ask your health care provider if you need screening if you have one of these risk factors: ?Being of -[place] descent. ?Having a family history of prostate cancer. If you are age 55 69, talk with your health care provider about your need for screening and how often screening should be done. If you are older than age 70, screening is not recommended. This is because the risks that screening can cause are greater than the benefits that it may provide (risks outweigh the benefits). If you are at high risk for prostate cancer, your health care provider may recommend that you have screenings more often or start screening at a younger age. You may be at high risk if you: Are older than age 55. Are -[place]. Have a father, brother, or uncle who has been diagnosed with prostate cancer. The risk may be higher if your family member's cancer occurred at an early age. What are the benefits of screening? There is a small chance that screening may lower your risk of dying from prostate cancer. The chance is small because prostate cancer is typically a slow-growing cancer, and most men with prostate cancer from a different cause. What are the risks of screening? The main risk of prostate cancer screening is diagnosing and treating prostate cancer that would never have caused any symptoms or problems (overdiagnosis and overtreatment). PSA screening cannot tell you if your PSA is high due to cancer or a different cause. A prostate biopsy is the only procedure to diagnose prostate cancer. Even the results of a biopsy may not tell you if your cancer needs to be treated. Slow-growing prostate cancer may not need any treatment other than monitoring, so diagnosing and treating it may cause unnecessary stress or other side effects. A prostate biopsy may also cause: Infection or fever. A false negative. This is a result that shows that you do not have prostate cancer when you actually do have prostate cancer. Questions to ask your health care provider When should I start prostate cancer screening? What is my risk for prostate cancer? How often do I need screening? What type of screening tests do I need? How do I get my test results? What do my results mean? Do I need treatment? Contact a health care provider if: You have difficulty urinating. You have pain when you urinate or ejaculate. You have blood in your urine or semen. You have pain in your back or in the area of your prostate. You have trouble getting or maintaining an erection (erectile dysfunction, ED). Summary Prostate cancer is a common type of cancer in men. The prostate (prostate gland) is located below the bladder and in front of the rectum. This gland adds fluid to semen during ejaculation. Prostate cancer screening may identify cancer at an early stage, when the cancer can be treated more easily. The prostate-specific antigen (PSA) test is the recommended screening test for prostate cancer. Discuss the risks and benefits of prostate cancer screening with your health care provider. If you are age 70 or older, screening is likely to lead to more risks than benefits (risks outweigh the benefits). This information is not intended to replace advice given to you by your health care provider. Make sure you discuss any questions you have with your health care provider. Document Released: 08/07/2018 Document Revised: 10/09/2018 Document Reviewed: 08/07/2018 [employer] Patient Education 2020 [employer]. Follow Up Care 08/05/2022 14:49:20 With:KALYN CHAKRABORTY, Christiano Thornton, URL Address: [address] [place] [address]- When: Unknown [facility] Evaluation + Plan note Note Date & Type Note Facility Evaluation + Plan note No data available for this section [facility] Evaluation note Note Date & Type Note Facility Evaluation note [facility] Progress note Note Date & Type Note Facility Progress note No data available for this section [facility] Chief Complaint and Reason for Visit Chief Complaint R97.20 Family History No Family History Records Found Relationship Condition Age at Onset Recorded Date/T roger Not Specified Family history of myocardial infarction Unknown father Family history of myocardial infarction U nknown brother Diabetes mellitus Unknown Advance Directives No Advanced Directives Records Found Advance Directive Response Recorded Date/ Time Advance Directives No August 15, 2020 1:13pm Summary Purpose Additional Source Comments Patient Care team informatio n (unrecognized section and content) Team Status: Inactive Member Role Status Dates Jazmine Bradford MD Primary Care Provider Active Christiano Mccain MD Attending Provider Active Team Status: Active Member Role Status Dates Jazmine Bradford MD Primary Care Provider Active Goals (unrecognized section and content) Goals may be documented in a n alternate section (unrecognized sect ion and content) No Status Records FoundNo Status Records FoundNo Status Records Found INFORMATION SOURCE (unrecogn ized section and content) DATE CREATED AUTHOR 10/01/2022 [facility] DATE CREATED AUTHOR AUTHOR'S ORGANIZ ATION 12/06/[address] [facility] DATE CREATED AUTHOR AUTHOR'S ORGANIZ ATION 12/17/2022 [facility] FOR RECORDS PERTAINING TO PATIENTS WHO ARE OR HAVE BEEN ENROLLED IN A CHEMICAL DEPENDENCY/SUBSTANCEABUSE PROGRAM, SOME INFORMATION MAY BE OMITTED. This clinical summary was aggregated from multiple sources. Caution should be exercised in using it in the provision of clinical care. This summary normalizes information from multiple sources, and as a consequence, information in this document may materially change the coding, format and clinical context of patient data. In addition, data may be omitted in some cases. CLINICAL DECISIONS SHOULD BE BASED ON THE PRIMARY CLINICAL RECORDS. [employer] provides no warranty or guarantee of the accuracy or completeness of information in this document.
[2024-08-17] MEDS: ONDANSETRON PF 4 MG/2 ML VIAL IV (08:57)
[2024-08-17] MEDS: MORPHINE SULFATE 4 MG/ML VIAL IV (08:57)
[2024-08-17] MEDS: KETOROLAC TROMETHAMINE 30 MG/ML VIAL 15 MG IVP (08:57)
[2024-08-17 09:01] LABS: Basophils Percent Auto 0.5 % (0.2-2.0); Eosinophils Absolute Auto 0.2 10^3/uL (0.0-0.7); Eosinophils Percent Auto 2.9 % (0.9-7.0); Hematocrit 43.8 % (42.0-54.0); Hemoglobin 14.2 g/dL (14.0-18.0); Immature Granulocytes Abs Auto 0.03 10^3/uL (0.00-0.03); Immature Granulocytes Pct Auto 0.4 % (0.0-0.5); Lymphocytes Percent Auto 23.8 % (20.5-60.0); Mean Corpuscular HGB Conc 32.4 g/dL (29.9-35.2); Mean Corpuscular Hemoglobin 28.2 pg (25.9-34.0); Mean Corpuscular Volume 86.9 fL (80.0-94.0); Monocytes Absolute Auto 0.7 10^3/uL (0.3-0.8); Monocytes Percent Auto 7.9 % (1.7-12.0); Neutrophils Absolute Auto 5.3 10^3/uL (1.4-6.5); Neutrophils Percent Auto 64.5 % (43.0-75.0); Platelet Count 324 10^3/uL (150-450); Red Blood Count 5.04 10^6/uL (4.70-6.10); Red Cell Distribution Width 14.4 % (11.0-15.0); White Blood Count 8.3 10^3/uL (4.0-11.0)
[2024-08-17 09:02] LABS: Bilirubin Urine NEGATIVE (NEGATIVE); Blood Urine LARGE (NEGATIVE); Clarity Urine CLEAR (CLEAR); Glucose Urine UA NEGATIVE (NEGATIVE); Ketones Urine TRACE mg/dL (NEGATIVE); Leukocyte Esterase Urine TRACE (NEGATIVE); Nitrite Urine NEGATIVE (NEGATIVE); Protein Urine 30 mg/dL (NEG/TRACE); Specific Gravity Urine >=1.030 (1.005-1.025); Urobilinogen Urine 0.2 EU/dL (0.2-1.0)
[2024-08-17 09:05] LABS: Anion Gap 11.5; BUN Creatinine Ratio 13.7; Calcium 8.9 mg/dL (8.5-10.1); Carbon Dioxide 27.3 mmol/L (21.0-32.0); Chloride 106 mmol/L (98-107); Estimated GFR (African America >60 (>=60 mL/min/1.73m^2); Estimated GFR (Non-African Ame 54 (>=60 mL/min/1.73m^2); Glucose 164 mg/dL (74-106); Potassium 3.8 mmol/L (3.5-5.1); Sodium 141 mmol/L (136-145)
[2024-08-17 09:06] LABS: Color Urine DK YELLOW (YELLOW); Urine Microscopic Indicated YES
[2024-08-17 09:07] LABS: Mucus Urine TRACE (NONE SEEN); RBC Urine 75-100 #/HPF (0-2)
[2024-08-17 09:08] LABS: Bacteria Urine TRACE #/HPF (NONE SEEN); Calcium Oxalate Crystals Urine RARE; Cast Seen? SEEN #/LPF (NONE SEEN); Crystals Seen? Seen #/HPF (None Seen); Hyaline Casts Urine RARE; Squamous Epithelial Cell Urine RARE #/LPF (NONE/RARE)
== END 2024-08-17 11:08 | disposition home or self-care (01) ==
PROVIDERS: Emergency Provider Student in an Organized Health Care Education/Training Program; PCP Family Medicine
DX: N20.0 Calculus of kidney (principal); R10.9 Unspecified abdominal pain; E11.9 Type 2 diabetes mellitus without complications; I10 Essential (primary) hypertension; Z79.84 Long term (current) use of oral hypoglycemic drugs
CPT/HCPCS: 36415; 74176; 80048; 81001; 85025; 96374; 96375; 99284; J1885; J2270; J2405

== ENCOUNTER 2024-08-20 10:40 | Outpatient (OUT) | payer OTHER, SELFPAY ==
--- OUTSIDE RECORDS SUMMARY | 2024-08-20 10:47 | XMS_ITS | CCD ---
Author Organization [facility] Care Team Providers Care Credit Collections Analyst Name Role Phone Jazmine Bradford Primary Care Physician [phone] MD Jazmine Bradford Primary Care Provider [phone] MD Christiano Mccain Attending Provider Jazmine Bradford Primary Care Unavailable Christiano Mccain [...] Onset: 12-05-2022 Episodic Other aftercare (1 source) intermediate designer (current) use of aspirin; Translations: [SENIOR LIVING CURRENT USE OF ASPIRIN] Onset: 12-05-2022 Episodic Other aftercare (1 source) intermediate designer (current) use of oral hypoglycemic drugs; Translations: [STAGE ELECTRICIAN USE ORAL HYPOGLYCEMIC DX] Onset: 12-05-2022 Episodic Other aftercare (1 source) Other mcfp (current) drug therapy; Translations: [OTH STAGE ELECTRICIAN CURRENT DRUG THERAPY] Onset: 12-05-2022 Episodic Other [...] Range Facility ED Note-Physicianon 12-16-19 ED Note-Physician [id number] .00CD:127 Normal [facility] Lab Reportson 12-16-2022 Lab Reports [id number] .[id number]:127 Normal [facility] RAD - CT Reporton 12-16-2022 RAD - CT Report [id number] .00CD:127 Normal [facility] Ambulatory Visit Summaryon 0 12-13-2022 Ambulatory Visit [...] with KALYN CHAKRABORTY, MACEY Nash When: Where: [address] [place] [id number]- Medications What How Much When Instructions Unchanged [...] of these risk factors: ? Being of -[place] descent. ? Having a family history of [...] Are older than age 55. ? Are -Guinean. ? Have a father, brother, or uncle who has been diagnosed with prostate cancer. The risk may be higher if your family member's cancer occurred at an early age. What are th (more content not included)... Normal [facility] Patient Educationon 12-13-19 Patient Education Oncology Prostate [...] of these risk factors: ? Being of -[place]ine[place] descent. ? Having a family history of [...] Are older than age 55. ? Are -Guinean. ? Have a father, brother, or uncle [...] R (more content not included)... Normal [facility] Urology Office/Clinic Noteon 12-13-2022 Urology Office/Clinic Note Chief Complaint Review Prostate Path Report HPI Staff S/P TRUS /Bx done 11/26/22. Pathology report is available to review. MRI done 10/01/22. Scrotal US done 09/09/22 Pt states he went to [facility] the day following TRUS/Bx due to increased [...] the patient could understand. Pt presented to [facility] ER on 11/27/22 due to fever. Pt was admitted for 4 days due to sepsis. Pt shares he is almost done with abx, started on Cefdinir. Reports he is doing much better now. 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 Mccain on 12/13/2022 11:53:39. . Documentation recorded by the scribeMalika, accurately reflects the services(s) I performed and decisions made by me. Authenticated by Dr. Mccain on 12/13/2022 11:57:12. Problem List/Past Medical History Ongo (more content not included)... Normal [facility] Comment on above: Result Comment: Elec tronically Signed By: Christiano MCCAIN MD\.br\Date and Time Signed: 12/13/22 11:57 EST\.br\Electronically Co-Signed By: Malika Laird.br\Date and Time Co-Signed: 12/13/22 11:55 EST IntraOperative Documentson 0 12-06-2022 [facility] Documents [id number]# 1.00CD:127 [facility] Coding Summary.on 12-03-2022 Coding Summary. CD:[id number] G h0bWw+PGhlYWQ+IN6AHAO yI57ftFWemD2ON3kRJD9I HTPTIWBFQI1FBS4aiMY5U WeyB2JseyNt VsrjrOKsIN43SKa7KNL8g UdaKVctlR2ieHSpA6j4Nn IxJO19wV91BDtvZNEeJjR 3LjZpbjsgbWFy S0fbVpJnqQYjWgd+PHRhY mxlIHdpZHRoPScxMDAlJy RwcOdjEO7bZo2cCLZoQSD vbGxhcHNlOiBj y2uoTKRjBJpyOY3wpMdsM 0IthIN7HLPxo5q2Xk20sI I+YMSvIAC1kPiaRPscl62 9IoKwh2pkYOI1 pJZtQKtsCLI8K72ow2T4G IBdQZGlLOO4eQL4wI2akX rdpkqpG3TxaRJiFnF0EPC 9xNNcxM9ewMlg nlcjiN7zTlv+W29MBJ2WY OIREZ2NJpy2D5ZqHdjgtA I+QS50PQCrPD88qHPkgNE rr0yajOy6WmQt MTJcGBF7xEhgSOxvh8UrX OSjI22dwPJqg6X8IKBbbS kuxLUhMfVoxHT4yQ5uZTk rgsttk8gqwkbb Asoyl4qbub66qD91Y69dP TgnWGEtHUZ9XMIdWKFgkF fmjt8roD3oQm6+RHvcv2s vg8bghTp7IcZt PHFbtrYrdIkvNEU1y2GmP n46A7VjqTyne0OoSxm6ez 35iOAbm9R9tNC5PYzhFYZ tvR0mXOblAlC8 LADdQbThlD05pNBeYPadH c1eoIcebMfsVY1wFKYesm yiVIFvrX5zZKEltOVqgIw gAQ7cHOIlzais h222JzGnRZW9TGBdrXUtS 0UaeD4tHbYyMNPdXTKjW9 ZeyNEhGDcbN011JWojWlF 0ALCbgyXsU8Ly WPZyeFnoMaY3i5Y4Am7Bv 9YyzdfeNCB3BExgMEGtMq R5DyCfZzM3G2UeAeh6ICF lzRerJU0tH5Fh ONPapuqhrdscmBB2UBCxF MAlwN23cNBdBRijTd6xu5 L2z049SSZoFVRfnR66Ps8 udDogMTBwdCBU hL6holyia8zdvyyrFqGbF UXpJFo2VCe8FGMznSzkEr ShWHM1ArM3WVP9nBCpsC2 keXmpdikhcO8d Oyc+Y48ugW9wLMM2JEQ3o jxuXMYkbuHhAT69LE22R4 RyPjwvdGFibGU+PGRpdiB eiTheRP9mMfOq k1jvc1UgBVilH1QbRKSqB GehVml6BBAdCXP6fCP3rF 0uFCRmRNevt9I0oMY7B3L cmsMqtg5fy5qq YYUbSNoeE70loKZxt3K3O KRteZX5ARDnaNgvLcMumJ 93Oyc+GRTiqJbpm6LkCnp sf6ggo6ljeAi7 YtMrZMTlunXtuQvvNGJ2e 6OcMy23D64bZAeiLHMyTL KsTBHdLKVmnWxtxp2nxS3 wIi8+PGNvbCB3 aQR4vJ6fLLEbHbF1OMavR 516FaEsmSQvFrlbp2yts1 uswVy2TlAeUDSzjyBamJw mVFK2a1QvWb27 L29jWVglNHMuPGRzNVNsG GRfrTgrky4xlL8wPi7+PC 5zc0uvvl99vQ74uKQ+PHR aPML6gGzbRRru YZOzvI9kNWhbAdJ2FRQvQ dQkiD22xFZwLAqdVp5xqO ifbStgBR1aGKMcemcsx32 2LjAcc1eeOONx cKIdKSlqOOG1D64ij2C6M WWyLDHnKMK1nDT6fA4pcF lnbjogbGVmdDsgdmVydGl lTIbgCEreM860 IHRvcDsnPlBhdGllbnQgT hTgDFf1V6RqDnu5ZUDoyE twIC8jgXGkQBsgJb5eoMf glGnoAK4qREOo uczkg444OzIxo3hwTBBis PHwWKwiQRD3H95cj6S5WS NfCXVoEHX1gDU3fL1xqIa nbjogbGVmdDsg exCjlEggNLqbVWxsU178O HRvcDsnPkJpcnRoIERhdG G1UX49YX79hCWlp6L7bLJ 3R7CsWEWwbxfg unhveCX5RKTeEMGdnX43D n5vlOcvOf1uTBFwVMN2UV UlcEKnG4ZanS4zWrVqZJQ hJCSyC5HtaPHi WZxjP998DSmsXrD2WMBfo iBaG3CuJPIjgHvyIuV3w5 X9Pq1FA7Z9KJ62PY15lQZ mk5A2dHV3G7Di KJGyrepqzdfaoIN8VMHqN GBusE71Xz6vgQoaNe9nKO SqRSX4SQFuoBBrG0WooO5 yOiAjMDAwMDAw I0YtnQQhJFulQ697IUcvJ pX2AMFpxyHjU2PqJQYyjA euDiM2x5R6Mt4CLGh7FL0 2GL25uAJag7M2 oUV2B6DsQRKlgihzdvucv ZT7XXOzPQDvjZ06Xx1osR syIs7aILKoAMD8ABCuwHW zG1FuvS5uCaDj ATMmREKkG4XktTIiVQpmZ 823ZIwmZcM5JACvzeUfR8 PvULNlqTqnRvD0r5C2Dc2 PZBDdAO74UEE3 xRO4NL49MY91R5FuPrhlz GFibGU+PHRhYmxlIHdpZH RoPScxMDAlJyBzdHlsZT0 aJu4iYTKdEYUb cWwkmMUkVhOnh4aoVEArR AnvDW4ofNskB0KtuGS8SX Wwk1x8Mt46L82lJ4RupFF +SZHwjAT3tOC7 aW8iUnNyDdE8LMbvN251T zRyzKRvEscqb8jpm0cwvD q3AfJ3AKUsxqGhvHsiZXH 9s6EiWv34L30p IHdpZHRoPSIxNSUiIHZhb Shlvv2prB6yGr9+PGNvbC Q9pGK2qA3vFeGlHzH2LGy oS290FwMshMZd Xwrqm7vvc7tiiFv8PaMlC KDtnhNtmXvjTAX6y2WxBr 53R4IphDdwy0GrXbc4rz9 7lEKtz3I5gPX9 A5DgLGHxazulnGPapHwgH H7iDSZuhmimAYOxzY0cDA YtO8g9XbSlRdM8TZgyD8X dezL5CWPgkQWc BOelSRI2F64lf7X7FWVtF SMdVZB8dVC9lZ8ikNkxha ogbGVmdDsgdmVydGljYWw cTEtcJ462SBRw yHhzUHZwoF7vZZRujZLol DnhFA0nVHMezuqbVi4HMV IgSlIsIFBISUxMSVAgTDw vdGQ+PHRkIHN0 iRqaUYdqXYZycG9kYBNiX 8o2ChPvFiK7DHdnL9FhEO RbnekyFz61lQ0iFbPeJfB 3FCnqI5PgbhX2 FBHxpQFtGIecZMY6V85dh 9U9INGxNZIaTGA2kVA8bL 1hbGlnbjogbGVmdDsgdmV ydGljYWwtYWxp E060GXHyqWzeBsC3OlO1R cP3LKI9T4RwJwz7OOIgxJ akKZ5swPCwPGjhMw1edTl ssJajRA7uNBWe wgylJMHqwR6rRCPioFAub KsgGV3rYHUhmnroy704Gs YfMTZ0EHXhjXNbZ3LgwZ8 yOiAjMDAwMDAw P3YrcFLjTQzgD408REcsL jM1VWYdezFmS5ZfRZUijM qvStI8f7F3Xy74IiEYWXG yczwvdGQ+PHRk MVK0nVmiZUhdVTMkvS1nW WApN7j1AvIxEqT6FDoxY4 TpDPCqgvsqZb10eL1wHuF oYxL6WCjuI0Ji uyU9HPDoiFAmMAjoQGA1O 14ka1Y2POKkXAHiBAK4vR P0aS8yfWncazdwiTBteKn gdmVydGljYWwt TSrwO321FTEwbWfxJd7af SS9Q3CxGtn6QFJtcAqjJX 3lzHTkSOuqAo5seJtsfUs kDT1kMVBqkuhs LMWvbH5sZIXevCHsiZvmC O7tYTAxqgoce574VvTkSF S4WMTezSRmO6DbtL2nTbQ fWZDzFAZdE0Vt fCGiOMcgS858OEqoUeA6T STejjMqS0OrECCdhFteYm L8f4C8Si5KbFYtSCWsCA5 9NE15YD74O2Xd PjwvdGFibGU+PHRhYmxlI HdpZHRoPScxMDAlJyBzdH qhSA4aXh2tJFVrJQPryZu xvAVcGxFkb7sr GMKtMZsjQM6tqNapU5Nyo GE5NBVjd4n8Zo81S09hL3 JvdXA+JDRqdMJ0pZK5xF4 xXkBkWcO5PVul S793DjLurQQfQjlpo6eiy 7wyzHe0BkQqCOJqifXhbK mrBDL7b8XiEq28L09tFHk pZHRoPSIyMCUi KNNfmMenzn4gpD7iRu4+P SAfdUN8zOM6eR4tEdTjCj M0FPekO019WbVsrDUeYvl rT38kO8WmeNZ+ ZEOcFat9XSXytDdiYA3mn RCoJHidTj7aBFF6QrJtZh ZvEMvrS2SmWNJybbfkqri wpFA2OXLzPBBd yI00Xt8eaBrdEj2bTOOcR JR2TUEkxXLhE8XkwK6iYb YrXIPdEGEfF5HjqLFiHNk pS984ZUkuXrS3 LPOmfvUdM1HrXJAgcPzgJ uE9f7Z3Uq3RvRktaYFqKF 9wGbOqMQh3B3KfStz8VCI ioMbuTZ7onBTu MWztDe2ybCsxjFghTI5nA LOvjgguk928IzWda9kuLP DagJLdPOqmPKT4K52ts8O 8VGUwQJOoPSK7 xOS6dN3qrRgqxixwhWDqx DsgdmVydGljYWwtYWxpZ2 89FLTscBdzYvFNGkv1I8V qSfe9KAWeaScq JH7lfGYiZUqiNe0uiZbiv TszUB6fVGYtddnxk830Ba Yzi9usJYXudLKkPBhhEMB 4S73iq3H2LMPz EROgEXO2zAI2bG4neQvum jogbGVmdDsgdmVydGljYW bsRGynO042NCZmcFnbMp8 EKfx4Z5XwQea3 DHCbgGfaLE3npGKuYLhqI o5brIztsSycFZ3yWHTxvo rbz265QqLab0xuOUMlpVT sCIccWRJ9T04o p9W6FSNoVIJcXUK5tEG1q W0sqGglxahrbNYoiYkbjx SyxChvBHawJSchD181MXG vcDsnPlBheWVy OjwvdGQ+DL06pg42C4LpW uneDcq6YMMaTNA4fVX6vE 3gBSIfHBvze8L4vIF2W6Z uimVheg1df2vy YXBz (more content not included)... Normal [facility] Prostate Histology ([facility]) on 12-02-2022 Prostate Histology Diagnosis Info Invalid Interpretation Code [facility] Comment on above: Result Comment: A:Pr ostate,Left Lateral Base:Needle Biopsy Interpretation - - Benign prostatic tissue. MicroScopic Description - B:Prostate,Left Lateral Mid:Needle Biopsy Interpretation - - Benign prostatic tissue. MicroScopic Description - C:Prostate,Left Lateral Crestone:Needle Biopsy Interpretation - - Benign prostatic tissue. MicroScopic Description - D:Prostate,Left Base:Needle Biopsy Interpretation - - Benign prostatic tissue. MicroScopic Description - E:Prostate,Left Mid:Needle Biopsy Interpretation - - Benign prostatic tissue. MicroScopic Description - F:Prostate,Left Crestone:Needle Biopsy Interpretation - - Benign prostatic tissue. MicroScopic Description - G:Prostate,Right Base:Needle Biopsy Interpretation - - Benign prostatic tissue. MicroScopic Description - H:Prostate,Right Mid:Needle Biopsy Interpretation - - Benign prostatic tissue. MicroScopic Description - I:Prostate,Right Crestone:Needle Biopsy Interpretation - - Benign prostatic tissue. MicroScopic Description - J:Prostate,Right Lateral Base:Needle Biopsy Interpretation - - Benign prostatic tissue. MicroScopic Description - K:Prostate,Right Lateral Mid:Needle Biopsy Interpretation - - Benign prostatic tissue. MicroScopic Description - L:Prostate,Right Lateral Crestone:Needle Biopsy Interpretation - - Benign prostatic tissue. [...] on: 12/02/2022 13:28:16 Performed By: #### 1 [id number] ####[facility] [id number] [place] [address] CBC AUTO DIFFon 12-01-2022 BASO # 0.0 103/ul Normal 0.0-0.1 [facility] Comment on above: Performed By: #### C MP #### [facility] [address] [place] [address] Dr. Kaela Krause Basophils/100 WBC (Bld) 0.5 % Normal 0.2-2.0 [facility] Comment on above: Performed By: #### C MP #### [facility] [address] [place] [address] Dr. Kaela Krause EO # 0.1 103/ul Normal 0.0-0.7 [facility] Comment on above: Performed By: #### C MP #### [facility] [address] [place] [address] Dr. Kaela Krause Eosinophils/100 WBC (Bld) 3.3 % Normal 0.9-7.0 [facility] Comment on above: Performed By: #### C MP #### [facility] [address] [place] [address] Dr. Kaela Krause Erythrocyte distribution width (RBC) [Ratio] 14.3 % Normal 11.0-15.0 [facility] Comment on above: Performed By: #### C MP #### [facility] [address] [place] [address] Dr. Kaela Krause Hematocrit (Bld) [Volume fraction] 33.7 % Critically low 42.0-54.0 [facility] Comment on above: Performed By: #### C MP #### [facility] [address] [place] [address] Dr. Kaela Krause Hemoglobin (Bld) [Mass/Vol] 11.9 g/dL Critically low 14.0-18.0 [facility] Comment on above: Performed By: #### C MP #### [facility] [address] [place] [address] Dr. Kaela Krause IG # 0.02 10e3/ul Normal 0.00-0.03 [facility] Comment on above: Performed By: #### C MP #### [facility] [address] [place] [address] Dr. Kaela Krause IG % 0.5 % Normal 0.0-0.5 [facility] Comment on above: Performed By: #### C MP #### [facility] [address] [place] [address] Dr. Kaela Krause LYMPH # 1.1 103/ul Critically low 1.2-3.8 [facility] Comment on above: Performed By: #### C MP #### [facility] [address] [place] [address] Dr. Kaela Krause Lymphocytes/100 WBC (Bld) 27.8 % Normal 20.5-60.0 [facility] Comment on above: Performed By: #### C MP #### [facility] [address] [place] [address] Dr. Kaela Krause MANUAL DIFF REQ NO Normal [facility] Comment on above: Performed By: #### C MP #### [facility] [address] [place] [address] Dr. Kaela Krause MCH (RBC) [Entitic mass] 27.4 pg Normal 25.9-34.0 [facility] Comment on above: Performed By: #### C MP #### [facility] [address] [place] [address] Dr. Kaela Krause MCHC (RBC) [Mass/Vol] 35.3 g/dL Critically high 29.9-35.2 [facility] Comment on above: Performed By: #### C MP #### [facility] [address] [place] [address] Dr. Kaela Krause MCV (RBC) [Entitic vol] 77.5 fL Critically low 80.0-94.0 [facility] Comment on above: Performed By: #### C MP #### [facility] [address] [place] [address] Dr. Kaela Krause MONO # 0.5 103/ul Normal 0.3-0.8 [facility] Comment on above: Performed By: #### C MP #### [facility] [address] [place] [address] Dr. Kaela Krause Monocytes/100 WBC (Bld) 13.5 % Critically high 1.7-12.0 [facility] Comment on above: Performed By: #### C MP #### [facility] [address] [place] [address] Dr. Kaela Krause NEUT # 2.1 103/ul Normal 1.4-6.5 [facility] Comment on above: Performed By: #### C MP #### [facility] [address] [place] [address] Dr. Kaela Krause Neutrophils/100 WBC (Bld) 54.4 % Normal 43.0-75.0 [facility] Comment on above: Performed By: #### C MP #### [facility] [address] [place] [address] Dr. Kaela Krause Platelet mean volume (Bld) [Entitic vol] 9.7 fL Normal 9.5-13.5 [facility] Comment on above: Performed By: #### C MP #### [facility] [address] [place] [address] Dr. Kaela Krause PLT 186 103/ul Normal 150-450 [facility] Comment on above: Performed By: #### C MP #### [facility] [address] [place] [address] Dr. Kaela Krause RBC 4.35 106/ul Critically low 4.70-6.10 [facility] Comment on above: Performed By: #### C MP #### [facility] [address] [place] [address] Dr. Kaela Krause WBC 3.9 103/ul Critically low 4.0-11.0 [facility] Comment on above: Performed By: #### C MP #### [facility] [address] [place] [address] Dr. Kaela Krause POINT OF CARE GLUCOSEon 11-11 Glucose [Mass/Vol] 131 mg/dL Critically high 74-106 [facility] Comment on above: Performed By: #### C MP #### [facility] [address] [place] [address] Dr. Kaela Krause PROF 14(COMP METB)on 023 Albumin [Mass/Vol] 2.7 g/dL Critically low 3.4-5.[address] [facility] Comment on above: Performed By: #### C MP #### [facility] [address] [place] [address] Dr. Kaela Krause Albumin/Globulin [Mass ratio] 0.8 {ratio} Normal [facility] Comment on above: Performed By: #### C MP #### [facility] [address] [place] [address] Dr. Kaela Krause ALP [Catalytic activity/Vol] 64 U/L Normal 46-116 [facility] Comment on above: Performed By: #### C MP #### [facility] [address] [place] [address] Dr. Kaela Krause ALT [Catalytic activity/Vol] 25 U/L Normal 16-63 [facility] Comment on above: Performed By: #### C MP #### [facility] [address] [place] [address] Dr. Kaela Krause Anion gap [Moles/Vol] 12.0 mmol/L Normal [facility] Comment on above: Performed By: #### C MP #### [facility] [address] [place] [address] Dr. Kaela Krause AST [Catalytic activity/Vol] 21 U/L Normal 15-37 [facility] Comment on above: Performed By: #### C MP #### [facility] [address] [address] [address] Kaela Krause Bilirubin [Mass/Vol] 0.2 mg/dL Normal 0.2-1.0 [facility] Comment on above: Performed By: #### C MP #### [facility] [address] [address] [address] Kaela Karuse Calcium [Mass/Vol] 9.1 mg/dL Normal 8.5-10.1 [facility] Comment on above: Performed By: #### C MP #### [facility] [address] [place] [address] Dr. Kaela Krause Chloride [Moles/Vol] 104 mmol/L Normal 98-107 [facility] Comment on above: Performed By: #### C MP #### [facility] [address] [place] [address] Dr. Kaela Krause CO2 [Moles/Vol] 27.3 mmol/L Normal 21.0-32.0 [facility] Comment on above: Performed By: #### C MP #### [facility] [address] [place] [address] Dr. Kaela Krause Creatinine [Mass/Vol] 0.90 mg/dL Normal 0.70-1.30 [facility] Comment on above: Performed By: #### C MP #### [facility] [address] [place] [address] Dr. Kaela Krause EGFR-AF GUATEMALAN >60 Normal >=60 [facility] Comment on above: Performed By: #### C MP #### [facility] [address] [place] [address] Dr. Kaela Krause EGFR-NON AF GUATEMALAN >60 Normal >=60 [facility] Comment on above: Performed By: #### C MP #### [facility] [address] [place] [address] Dr. Kaela Krause Globulin (S) [Mass/Vol] 3.6 g/dL Normal [facility] Comment on above: Performed By: #### C MP #### [facility] [address] [address] [address] Kaela Krause Glucose [Mass/Vol] 107 mg/dL Critically high 74-106 [facility] Comment on above: Performed By: #### C MP #### [facility] [address] [address] [address] Kaela Krause Potassium [Moles/Vol] 3.3 mmol/L Critically low 3.5-5.1 [facility] Comment on above: Performed By: #### C MP #### [facility] [address] [address] [address] Kaela Krause Protein [Mass/Vol] 6.3 g/dL Critically low 6.4-8.2 [facility] Comment on above: Performed By: #### C MP #### [facility] [address] [place] [address] Dr. Kaela Krause Sodium [Moles/Vol] 140 mmol/L Normal 136-145 [facility] Comment on above: Performed By: #### C MP #### [facility] [address] [address] [address] Kaela Krause Urea nitrogen [Mass/Vol] 13.0 mg/dL Normal 7.0-18.0 [facility] Comment on above: Performed By: #### C MP #### [facility] [address] [place] [address] Dr. Kaela Krause Urea nitrogen/Creatinine [Mass ratio] 14.4 mg/mg Normal [facility] Comment on above: Performed By: #### C MP #### [facility] [address] [place] [address] Dr. Kaela Krause CBC AUTO DIFFon 11-30-2022 BASO # 0.0 103/ul Normal 0.0-0.1 [facility] Comment on above: Performed By: #### C MP #### [facility] [address] [address] [address] Kaela Krause Basophils/100 WBC (Bld) 0.4 % Normal 0.2-2.0 [facility] Comment on above: Performed By: #### C MP #### [facility] [address] [place] [address] Dr. Kaela Krause EO # 0.0 103/ul Normal 0.0-0.7 [facility] Comment on above: Performed By: #### C MP #### [facility] [address] [place] [address] Dr. Kaela Krause Eosinophils/100 WBC (Bld) 0.6 % Critically low 0.9-7.0 [facility] Comment on above: Performed By: #### C MP #### [facility] [address] [place] [address] Dr. Kaela Krause Erythrocyte distribution width (RBC) [Ratio] 14.4 % Normal 11.0-15.0 [facility] Comment on above: Performed By: #### C MP #### [facility] [address] [place] [address] Dr. Kaela Krause Hematocrit (Bld) [Volume fraction] 33.8 % Critically low 42.0-54.0 [facility] Comment on above: Performed By: #### C MP #### [facility] [address] [place] [address] Dr. Kaela Krause Hemoglobin (Bld) [Mass/Vol] 11.8 g/dL Critically low 14.0-18.0 [facility] Comment on above: Performed By: #### C MP #### [facility] [address] [place] [address] Dr. Kaela Krause IG # 0.03 10e3/ul Normal 0.00-0.03 [facility] Comment on above: Performed By: #### C MP #### [facility] [address] [place] [address] Dr. Kaela Krause IG % 0.6 % Critically high 0.0-0.5 [facility] Comment on above: Performed By: #### C MP #### [facility] [address] [place] [address] Dr. Kaela Krause LYMPH # 0.8 103/ul Critically low 1.2-3.8 [facility] Comment on above: Performed By: #### C MP #### [facility] [address] [address] [address] Kaela Krause Lymphocytes/100 WBC (Bld) 15.6 % Critically low 20.5-60.0 [facility] Comment on above: Performed By: #### C MP #### [facility] [address] [address] [address] Kaela Krause MANUAL DIFF REQ NO Normal [facility] Comment on above: Performed By: #### C MP #### [facility] [address] [address] [address] Kaela Krause MCH (RBC) [Entitic mass] 27.1 pg Normal 25.9-34.0 [facility] Comment on above: Performed By: #### C MP #### [facility] [address] [place] [address] Dr. Kaela Krause MCHC (RBC) [Mass/Vol] 34.9 g/dL Normal 29.9-35.2 [facility] Comment on above: Performed By: #### C MP #### [facility] [address] [place] [address] Dr. Kaela Krause MCV (RBC) [Entitic vol] 77.5 fL Critically low 80.0-94.0 [facility] Comment on above: Performed By: #### C MP #### [facility] [address] [place] [address] Dr. Kaela Krause MONO # 0.3 103/ul Normal 0.3-0.8 [facility] Comment on above: Performed By: #### C MP #### [facility] [address] [place] [address] Dr. Kaela Krause Monocytes/100 WBC (Bld) 6.0 % Normal 1.7-12.0 [facility] Comment on above: Performed By: #### C MP #### [facility] [address] [place] [address] Dr. Kaela Krause NEUT # 3.8 103/ul Normal 1.4-6.5 [facility] Comment on above: Performed By: #### C MP #### [facility] [address] [address] [address] Kaela Krause Neutrophils/100 WBC (Bld) 76.8 % Critically high 43.0-75.0 [facility] Comment on above: Performed By: #### C MP #### [facility] [address] [address] [address] Kaela Krause Platelet mean volume (Bld) [Entitic vol] 9.4 fL Critically low 9.5-13.5 [facility] Comment on above: Performed By: #### C MP #### [facility] [address] [address] [address] Kaela Krause PLT 167 103/ul Normal 150-450 [facility] Comment on above: Performed By: #### C MP #### [facility] [address] [place] [address] Dr. Kaela Krause RBC 4.36 106/ul Critically low 4.70-6.10 [facility] Comment on above: Performed By: #### C MP #### [facility] [address] [address] [address] Kaela Krause WBC 5.0 103/ul Normal 4.0-11.0 [facility] Comment on above: Performed By: #### C MP #### [facility] [address] [place] [address] PELVIS W CONon [...] by: JESUS HAIRSTON Date: 2022-11-30 12:49 Normal [facility] POINT OF CARE GLUCOSEon 11-11 Glucose [Mass/Vol] 103 mg/dL Normal 74-106 [facility] Comment on above: Performed By: #### C MP #### [facility] [address] [place] [address] Dr. Kaela Krause Glucose [Mass/Vol] 103 mg/dL Normal 74-106 [facility] Comment on above: Performed By: #### P OCGLUC #### [facility] [address] [address] [address] Kaela Krause Glucose [Mass/Vol] 157 mg/dL Critically high 74-106 [facility] Comment on above: Performed By: #### P OCGLUC #### [facility] [address] [address] [address] Kaela Krause PROF 14(COMP METB)on 023 Albumin [Mass/Vol] 2.9 g/dL Critically low 3.4-5.[address] [facility] Comment on above: Performed By: #### C MP #### [facility] [address] [place] [address] Dr. Kaela Krause Albumin/Globulin [Mass ratio] 0.8 {ratio} Normal [facility] Comment on above: Performed By: #### C MP #### [facility] [address] [place] [address] Dr. Kaela Krause ALP [Catalytic activity/Vol] 56 U/L Normal 46-116 [facility] Comment on above: Performed By: #### C MP #### [facility] [address] [place] [address] Dr. Kaela Krause ALT [Catalytic activity/Vol] 24 U/L Normal 16-63 [facility] Comment on above: Performed By: #### C MP #### [facility] [address] [place] [address] Dr. Kaela Krause Anion gap [Moles/Vol] 12.8 mmol/L Normal [facility] Comment on above: Performed By: #### C MP #### [facility] [address] [place] [address] Dr. Kaela Krause AST [Catalytic activity/Vol] 18 U/L Normal 15-37 [facility] Comment on above: Performed By: #### C MP #### [facility] [address] [place] [address] Dr. Kaela Krause Bilirubin [Mass/Vol] 0.4 mg/dL Normal 0.2-1.0 [facility] Comment on above: Performed By: #### C MP #### [facility] [address] [place] [address] Dr. Kaela Krause Calcium [Mass/Vol] 8.8 mg/dL Normal 8.5-10.1 [facility] Comment on above: Performed By: #### C MP #### [facility] [address] [place] [address] Dr. Kaela Krause Chloride [Moles/Vol] 106 mmol/L Normal 98-107 [facility] Comment on above: Performed By: #### C MP #### [facility] [address] [place] [address] Dr. Kaela Krause CO2 [Moles/Vol] 27.6 mmol/L Normal 21.0-32.0 [facility] Comment on above: Performed By: #### C MP #### [facility] [address] [address] [address] Kaela Krause Creatinine [Mass/Vol] 0.97 mg/dL Normal 0.70-1.30 [facility] Comment on above: Performed By: #### C MP #### [facility] [address] [address] [address] Kaela Krause EGFR-AF GUATEMALAN >60 Normal >=60 [facility] Comment on above: Performed By: #### C MP #### [facility] [address] [address] [address] Kaela Krause EGFR-NON AF GUATEMALAN >60 Normal >=60 [facility] Comment on above: Performed By: #### C MP #### [facility] [address] [address] [address] Kaela Krause Globulin (S) [Mass/Vol] 3.5 g/dL Normal [facility] Comment on above: Performed By: #### C MP #### [facility] [address] [address] [address] Kaela Krause Glucose [Mass/Vol] 105 mg/dL Normal 74-106 [facility] Comment on above: Performed By: #### C MP #### [facility] [address] [address] [address] Kaela Krause Potassium [Moles/Vol] 3.4 mmol/L Critically low 3.5-5.1 [facility] Comment on above: Performed By: #### C MP #### [facility] [address] [address] [address] Kaela Krause Protein [Mass/Vol] 6.4 g/dL Normal 6.4-8.2 [facility] Comment on above: Performed By: #### C MP #### [facility] [address] [address] [address] Kaela Krause Sodium [Moles/Vol] 143 mmol/L Normal 136-145 [facility] Comment on above: Performed By: #### C MP #### [facility] [address] [address] [address] Kaela Krause Urea nitrogen [Mass/Vol] 9.0 mg/dL Normal 7.0-18.0 [facility] Comment on above: Performed By: #### C MP #### [facility] [address] [address] [address] Kaela Krause Urea nitrogen/Creatinine [Mass ratio] 9.3 mg/mg Normal [facility] Comment on above: Performed By: #### C MP #### [facility] [address] [address] [address] Kaela Krause CBC AUTO DIFFon 11-29-2022 BASO # 0.0 103/ul Normal 0.0-0.1 [facility] Comment on above: Performed By: #### C MP #### [facility] [address] [address] [address] Kaela Krause Basophils/100 WBC (Bld) 0.3 % Normal 0.2-2.0 [facility] Comment on above: Performed By: #### C MP #### [facility] [address] [address] [address] Kaela Krause EO # 0.0 103/ul Normal 0.0-0.7 [facility] Comment on above: Performed By: #### C MP #### [facility] [address] [address] [address] Kaela Krause Eosinophils/100 WBC (Bld) 0.1 % Critically low 0.9-7.0 [facility] Comment on above: Performed By: #### C MP #### [facility] [address] [address] [address] Kaela Krause Erythrocyte distribution width (RBC) [Ratio] 15.2 % Critically high 11.0-15.0 [facility] Comment on above: Performed By: #### C MP #### [facility] [address] [place] [address] Dr. Kaela Krause Hematocrit (Bld) [Volume fraction] 36.1 % Critically low 42.0-54.0 [facility] Comment on above: Performed By: #### C MP #### [facility] [address] [address] [address] Kaela Krause Hemoglobin (Bld) [Mass/Vol] 11.9 g/dL Critically low 14.0-18.0 [facility] Comment on above: Performed By: #### C MP #### [facility] [address] [address] [address] Kaela Krause IG # 0.02 10e3/ul Normal 0.00-0.03 [facility] Comment on above: Performed By: #### C MP #### [facility] [address] [place] [address] Dr. Kaela Krause IG % 0.3 % Normal 0.0-0.5 [facility] Comment on above: Performed By: #### C MP #### [facility] [address] [place] [address] Dr. Kaela Krause LYMPH # 0.7 103/ul Critically low 1.2-3.8 [facility] Comment on above: Performed By: #### C MP #### [facility] [address] [place] [address] Dr. Kaela Krause Lymphocytes/100 WBC (Bld) 10.2 % Critically low 20.5-60.0 [facility] Comment on above: Performed By: #### C MP #### [facility] [address] [place] [address] Dr. Kaela Krause MANUAL DIFF REQ NO Normal [facility] Comment on above: Performed By: #### C MP #### [facility] [address] [place] [address] Dr. Kaela Krause MCH (RBC) [Entitic mass] 27.4 pg Normal 25.9-34.0 [facility] Comment on above: Performed By: #### C MP #### [facility] [address] [place] [address] Dr. Kaela Krause MCHC (RBC) [Mass/Vol] 33.0 g/dL Normal 29.9-35.2 [facility] Comment on above: Performed By: #### C MP #### [facility] [address] [address] [address] Kaela Krause MCV (RBC) [Entitic vol] 83.2 fL Normal 80.0-94.0 [facility] Comment on above: Performed By: #### C MP #### [facility] [address] [address] [address] Kaela Krause MONO # 0.3 103/ul Normal 0.3-0.8 [facility] Comment on above: Performed By: #### C MP #### [facility] [address] [address] [address] Kaela Krause Monocytes/100 WBC (Bld) 4.6 % Normal 1.7-12.0 [facility] Comment on above: Performed By: #### C MP #### [facility] [address] [address] [address] Kaela Krause NEUT # 5.9 103/ul Normal 1.4-6.5 [facility] Comment on above: Performed By: #### C MP #### [facility] [address] [address] [address] Kaela Krause Neutrophils/100 WBC (Bld) 84.5 % Critically high 43.0-75.0 [facility] Comment on above: Performed By: #### C MP #### [facility] [address] [address] [address] Kaela Krause Platelet mean volume (Bld) [Entitic vol] 9.4 fL Critically low 9.5-13.5 [facility] Comment on above: Performed By: #### C MP #### [facility] [address] [address] [address] Kaela Krause PLT 170 103/ul Normal 150-450 [facility] Comment on above: Performed By: #### C MP #### [facility] [address] [address] [address] Kaela Krause RBC 4.34 106/ul Critically low 4.70-6.10 [facility] Comment on above: Performed By: #### C MP #### [facility] [address] [address] [address] Kaela Krause WBC 7.0 103/ul Normal 4.0-11.0 [facility] Comment on above: Performed By: #### C MP #### [facility] [address] [address] [address] Kaela Krause CULTURE BLOODon 11-29-2022 Microscopic examination of blood, culture Culture Observations: NO GROWTH AT 5 DAYS. [facility] Comment on above: Performed By: #### B [id number] #### [facility] [address] [address] [address] Kaela Krause Microscopic examination of blood, culture Culture Observations: NO GROWTH AT 5 DAYS. [facility] Comment on above: Performed By: #### L ACT #### [facility] [address] [place] [address] Dr. Kaela Krause POINT OF CARE GLUCOSEon 11-11 Glucose [Mass/Vol] 108 mg/dL Critically high 74-106 [facility] Comment on above: Performed By: #### C MP #### [facility] [address] [place] [address] Dr. Kaela Krause Glucose [Mass/Vol] 114 mg/dL Critically high 74-106 [facility] Comment on above: Performed By: #### L ACT #### [facility] [address] [place] [address] Dr. Kaela Krause Glucose [Mass/Vol] 121 mg/dL Critically high -106 [facility] Comment on above: Performed By: #### P OCGLUC #### [facility] [address] [place] [address] Dr. Kaela Krause Glucose [Mass/Vol] 96 mg/dL Normal -106 [facility] Comment on above: Performed By: #### P OCGLUC #### [facility] [address] [place] [address] Dr. Kaela Krause PROF 14(COMP METB)on 023 Albumin [Mass/Vol] 3.0 g/dL Critically low 3.4-5.[address] [facility] Comment on above: Performed By: #### C MP #### [facility] [address] [address] [address] Kaela Krause Albumin/Globulin [Mass ratio] 0.9 {ratio} Normal [facility] Comment on above: Performed By: #### C MP #### [facility] [address] [address] [address] Kaela Krause ALP [Catalytic activity/Vol] 42 U/L Critically low 46-116 [facility] Comment on above: Performed By: #### C MP #### [facility] [address] [address] [address] Kaela Krause ALT [Catalytic activity/Vol] 17 U/L Normal 16-63 [facility] Comment on above: Performed By: #### C MP #### [facility] [address] [place] [address] Dr. Kaela Krause Anion gap [Moles/Vol] 13.7 mmol/L Normal [facility] Comment on above: Performed By: #### C MP #### [facility] [address] [place] [address] Dr. Kaela Krause AST [Catalytic activity/Vol] 16 U/L Normal 15-37 [facility] Comment on above: Performed By: #### C MP #### [facility] [address] [place] [address] Dr. Kalea Krause Bilirubin [Mass/Vol] 0.5 mg/dL Normal 0.2-1.0 [facility] Comment on above: Performed By: #### C MP #### [facility] [address] [place] [address] Dr. Kaela Krause Calcium [Mass/Vol] 8.4 mg/dL Critically low 8.5-10.[address] [facility] Comment on above: Performed By: #### C MP #### [facility] [address] [place] [address] Dr. Kaela Krause Chloride [Moles/Vol] 107 mmol/L Normal 98-107 [facility] Comment on above: Performed By: #### C MP #### [facility] [address] [address] [address] Kaela Krause CO2 [Moles/Vol] 23.8 mmol/L Normal 21.0-32.0 [facility] Comment on above: Performed By: #### C MP #### [facility] [address] [address] [address] Kaela Krause Creatinine [Mass/Vol] 1.03 mg/dL Normal 0.70-1.30 [facility] Comment on above: Performed By: #### C MP #### [facility] [address] [address] [address] Kaela Krause EGFR-AF GUATEMALAN >60 Normal >=60 [facility] Comment on above: Performed By: #### C MP #### [facility] [address] [place] [address] Dr. Kaela Krause EGFR-NON AF GUATEMALAN >60 Normal >=60 [facility] Comment on above: Performed By: #### C MP #### [facility] [address] [address] [address] Kaela Krause Globulin (S) [Mass/Vol] 3.2 g/dL Normal [facility] Comment on above: Performed By: #### C MP #### [facility] [address] [address] [address] Kaela Krause Glucose [Mass/Vol] 96 mg/dL Normal 74-106 [facility] Comment on above: Performed By: #### C MP #### [facility] [address] [place] [address] Dr. Kaela Krause Potassium [Moles/Vol] 3.5 mmol/L Normal 3.5-5.1 [facility] Comment on above: Performed By: #### C MP #### [facility] [address] [place] [address] Dr. Kaela Krause Protein [Mass/Vol] 6.2 g/dL Critically low 6.4-8.2 [facility] Comment on above: Performed By: #### C MP #### [facility] [address] [place] [address] Dr. Kaela Krause Sodium [Moles/Vol] 141 mmol/L Normal 136-145 [facility] Comment on above: Performed By: #### C MP #### [facility] [address] [place] [address] Dr. Kaela Krause Urea nitrogen [Mass/Vol] 13.0 mg/dL Normal 7.0-18.0 [facility] Comment on above: Performed By: #### C MP #### [facility] [address] [place] [address] Dr. Kaela Krause Urea nitrogen/Creatinine [Mass ratio] 12.6 mg/mg Normal [facility] Comment on above: Performed By: #### C MP #### [facility] [address] [place] [address] Dr. Kaela Krause CBC AUTO DIFFon 11-28-2022 BASO # 0.0 103/ul Normal 0.0-0.1 [facility] Comment on above: Performed By: #### C MP #### [facility] [address] [place] [address] Dr. Kaela Krause Basophils/100 WBC (Bld) 0.2 % Normal 0.2-2.0 [facility] Comment on above: Performed By: #### C MP #### [facility] [address] [place] [address] Dr. Kaela Krause EO # 0.0 103/ul Normal 0.0-0.7 [facility] Comment on above: Performed By: #### C MP #### [facility] [address] [place] [address] Dr. Kaela Krause Eosinophils/100 WBC (Bld) 0.1 % Critically low 0.9-7.0 [facility] Comment on above: Performed By: #### C MP #### [facility] [address] [place] [address] Dr. Kaela Krause Erythrocyte distribution width (RBC) [Ratio] 14.9 % Normal 11.0-15.0 [facility] Comment on above: Performed By: #### C MP #### [facility] [address] [place] [address] Dr. Kaela Krause Hematocrit (Bld) [Volume fraction] 35.3 % Critically low 42.0-54.0 [facility] Comment on above: Performed By: #### C MP #### [facility] [address] [address] [address] Kaela Krause Hemoglobin (Bld) [Mass/Vol] 11.7 g/dL Critically low 14.0-18.0 [facility] Comment on above: Performed By: #### C MP #### [facility] [address] [address] [address] Kaela Krause IG # 0.09 10e3/ul Critically high 0.00-0.03 [facility] Comment on above: Performed By: #### C MP #### [facility] [address] [address] [address] Kaela Krause IG % 0.8 % Critically high 0.0-0.5 [facility] Comment on above: Performed By: #### C MP #### [facility] [address] [address] [address] Kaela Krause LYMPH # 0.8 103/ul Critically low 1.2-3.8 [facility] Comment on above: Performed By: #### C MP #### [facility] [address] [place] [address] Dr. Kaela Krause Lymphocytes/100 WBC (Bld) 6.7 % Critically low 20.5-60.0 [facility] Comment on above: Performed By: #### C MP #### [facility] [address] [address] [address] Kaela Krause MANUAL DIFF REQ NO Normal [facility] Comment on above: Performed By: #### C MP #### [facility] [address] [address] [address] Kaela Krause MCH (RBC) [Entitic mass] 27.6 pg Normal 25.9-34.0 [facility] Comment on above: Performed By: #### C MP #### [facility] [address] [place] [address] Dr. Kaela Krause MCHC (RBC) [Mass/Vol] 33.1 g/dL Normal 29.9-35.2 [facility] Comment on above: Performed By: #### C MP #### [facility] [address] [place] [address] Dr. Kaela Krause MCV (RBC) [Entitic vol] 83.3 fL Normal 80.0-94.0 [facility] Comment on above: Performed By: #### C MP #### [facility] [address] [place] [address] Dr. Kaela Krause MONO # 0.6 103/ul Normal 0.3-0.8 [facility] Comment on above: Performed By: #### C MP #### [facility] [address] [place] [address] Dr. Kaela Krause Monocytes/100 WBC (Bld) 5.4 % Normal 1.7-12.0 [facility] Comment on above: Performed By: #### C MP #### [facility] [address] [place] [address] Dr. Kaela Krause NEUT # 10.0 103/ul Critically high 1.4-6.5 [facility] Comment on above: Performed By: #### C MP #### [facility] [address] [place] [address] Dr. Kaela Krause Neutrophils/100 WBC (Bld) 86.8 % Critically high 43.0-75.0 [facility] Comment on above: Performed By: #### C MP #### [facility] [address] [place] [address] Dr. Kaela Krause Platelet mean volume (Bld) [Entitic vol] 9.7 fL Normal 9.5-13.5 [facility] Comment on above: Performed By: #### C MP #### [facility] [address] [place] [address] Dr. Kaela Krause PLT 225 103/ul Normal 150-450 [facility] Comment on above: Performed By: #### C MP #### [facility] [address] [place] [address] Dr. Kaela Krause RBC 4.24 106/ul Critically low 4.70-6.10 [facility] Comment on above: Performed By: #### C MP #### [facility] [address] [address] [address] Kaela Krause WBC 11.6 103/ul Critically high 4.0-11.0 [facility] Comment on above: Performed By: #### C MP #### [facility] [address] [address] [address] Kaela Krause BASO # 0.0 103/ul Normal 0.0-0.1 [facility] Comment on above: Performed By: #### C MP #### [facility] [address] [address] [address] Kaela Krause Basophils/100 WBC (Bld) 0.2 % Normal 0.2-2.0 [facility] Comment on above: Performed By: #### C MP #### [facility] [address] [address] [address] Kaela Krause EO # 0.0 103/ul Normal 0.0-0.7 [facility] Comment on above: Performed By: #### C MP #### [facility] [address] [address] [address] Kaela Krause Eosinophils/100 WBC (Bld) 0.1 % Critically low 0.9-7.0 [facility] Comment on above: Performed By: #### C MP #### [facility] [address] [address] [address] Kaela Krause Erythrocyte distribution width (RBC) [Ratio] 14.5 % Normal 11.0-15.0 [facility] Comment on above: Performed By: #### C MP #### [facility] [address] [address] [address] Kaela Krause Hematocrit (Bld) [Volume fraction] 40.0 % Critically low 42.0-54.0 [facility] Comment on above: Performed By: #### C MP #### [facility] [address] [address] [address] Kaela Krause Hemoglobin (Bld) [Mass/Vol] 13.4 g/dL Critically low 14.0-18.0 [facility] Comment on above: Performed By: #### C MP #### [facility] [address] [address] [address] Kaela Krause IG # 0.06 10e3/ul Critically high 0.00-0.03 [facility] Comment on above: Performed By: #### C MP #### [facility] [address] [address] [address] Kaela Krause IG % 0.5 % Normal 0.0-0.5 [facility] Comment on above: Performed By: #### C MP #### [facility] [address] [address] [address] Kaela Krause LYMPH # 0.4 103/ul Critically low 1.2-3.8 [facility] Comment on above: Performed By: #### C MP #### [facility] [address] [address] [address] Kaela Krause Lymphocytes/100 WBC (Bld) 3.4 % Critically low 20.5-60.0 [facility] Comment on above: Performed By: #### C MP #### [facility] [address] [address] [address] Kaela Krause MANUAL DIFF REQ NO Normal [facility] Comment on above: Performed By: #### C MP #### [facility] [address] [address] [address] Kaela Krause MCH (RBC) [Entitic mass] 27.6 pg Normal 25.9-34.0 [facility] Comment on above: Performed By: #### C MP #### [facility] [address] [address] [address] Kaela Krause MCHC (RBC) [Mass/Vol] 33.5 g/dL Normal 29.9-35.2 [facility] Comment on above: Performed By: #### C MP #### [facility] [address] [address] [address] Kaela Krause MCV (RBC) [Entitic vol] 82.3 fL Normal 80.0-94.0 [facility] Comment on above: Performed By: #### C MP #### [facility] [address] [address] [address] Kaela Krause MONO # 0.5 103/ul Normal 0.3-0.8 [facility] Comment on above: Performed By: #### C MP #### [facility] [address] [address] [address] Kaela Krause Monocytes/100 WBC (Bld) 4.1 % Normal 1.7-12.0 [facility] Comment on above: Performed By: #### C MP #### [facility] [address] [address] [address] Kaela Krause NEUT # 11.3 103/ul Critically high 1.4-6.5 [facility] Comment on above: Performed By: #### C MP #### [facility] [address] [place] [address] Dr. Kaela Krause Neutrophils/100 WBC (Bld) 91.7 % Critically high 43.0-75.0 [facility] Comment on above: Performed By: #### C MP #### [facility] [address] [place] [address] Dr. Kaela Krause Platelet mean volume (Bld) [Entitic vol] 9.7 fL Normal 9.5-13.5 [facility] Comment on above: Performed By: #### C MP #### [facility] [address] [place] [address] Dr. Kaela Krause PLT 251 103/ul Normal 150-450 [facility] Comment on above: Performed By: #### C MP #### [facility] [address] [address] [address] Kaela Krause RBC 4.86 106/ul Normal 4.70-6.10 [facility] Comment on above: Performed By: #### C MP #### [facility] [address] [address] [address] Kaela Krause WBC 12.3 103/ul Critically high 4.0-11.0 [facility] Comment on above: Performed By: #### C MP #### [facility] [address] [place] [address] Dr. Kaela Krause CULTURE BLOODon 11-28-2022 Microscopic examination of blood, culture Culture Observations: NO GROWTH AT 5 DAYS. Isolate 1 BC_[id number] Normal [facility] Comment on above: Performed By: #### B [id number] #### [facility] [address] [place] [address] Dr. Kaela Krause Performed By: #### L ACT #### [facility] [address] [place] [address] Dr. Kaela Krause CULTURE URINEon 11-28-2022 CULTURE URINE Culture Observations : NO GROWTH. Normal [facility] Comment on above: Performed By: #### U RCX #### [facility] [address] [place] [address] Dr. Kaela Krause [facility]10 SARS-CoV-2 (COVID-19) RNA XAVIER+probe Ql (Unsp spec) Not detected Normal NOT DETECTED [facility] Comment on above: Result Comment: When diagnostic [...] for this test is supported by the [employer] of [employer] and Human Service's declaration that [...] used). Performed By: #### L ACT #### [facility] [address] [place] [address] Dr. Kaela Krause ER URINE PROFILEon 3 Bilirubin Ql (U) Negative Normal NEGATIVE [facility] Comment on above: Performed By: #### L ACT #### [facility] [address] [place] [address] Dr. Kaela Krause Color (U) YELLOW Normal YELLOW [facility] Comment on above: Performed By: #### L ACT #### [facility] [address] [place] [address] Dr. Kaela ROSSI A micrscopic examination will be performed if indicated. Normal [facility] Comment on above: Performed By: #### L ACT #### [facility] [address] [place] [address] Dr. Kaela Krause Glucose Ql (U) Negative Normal NEGATIVE [facility] Comment on above: Performed By: #### L ACT #### [facility] [address] [place] [address] Dr. Kaela Krause Hemoglobin Ql (U) LARGE Abnormal NEGATIVE [facility] Comment on above: Performed By: #### L ACT #### [facility] [address] [place] [address] Dr. Kaela Krause Ketones Ql (U) Negative Normal NEGATIVE [facility] Comment on above: Performed By: #### L ACT #### [facility] [address] [place] [address] Dr. Kaela Krause LEUKOCYTES SMALL Abnormal NEGATIVE [facility] Comment on above: Performed By: #### L ACT #### [facility] [address] [place] [address] Dr. Kaela Krause Nitrite Ql (U) Negative Normal NEGATIVE [facility] Comment on above: Performed By: #### L ACT #### [facility] [address] [place] [address] Dr. Kaela Krause pH (U) 6.0 [pH] Normal 5-9 [facility] Comment on above: Performed By: #### L ACT #### [facility] [address] [place] [address] Dr. Kaela Krause SPEC GRAVITY <=1.005 Abnormal 1.005-<=1.02 5 [facility] Comment on above: Performed By: #### L ACT #### [facility] [address] [place] [address] Dr. Kaela Krause UA PROTEIN Negative Normal NEGATIVE/ TRACE [facility] Comment on above: Performed By: #### L ACT #### [facility] [address] [place] [address] Dr. Kaela Krause UR MICRO IND INDICATED Normal [facility] Comment on above: Performed By: #### L ACT #### [facility] [address] [place] [address] Dr. Kaela Krause Urobilinogen Qn (U) 0.2 {Trey'U}/dL Normal 0.2 - 1. 0 [facility] Comment on above: Performed By: #### L ACT #### [facility] [address] [place] [address] Dr. Kaela Krause INFLUENZA A AND B AGon 11-28 INFLUANEGH SEE BELOW Normal [facility] Comment on above: Result Comment: Nega tive for Flu A protein angiten. Infection due to Flu A cannot be ruled out. Flu A angiten in the sample may be below the detection limit of the test. Performed By: #### C MP #### [facility] [address] [place] [address] Dr. Kaela Krause INFLUENZA A AG Negative Normal NEGATIVE SEE COMMENT [facility] Comment on above: Performed By: #### C MP #### [facility] [address] [place] [address] Dr. Keala Krause INFLUENZA B AG Negative Normal NEGATIVE SEE COMMENT [facility] Comment on above: Performed By: #### C MP #### [facility] [address] [place] [address] Dr. Kaela Krause INFLUPOSHB SEE BELOW Normal [facility] Comment on above: Result Comment: NOTE : Live attenuated influenzae vaccine viruses can cause a positive result for a rapid influenza diagnostic test if administered up to 7 days prior to rapid testing. Performed By: #### C MP #### [facility] [address] [place] [address] Dr. Kaela Krause LACTATE/LACTIC ACIDon 2022 Lactate [Moles/Vol] 1.4 mmol/L Normal 0.4-1.9 [facility] Comment on above: Performed By: #### C MP #### [facility] [address] [address] [address] Kaela Krause Lactate [Moles/Vol] 1.0 mmol/L Normal 0.4-1.9 [facility] Comment on above: Performed By: #### L ACT #### [facility] [address] [address] [address] Kaela Krause Lactate [Moles/Vol] 2.6 mmol/L Critically high 0.4-1.9 [facility] Comment on above: Performed By: #### C MP #### [facility] [address] [address] [address] Kaela Krause POINT OF CARE GLUCOSEon 11-10 Glucose [Mass/Vol] 120 mg/dL Critically high 74-106 [facility] Comment on above: Performed By: #### C MP #### [facility] [address] [address] [address] Kaela Krause Glucose [Mass/Vol] 77 mg/dL Normal 74-106 [facility] Comment on above: Performed By: #### C MP #### [facility] [address] [place] [address] Dr. Kaela Krause Glucose [Mass/Vol] 97 mg/dL Normal 74-106 [facility] Comment on above: Performed By: #### L ACT #### [facility] [address] [address] [address] Kaela Krause Glucose [Mass/Vol] 112 mg/dL Critically high 74-106 [facility] Comment on above: Performed By: #### C MP #### [facility] [address] [address] [address] Kaela Krause PROF 14(COMP METB)on 023 Albumin [Mass/Vol] 3.8 g/dL Normal 3.4-5.0 [facility] Comment on above: Performed By: #### C MP #### [facility] [address] [place] [address] Dr. Kaela Krause Albumin/Globulin [Mass ratio] 1.2 {ratio} Normal [facility] Comment on above: Performed By: #### C MP #### [facility] [address] [address] [address] Kaela Krause ALP [Catalytic activity/Vol] 55 U/L Normal 46-116 [facility] Comment on above: Performed By: #### C MP #### [facility] [address] [address] [address] Kaela Krause ALT [Catalytic activity/Vol] 18 U/L Normal 16-63 [facility] Comment on above: Performed By: #### C MP #### [facility] [address] [address] [address] Kaela Krause Anion gap [Moles/Vol] 14.4 mmol/L Normal [facility] Comment on above: Performed By: #### C MP #### [facility] [address] [address] [address] Kaela Krause AST [Catalytic activity/Vol] 17 U/L Normal 15-37 [facility] Comment on above: Performed By: #### C MP #### [facility] [address] [address] [address] Kaela Krause Bilirubin [Mass/Vol] 0.8 mg/dL Normal 0.2-1.0 [facility] Comment on above: Performed By: #### C MP #### [facility] [address] [address] [address] Kaela Krause Calcium [Mass/Vol] 9.6 mg/dL Normal 8.5-10.1 [facility] Comment on above: Performed By: #### C MP #### [facility] [address] [address] [address] Kaela Krause Chloride [Moles/Vol] 103 mmol/L Normal 98-107 [facility] Comment on above: Performed By: #### C MP #### [facility] [address] [address] [address] Kaela Krause CO2 [Moles/Vol] 24.3 mmol/L Normal 21.0-32.0 [facility] Comment on above: Performed By: #### C MP #### [facility] [address] [address] [address] Kaela Krause Creatinine [Mass/Vol] 1.18 mg/dL Normal 0.70-1.30 [facility] Comment on above: Performed By: #### C MP #### [facility] [address] [address] [address] Kaela Krause EGFR-AF GUATEMALAN >60 Normal >=60 [facility] Comment on above: Performed By: #### C MP #### [facility] [address] [address] [address] Kaela Krause EGFR-NON AF GUATEMALAN >60 Normal >=60 [facility] Comment on above: Performed By: #### C MP #### [facility] [address] [place] [address] Dr. Kaela Krause Globulin (S) [Mass/Vol] 3.3 g/dL Normal [facility] Comment on above: Performed By: #### C MP #### [facility] [address] [place] [address] Dr. Kaela Krause Glucose [Mass/Vol] 163 mg/dL Critically high 74-106 [facility] Comment on above: Performed By: #### C MP #### [facility] [address] [place] [address] Dr. Kaela Krause Potassium [Moles/Vol] 3.7 mmol/L Normal 3.5-5.1 [facility] Comment on above: Performed By: #### C MP #### [facility] [address] [place] [address] Dr. Kaela Krause Protein [Mass/Vol] 7.1 g/dL Normal 6.4-8.2 [facility] Comment on above: Performed By: #### C MP #### [facility] [address] [place] [address] Dr. Kaela Krause Sodium [Moles/Vol] 138 mmol/L Normal 136-145 [facility] Comment on above: Performed By: #### C MP #### [facility] [address] [place] [address] Dr. Kaela Krause Urea nitrogen [Mass/Vol] 21.0 mg/dL Critically high 7.0-18.0 [facility] Comment on above: Performed By: #### C MP #### [facility] [address] [address] [address] Kaela Krause Urea nitrogen/Creatinine [Mass ratio] 17.8 mg/mg Normal [facility] Comment on above: Performed By: #### C MP #### [facility] [address] [address] [address] Kaela Krause PROF CHEM 8 (BAS METB)on Anion gap [Moles/Vol] 11.5 mmol/L Normal [facility] Comment on above: Performed By: #### C MP #### [facility] [address] [address] [address] Kaela Krause Calcium [Mass/Vol] 8.4 mg/dL Critically low 8.5-10.[address] [facility] Comment on above: Performed By: #### C MP #### [facility] [address] [address] [address] Kaela Krause Chloride [Moles/Vol] 109 mmol/L Critically high 98-107 [facility] Comment on above: Performed By: #### C MP #### [facility] [address] [address] [address] Kaela Krause CO2 [Moles/Vol] 26.7 mmol/L Normal 21.0-32.0 [facility] Comment on above: Performed By: #### C MP #### [facility] [address] [place] [address] Dr. Kaela Krause Creatinine [Mass/Vol] 0.98 mg/dL Normal 0.70-1.30 [facility] Comment on above: Performed By: #### C MP #### [facility] [address] [place] [address] Dr. Kaela Krause EGFR-AF GUATEMALAN >60 Normal >=60 [facility] Comment on above: Performed By: #### C MP #### [facility] [address] [address] [address] Kaela Krause EGFR-NON AF GUATEMALAN >60 Normal >=60 [facility] Comment on above: Performed By: #### C MP #### [facility] [address] [place] [address] Dr. Kaela Krause Glucose [Mass/Vol] 117 mg/dL Critically high 74-106 [facility] Comment on above: Performed By: #### C MP #### [facility] [address] [place] [address] Dr. Kaela Krause Potassium [Moles/Vol] 4.2 mmol/L Normal 3.5-5.1 [facility] Comment on above: Performed By: #### C MP #### [facility] [address] [place] [address] Dr. Kaela Krause Sodium [Moles/Vol] 143 mmol/L Normal 136-145 [facility] Comment on above: Performed By: #### C MP #### [facility] [address] [place] [address] Dr. Kaela Krause Urea nitrogen [Mass/Vol] 16.0 mg/dL Normal 7.0-18.0 [facility] Comment on above: Performed By: #### C MP #### [facility] [address] [place] [address] Dr. Kaela Krause Urea nitrogen/Creatinine [Mass ratio] 16.3 mg/mg Normal [facility] Comment on above: Performed By: #### C MP #### [facility] [address] [place] [address] Dr. Kaela Krause URINE MICROSCOPIC ONLYon BACTERIA TRACE Abnormal NONE SEEN [facility] Comment on above: Performed By: #### L ACT #### [facility] [address] [place] [address] Dr. Kaela Krause Bacteria identified Cx Nom (U) INDICATED Normal [facility] Comment on above: Performed By: #### L ACT #### [facility] [address] [place] [address] Dr. Kaela Krause CAST NONE SEEN Normal NONE SEEN [facility] Comment on above: Performed By: #### L ACT #### [facility] [address] [address] [address] Kaela Krause Crystals LM Nom (Urine sed) NONE SEEN Normal NONE SEEN [facility] Comment on above: Performed By: #### L ACT #### [facility] [address] [place] [address] Dr. Kaela Krause Epithelial cells LM Ql (Urine sed) RARE Normal NONE SEEN /RARE [facility] Comment on above: Performed By: #### L ACT #### [facility] [address] [place] [address] Dr. Kaela Krause MUCOUS NONE SEEN Normal NONE SEEN [facility] Comment on above: Performed By: #### L ACT #### [facility] [address] [place] [address] Dr. Kaela Krause RBC 2-5 Abnormal 0-2 [facility] Comment on above: Performed By: #### L ACT #### [facility] [address] [place] [address] Dr. Kaela Krause WBC 2-5 Abnormal NONE SEEN [facility] Comment on above: Performed By: #### L ACT #### [facility] [address] [place] [address] Dr. Kaela Krause XR CHEST 1 Von [...] by: KRISTIN SINGH Date: 2022-11-28 00:38 Normal [facility] Consent for Procedure/Surger yon 11-27-2022 Consent for Procedure/Surgery [id number] 1.00CD:127 Normal [facility] IntraOperative Documentson 0 11-27-2022 IntraOperative Documents [id number]# 1.00CD:127 Normal [facility] Consent for Treatmenton 11-10 Consent for Treatment [id number] .00CD:127 Normal [facility] Main OR Intraoperative Recor don 11-26-2022 Main OR Intraoperative Record IntraOp Document Type FTURO Summary Primary Physician: Christiano MCCAIN MD Finalized Date/Time: 11/26/22 13:26:07 Pt. Name: PING KENNEYMONIQUE/Sex: 1955 Male Med Rec #: [id number] Physician: Christiano MCCAIN MD Financial #: [id number] Pt. Type: O Room/Bed: / Admit/Disch: 11/20/22 [...] Zaina Cuenca Role Performed Surgeon - Primary Auto Transmission Mechanic - Primary Scrub - Primary Time In [...] PRAVIN Curtis RN, Ruthann 11/26/22 13:26 Normal [facility] Main OR Preoperative Recordo n 11-26-2022 Main OR Preoperative Record Holding Area Document Type FTURO Summary Primary Physician: Christiano MCCAIN MD Finalized Date/Time: 11/26/22 13:26:15 Pt. Name: MONIQUE FENG JR./Sex: 1955 Male Med Rec #: [id number] Physician: Christiano MCCAIN MD Financial #: [id number] Pt. Type: O Room/Bed: / Admit/Disch: 11/20/22 [...] No Pain Comment: na Skin Integrity Intact, [place], Warm, & Dry Vitals - EU Blood Pressure 143/83 Pulse 53 bpm Respirations 16 br/min SPO2 96 % RN Reviewed Yes Last Modified By: PRAVIN Curtis RN, Ruthann 11/26/22 09:32:46 General Comments: temp:36.2 Finalized By: PRAVIN Curtis RN, Ruthann Document Signatures Signed By: Mp BALDERRAMAElida 11/26/22 08:43 PRAVIN Curtis RN, Ruthann 11/26/22 09:32 PRAVIN Curtis RN, Ruthann 11/26/22 13:26 Normal [facility] Operative Reporton 3 Operative Report Patient: MONIQUE [...] were sent to pathology for evaluation. Normal [facility] Comment on above: Result Comment: Elec tronically [...] for your post-operative appointment in 1-2 weeks [phone] or [phone] Normal [facility] Prostate Histology ([facility]) on 11-26-2022 PH Method of Extraction Needle Biopsy Normal [facility] Comment on above: Performed By: #### 1 [id number] ####[facility] [address] [place] [address] PH Number of Jars 2 Invalid Interpretation Code [facility] Comment on above: Performed By: #### 1 [id number] ####[facility] [address] [place] [address] PH Specimen 1 L Apx Prostate Normal [facility] Comment on above: Performed By: #### 1 [id number] ####[facility] [address] [place] [address] PH Specimen 10 R Lat Bse Prost Normal [facility] Comment on above: Performed By: #### 1 [id number] ####[facility] [address] [place] [address] PH Specimen 11 R Lat Mid Prost Normal [facility] Comment on above: Performed By: #### 1 [id number] ####[facility] [address] [place] [address] PH Specimen 12 R Mid Prostate Normal [facility] Comment on above: Performed By: #### 1 [id number] ####[facility] [address] [place] [address] PH Specimen 2 L Base Prostate Normal [facility] Comment on above: Performed By: #### 1 [id number] ####[facility] [address] [place] [address] PH Specimen 3 L Lat Apx Prost Normal [facility] Comment on above: Performed By: #### 1 [id number] ####[facility] [address] [place] [address] PH Specimen 4 L Lat Bse Prost Normal [facility] Comment on above: Performed By: #### 1 [id number] ####[facility] [address] [place] [address] PH Specimen 5 L Mid Prostate Normal [facility] Comment on above: Performed By: #### 1 [id number] ####[facility] [address] [place] [address] PH Specimen 6 L Lat Mid Prost Normal [facility] Comment on above: Performed By: #### 1 [id number] ####[facility] [address] [place] [address] PH Specimen 7 R Apx Prostate Normal [facility] Comment on above: Performed By: #### 1 [id number] ####[facility] [address] [place] [address] PH Specimen 8 R Base Prostate Normal [facility] Comment on above: Performed By: #### 1 [id number] ####[facility] [address] [place] [place] [address] PH Specimen 9 R Lat Apx Prost Normal [facility] Comment on above: Performed By: #### 1 [id number] ####[facility] [address] [place] [address] PH Type of Service Technical Only Normal [facility] Comment on above: Performed By: #### 1 [id number] ####[facility] [address] [place] [address] RAD - MRI Reporton 2 RAD - MRI Report [id number] .00CD:127 Normal [facility] MR prostate wo/w conon 10-01 MR prostate wo/w con [facility] Main [address] [address] MRI Report Signed Patient: Monique Feng MR#: [id number] 02 : 1955 Acct:[id number] Age/Sex: 67 / M ADM Date: 09/20/22 [...] Stanley Jr., D.O.10/01/2022 8:20 AM Dictation Location: [place] [address] Transcribed By: [facility] 10/01/22819 Dictated By: Matteo Stanley Jr, DO 10/01/22813 Signed By: 10/01/22819 [facility] ISTAT XRay CREon 09-21-2022 ISTAT GFR ( > 60 [facility] Comment on above: Result Comment: GFR estimated reference range: According to KDOQI guidelines, <60 ml/min/1.73m2 is sufficient to diagnose a patient with chronic kidney disease. PERFORMED BY: [place] [address] PATHOLOGIST PAPER TUBE CUTTER MELISA FRANK M.D. Performed By: #### I SCRE #### [address] Point of Care testing , ISTAT GFR (Non- Am > 60 [facility] Comment on above: Performed By: #### I SCRE #### [facility] [address] [place] [address] [facility] Point of Care testing , No Panel InformationOrdered By: Christiano Mccain on 09-20-2022 POC Estimated GFR > 60 [facility] Comment on above: GFR estimated refere nce range: According to KDOQI guidelines, <60 ml/min/1.73m2 is sufficient to diagnose a patient with chronic kidney disease. POC Estimated GFR Non- Amer > 60 [facility] Whole blood creatinine measu rementOrdered By: Christiano Mccain on 09-20-2022 Creatinine [Mass/Vol] 1.0 mg/dL Normal 0.6-1.3 [facility] Comment on above: ER/ESD physician is notified/shown all ISTAT results.Critical values may be confirmed by laboratory testing ifdeemed necessary by ER attending doctor. Result Comment: ER/E SD physician is notified/shown all ISTAT results. Critical values may be confirmed by laboratory testing if deemed necessary by ER attending doctor. Performed By: #### I SCRE #### [facility] [address] [place] [address] [facility] Point of Care testing , Lab Reportson 09-15-2022 Lab Reports [id number] .00CD:127 Normal [facility] RAD - Ultrasound Reporton RAD - Ultrasound Report [id number]#1 .00CD:127 Normal [facility] Pre-Certification Formon Pre-Certification Form [id number]# 1.00CD:127 Normal [facility] US SCROTUMon 09-09-2022 US SCROTUM EXAMINATION: US [...] by: NICO GRESHAM Date: 2022-09-09 12:44 Normal [facility] Ambulatory Visit Summaryon 1 Ambulatory Visit Summary PINGMONIQUE Thornton JR :1955 Visit Date:09/06/2022 Ambulatory Visit Instructions Your Diagnosis Elevated PSA Hydrocele Tests Performed Urnls Dip Stick Auto w/o Microscopy POC 73307 MRI Pelvis (Soft Tissue) w/ + w/o [...] with Christiano MCCAIN MD, URL When: Where: [address] [place] [address]- Medications What How Much When Instructions Unchanged [...] Urnls Dip Stick Auto w/o Microscopy POC 23412 (09/06/2022) Bilirubin Urine Dipstick - Negative Blood Urine Dipstick - Negative Glucose Urine Dipstick - Negative Ketones Urine Dipstick - Negative Leukocytes Urine Dipstick - Negative Nitrite Urine Dipstick - Negative Protein Urine Dipstick - Negative Specific [place] Urine Dipstick - 1.010 Urine Appearance Urine [...] of these risk factors: ? Being of -[place] descent. ? Having a family history of prostate cancer. ? If you are age 55?69, talk with your health care provider about your need for screening and how often screening should be done. ? If you are older than age 70, screening is not recommended. This is because the risks that screening can cause are greater than th (more content not included)... Normal [facility] Formson 09-06-2022 Forms [id number] .00CD:127 Normal [facility] Patient Educationon 09-06-20 22 Patient Education Oncology [...] of these risk factors: ? Being of -[place] descent. ? Having a family history of [...] Are older than age 55. ? Are -[place]. ? Have a father, brother, or uncle [...] Document R (more content not included)... Normal [facility] Physician Referralon 022 Physician Referral [id number] .00CD:127 Normal [facility] Screenson 09-06-2022 Screens [id number]#1 .00CD:127 [facility] PSA, FREE AND TOTAL RATIOon 08-01-2022 % Free PSA 11.9 % Normal [facility] Comment on above: Result Comment: The [...] men. Performed By: #### P OCGLUC #### [facility] [address] [place] [address] Dr. Kaela Krause Prostate specific Ag [Mass/Vol] 3.6 ng/mL Normal 0.0-4.0 [facility] Comment on above: Result Comment: Betsey barragan ECLIA methodology. . According to the [place] [employer], Serum PSA should decrease and [...] disease. Performed By: #### P OCGLUC #### [facility] [address] [place] [address] Dr. Kaela Krause PSA, Free 0.43 ng/mL Normal N/A [facility] Comment on above: Result Comment: Betsey barragan ECLIA methodology. Performed By: #### P OCGLUC #### [facility] [address] [place] [address] Dr. Kaela Krause INSULINon 07-31-2022 Insulin 10.0 uIU/mL Normal 2.6-24.9 [facility] Comment on above: Performed By: #### L ACT #### [facility] [address] [place] [address] Dr. Kaela Krause T4, T3U, FTI LABCORPon 07-31 Free Thyroxine Index 2.0 Normal 1.2-4.9 [facility] Comment on above: Performed By: #### T HYLC #### [facility] [address] [place] [address] Dr. Kaela Krause T3 Uptake 27 % Normal 24-39 [facility] Comment on above: Performed By: #### T HYLC #### [facility] [address] [place] [address] Dr. Kaela Krause T4 [Mass/Vol] 7.3 ug/dL Normal 4.5-12.0 [facility] Comment on above: Performed By: #### T HYLC #### [facility] [address] [place] [address] Dr. Kaela Krause CBC AUTO DIFFon 07-30-2022 BASO # 0.0 103/ul Normal 0.0-0.1 [facility] Comment on above: Performed By: #### L ACT #### [facility] [address] [place] [address] Dr. Kaela Krause Basophils/100 WBC (Bld) 0.6 % Normal 0.2-2.0 [facility] Comment on above: Performed By: #### L ACT #### [facility] [address] [place] [address] Dr. Kaela Krause EO # 0.2 103/ul Normal 0.0-0.7 [facility] Comment on above: Performed By: #### L ACT #### [facility] [address] [place] [address] Dr. Kaela Krause Eosinophils/100 WBC (Bld) 3.0 % Normal 0.9-7.0 [facility] Comment on above: Performed By: #### L ACT #### [facility] [address] [place] [address] Dr. Kaela Krause Erythrocyte distribution width (RBC) [Ratio] 14.0 % Normal 11.0-15.0 [facility] Comment on above: Performed By: #### L ACT #### [facility] [address] [place] [address] Dr. Kaela Krause Hematocrit (Bld) [Volume fraction] 43.6 % Normal 42.0-54.0 [facility] Comment on above: Performed By: #### L ACT #### [facility] [address] [place] [address] Dr. Kaela Krause Hemoglobin (Bld) [Mass/Vol] 14.0 g/dL Normal 14.0-18.0 [facility] Comment on above: Performed By: #### L ACT #### [facility] [address] [place] [address] Dr. Kaela Krause IG # 0.01 10e3/ul Normal 0.00-0.03 [facility] Comment on above: Performed By: #### L ACT #### [facility] [address] [place] [address] Dr. Kaela Krause IG % 0.2 % Normal 0.0-0.5 [facility] Comment on above: Performed By: #### L ACT #### [facility] [address] [place] [address] Dr. Kaela Krause LYMPH # 2.2 103/ul Normal 1.2-3.8 [facility] Comment on above: Performed By: #### L ACT #### [facility] [address] [place] [address] Dr. Kaela Krause Lymphocytes/100 WBC (Bld) 33.8 % Normal 20.5-60.0 [facility] Comment on above: Performed By: #### L ACT #### [facility] [address] [place] [address] Dr. Kaela Krause MANUAL DIFF REQ NO Normal [facility] Comment on above: Performed By: #### L ACT #### [facility] [address] [place] [address] Dr. Kaela Krause MCH (RBC) [Entitic mass] 27.7 pg Normal 25.9-34.0 [facility] Comment on above: Performed By: #### L ACT #### [facility] [address] [place] [address] Dr. Kaela Krause MCHC (RBC) [Mass/Vol] 32.1 g/dL Normal 29.9-35.2 [facility] Comment on above: Performed By: #### L ACT #### [facility] [address] [place] [address] Dr. Kaela Krause MCV (RBC) [Entitic vol] 86.2 fL Normal 80.0-94.0 [facility] Comment on above: Performed By: #### L ACT #### [facility] [address] [place] [address] Dr. Kaela Krause MONO # 0.5 103/ul Normal 0.3-0.8 [facility] Comment on above: Performed By: #### L ACT #### [facility] [address] [place] [address] [address] Kaela Krause Monocytes/100 WBC (Bld) 8.1 % Normal 1.7-12.0 [facility] Comment on above: Performed By: #### L ACT #### [facility] [address] [place] [address] [address] Kaela Krause NEUT # 3.6 103/ul Normal 1.4-6.5 [facility] Comment on above: Performed By: #### L ACT #### [facility] [address] [address] [address] Kaela Krause Neutrophils/100 WBC (Bld) 54.3 % Normal 43.0-75.0 [facility] Comment on above: Performed By: #### L ACT #### [facility] [address] [place] [address] Dr. Kaela Krause Platelet mean volume (Bld) [Entitic vol] 9.5 fL Normal 9.5-13.5 [facility] Comment on above: Performed By: #### L ACT #### [facility] [address] [place] [address] [address] Kaela Krause PLT 366 103/ul Normal 150-450 [facility] Comment on above: Performed By: #### L ACT #### [facility] [address] [place] [address] Dr. Kaela Krause RBC 5.06 106/ul Normal 4.70-6.10 [facility] Comment on above: Performed By: #### L ACT #### [facility] [address] [place] [address] [address] Kaela Krause WBC 6.6 103/ul Normal 4.0-11.0 [facility] Comment on above: Performed By: #### L ACT #### [facility] [address] [place] [address] [address] Kaela Krause GLYCOHEMOGLOBIN A1Con 2021 ADA RECOMMENDATION SEE BELOW Normal [facility] Comment on above: Result Comment: ADA RECOMMENDED LIMIT 4.0 - 6.0 ADA THERAPEUTIC TARGET < 7.0 ACTION SUGGESTED > 7.0 Performed By: #### C MP #### [facility] [address] [place] [address] [address] Kaela Krause Glucose [Mass/Vol] 123 mg/dL Normal [facility] Comment on above: Performed By: #### C MP #### [facility] [address] [place] [address] [address] Kaela Krause HbA1c (Bld) [Mass fraction] 5.9 % Normal 4.5-6.2 [facility] Comment on above: Performed By: #### C MP #### [facility] [address] [place] [address] Dr. Kaela Krause LIPID PROFILEon 07-30-2022 CHOL-HDL RATIO NORM SEE BELOW Normal [facility] Comment on above: Result Comment: 3.3 - 4.4 LOW RISK 4.4 - 7.1 AVERAGE RISK 7.1 - 11.0 MODERATE RISK >11.0 HIGH RISK Performed By: #### C MP #### [facility] [address] [place] [address] Dr. Kaela Krause Cholesterol [Mass/Vol] 170 mg/dL Normal <=[address] [facility] Comment on above: Performed By: #### C MP #### [facility] [address] [place] [address] Dr. Kaela Krause Cholesterol in HDL [Mass/Vol] 49 mg/dL Normal 40-60 [facility] Comment on above: Performed By: #### C MP #### [facility] [address] [place] [address] [address] Kaela Krause Cholesterol in LDL [Mass/Vol] 106.4 mg/dL Normal [facility] Comment on above: Performed By: #### C MP #### [facility] [address] [place] [address] Dr. Kaela Krause Cholesterol.total/Chol esterol in HDL [Mass ratio] 3.5 {ratio} Normal [facility] Comment on above: Performed By: #### C MP #### [facility] [address] [place] [address] Dr. Kaela Krause HDL NORMAL > or = 60 mg/dl - LO W CARDIOVASCULAR RISK <40 mg/dl - HIGH CARDIOVASCULAR RISK Normal [facility] Comment on above: Performed By: #### C MP #### [facility] [address] [place] [address] [address] Kaela Krause LDL CALC NORMAL SEE BELOW Normal [facility] Comment on above: Result Comment: <100 mg/dl OPTIMAL 100 - 129 mg/dl NEAR OR ABOVE OPTIMAL 130 - 159 mg/dl BORDERLINE HIGH 160 - 189 mg/dl HIGH >190 mg/dl VERY HIGH Performed By: #### C MP #### [facility] [address] [place] [address] [address] Kaela Krause Triglyceride [Mass/Vol] 73 mg/dL Normal <=150 [facility] Comment on above: Performed By: #### C MP #### [facility] [address] [place] [address] [address] Kaela Krause VLDL CALC 14.6 mg/dL Normal [facility] Comment on above: Performed By: #### C MP #### [facility] [address] [place] [address] [address] Kaela Krause PROF 14(COMP METB)on 022 Albumin [Mass/Vol] 3.8 g/dL Normal 3.4-5.0 [facility] Comment on above: Performed By: #### P OCGLUC #### [facility] [address] [place] [address] [address] Kaela Krause Albumin/Globulin [Mass ratio] 1.1 {ratio} Normal [facility] Comment on above: Performed By: #### P OCGLUC #### [facility] [address] [place] [address] [address] Kaela Krause ALP [Catalytic activity/Vol] 50 U/L Normal 46-116 [facility] Comment on above: Performed By: #### P OCGLUC #### [facility] [address] [place] [address] [address] Kaela Krause ALT [Catalytic activity/Vol] 24 U/L Normal 16-63 [facility] Comment on above: Performed By: #### P OCGLUC #### [facility] [address] [place] [address] [address] Kaela Krause Anion gap [Moles/Vol] 11.9 mmol/L Normal [facility] Comment on above: Performed By: #### P OCGLUC #### [facility] [address] [address] [address] Kaela Krause AST [Catalytic activity/Vol] 12 U/L Critically low 15-37 [facility] Comment on above: Performed By: #### P OCGLUC #### [facility] [address] [place] [address] [address] Kaela Krause Bilirubin [Mass/Vol] 0.4 mg/dL Normal 0.2-1.0 [facility] Comment on above: Performed By: #### P OCGLUC #### [facility] [address] [place] [address] [address] Kaela Krause Calcium [Mass/Vol] 8.9 mg/dL Normal 8.5-10.1 [facility] Comment on above: Performed By: #### P OCGLUC #### [facility] [address] [place] [address] [address] Kaela Krause Chloride [Moles/Vol] 107 mmol/L Normal 98-107 [facility] Comment on above: Performed By: #### P OCGLUC #### [facility] [address] [place] [address] [address] Kaela Krause CO2 [Moles/Vol] 27.3 mmol/L Normal 21.0-32.0 [facility] Comment on above: Performed By: #### P OCGLUC #### [facility] [address] [place] [address] [address] Kaela Krause Creatinine [Mass/Vol] 1.04 mg/dL Normal 0.70-1.30 [facility] Comment on above: Performed By: #### P OCGLUC #### [facility] [address] [place] [address] [address] Kaela Krause EGFR-AF GUATEMALAN >60 Normal >=60 [facility] Comment on above: Performed By: #### P OCGLUC #### [facility] [address] [place] [address] [address] Kaela Kruase EGFR-NON AF GUATEMALAN >60 Normal >=60 [facility] Comment on above: Performed By: #### P OCGLUC #### [facility] [address] [place] [address] [address] Kaela Krause Globulin (S) [Mass/Vol] 3.6 g/dL Normal [facility] Comment on above: Performed By: #### P OCGLUC #### [facility] [address] [place] [address] [address] Kaela Krause Glucose [Mass/Vol] 113 mg/dL Critically high 74-106 [facility] Comment on above: Performed By: #### P OCGLUC #### [facility] [address] [place] [address] [address] Kaela Krause Potassium [Moles/Vol] 4.2 mmol/L Normal 3.5-5.1 [facility] Comment on above: Performed By: #### P OCGLUC #### [facility] [address] [place] [address] [address] Kaela Krause Protein [Mass/Vol] 7.4 g/dL Normal 6.4-8.2 [facility] Comment on above: Performed By: #### P OCGLUC #### [facility] [address] [place] [address] Dr. Kaela Krause Sodium [Moles/Vol] 142 mmol/L Normal 136-145 [facility] Comment on above: Performed By: #### P OCGLUC #### [facility] [address] [address] [address] Kaela Krause Urea nitrogen [Mass/Vol] 21.0 mg/dL Critically high 7.0-18.0 [facility] Comment on above: Performed By: #### P OCGLUC #### [facility] [address] [address] [address] Kaela Krause Urea nitrogen/Creatinine [Mass ratio] 20.2 mg/mg Normal [facility] Comment on above: Performed By: #### P OCGLUC #### [facility] [address] [address] [address] Kaela Krause TSHon 07-30-2022 TSH 3.249 uIU/mL Normal 0.358-3.740 [facility] Comment on above: Performed By: #### P OCGLUC #### [facility] [address] [address] [address] Kaela Krause Vital Signs Date Time Vital Sign Value Performing Clinician Faci lity 12-13-2022 11:06-0500 Blood Pressure Location Christiano MCCAIN [facility] 12-13-2022 11:06-0500 Diastolic blood pressure 74 mm[Hg] Christiano MCCAIN [facility] 12-13-2022 11:06-0500 Heart rate 80 /min Christiano MCCAIN [facility] 12-13-2022 11:06-0500 Respiratory rate 16 /min Christiano MCCAIN [facility] 12-13-2022 11:06-0500 Systolic blood pressure 128 mm[Hg] Christiano MCCAIN [facility] 09-06-2022 10:01-0400 Blood Pressure Location Christiano MCCAIN [facility] 09-06-2022 10:01-0400 Diastolic blood pressure 84 mm[Hg] Christiano MCCAIN [facility] [facility] 09-[facility]-2022 10:01-0400 Heart rate 62 /min Christiano MCCAIN [facility] 09-06-2022 10:01-0400 Respiratory rate 16 /min Christiano MCCAIN [facility] 09-06-2022 10:01-0400 Systolic blood pressure 127 mm[Hg] Christiano MCCAIN [facility] Encounters Encounter Date Encounter Type Care Provider Facility Start: 12-13-2022 End: 12-14-2022 ambulatory MD Christiano MCCAIN Facility:[facility] [place] Start: 12-13-2022 End: 12-13-2022 Patient encounter procedure Christiano MCCAIN [facility] Start: 11-28-2022 End: 12-01-2022 Evaluation and management of inpatient DR JAZMINE BRADFORD Facility: Start: 11-26-2022 End: 11-27-2022 ambulatory MD Christiano MCCAIN Facility:[facility] Start: 09-20-2022 End: 09-20-2022 ambulatory Jazmine Bradford Facility:[facility] Start: 09-20-2022 End: 09-20-2022 ambulatory MD Jazmine Bradford Work Phone: [facility] Work Phone: Start: 09-20-2022 End: 09-20-2022 Patient encounter procedure MD Jazmine Bradford Work Phone: [facility] Start: 09-09-2022 End: 09-10-[address] CHRISTIANO MCCAIN Facility:[facility] Start: 09-06-2022 End: 09-07-2022 ambulatory MD Christiano MCCAIN Facility:[facility] [place] Start: 09-06-2022 End: 09-06-2022 Patient encounter procedure Christiano MCCAIN [facility] Start: 08-05-2022 ambulatory MD Christiano MCCAIN Fac ility:[facility] Start: 07-30-2022 End: 07-31-[address] JAZMINE BRADFORD Facility:[facility] Procedures Date Procedure Procedure Detail Performing Clinician Start: 11-26-2022 Transrectal biopsy o f prostate using ultrasound guidance Christiano MCCAIN Start: 07-30-[address] VIOLETA BRADFORD Comment on above: Performed By: #### C #### [facility] [address] [place] [address] Dr. Kaela Krause Start: 09-28-2019 Hernia repair Christiano NEWMAN Comment on above: incisional Start: 06-25-2019 Colonoscopy Christianoskye CUEVAS Arthroscopy of knee right Pa kofi MCCAIN Open repair of ingui nal hernia Christiano MCCAIN Repair of umbilical hernia P berhane MCCAIN Plan of Treatment Date Care Activity Detail Author Start: 09-20-2022 MR Prostate WO and W contrast IV [facility] Start: 09-20-2022 MR prostate wo/w con MR prostate wo/ w con [facility] Immunizations Immunization Date Immunization Notes Care Provider Fa alex 02-13-2021 SARS-CoV-2 (COVID-19 ) mRNA-1273 vaccine Chrisitano MCCAIN [facility] Comment on above: Result Comment: 202203: 65 01-16-2021 SARS-CoV-2 (COVID-19 ) mRNA-1273 vaccine Christiano MCCAIN [facility] 09-07-2020 influenza virus vaccine, unspecified formulation Christianoskye MCCAIN [facility] 11-10-2018 influenza virus vaccine, unspecified formulation Christianoskye MCCAIN [facility] Payers Date Payer Category Payer Self-pay [id number] 1959 Medicare [id number] 1959 Private Health Insurance 101 [id number] 1955 Unknown [id number] 2.16.84 [id number] 1955 Unknown [id number] 2.16.84 [id number] 1955 Unknown [id number] 2.16.84 [id number] 1955 Unknown [id number] 2.16.8 [id number] 1955 Unknown [id number] 2.16.8 [id number] 1955 Unknown [id number] 2.16.8 [id number] 1955 Unknown [id number] 2.16.8 [id number] Medicare Medicare [id number] Unknown [id number] 2.16.8 [id number] Social History Date Type Detail Facility Start: 08-18-2020 End: 09-06-2022 Tobacco smoking status Never smoked tobacco (finding) [facility] Sex Assigned At Male [facility] Start: 1955 Sex Assigned At Male [facility] Functional Status Date Assessment Result Facility 12-13-2022 Functional Status N/A [facility] 09-06-2022 Functional Status N/A [facility] Hospital Discharge instructions 12-13-2022 Note Date [...] one of these risk factors: ?Being of -[place] descent. ?Having a family history of prostate [...] you: Are older than age 55. Are -[place]. Have a father, brother, or uncle who [...] 08/07/2018 Document Revised: 10/09/2018 Document Reviewed: 08/07/2018 [employer] Patient Education 2020 So Protect Me. Follow Up Care 11/13/2022 13:46:12 With:KALYN CHAKRABORTY, Christiano Thornton, URL Address: [address] [place] [id number]- When: Unknown [facility] History and physical note 11-27-2022 Note Date & Type Note Facility 11-27-2022 Note [id number] 7#[id number]:127 [facility] Clinical Note 09-06-2022 Note Date & Type [...] When Contact Information Christiano MCCAIN MD, [address] [place] [address]- Additional Instructions: MRI & scrotal US Patient [...] Repair of um (more content not included)... [facility] Comment on above: Result Comment: Elec tronically [...] one of these risk factors: ?Being of -[place] descent. ?Having a family history of prostate [...] you: Are older than age 55. Are -[place]. Have a father, brother, or uncle who [...] 08/07/2018 Document Revised: 10/09/2018 Document Reviewed: 08/07/2018 [employer] Patient Education 2020 So Protect Me. Follow Up Care 08/05/2022 14:49:20 With:KALYN CHAKRABORTY, Christiano Thornton, URL Address: [address] [place] [id number]- When: Unknown [facility] Evaluation + Plan note Note Date & Type Note Facility Evaluation + Plan note No data available for this section [facility] Evaluation note Note Date & Type Note Facility Evaluation [facility] Progress note Note Date & Type Note Facility Progress note No data available for this section [facility] Chief Complaint and Reason for Visit [...] section and content) DATE CREATED AUTHOR 10/01/2022 [facility] DATE CREATED AUTHOR AUTHOR'S ORGANIZ ATION 12/06/2022 [facility] DATE CREATED AUTHOR AUTHOR'S ORGANIZ ATION 12/17/2022 [facility] FOR RECORDS PERTAINING TO PATIENTS WHO ARE [...] BE BASED ON THE PRIMARY CLINICAL RECORDS. [employer] provides no warranty or guarantee of the accuracy or completeness of information in this document.
[2024-08-20 11:08] LABS: Anion Gap 10.9; BUN Creatinine Ratio 15.8; Calcium 9.4 mg/dL (8.5-10.1); Carbon Dioxide 29.1 mmol/L (21.0-32.0); Chloride 103 mmol/L (98-107); Estimated GFR (African America >60 (>=60 mL/min/1.73m^2); Estimated GFR (Non-African Ame >60 (>=60 mL/min/1.73m^2); Glucose 115 mg/dL (74-106); Sodium 139 mmol/L (136-145)
== END 2024-08-20 10:41 | disposition home or self-care (01) ==
LOC: LAB 10:44
PROVIDERS: PCP Family Medicine; Visit Provider Student in an Organized Health Care Education/Training Program
DX: N17.9 Acute kidney failure, unspecified (principal)
CPT/HCPCS: 36415; 80048

== ENCOUNTER 2024-09-13 12:37 | Outpatient (OUT) | payer MEDICARE, SELFPAY ==
--- NOTE | 2024-09-13 12:43 | XR_ITS ---
[address] [address] Patient Name: MONIQUE FENG MRN: [id number] date: 1955 Sex: M Assigned Patient Location: [place] Current Patient Location: [place] Accession/Order Number: [id number] Exam Date: 09/13/2024 12:55 Report Date: 09/13/2024 14:06 At the request of: YING GALINDO Procedure: XR IVP w KUB EXAMINATION: XR IVP w KUB HISTORY: ureteral stone COMPARISON: 08/17/2024 TECHNIQUE: After obtaining patient consent a tooling engineering tech image was obtained followed by injection of 100cc of Omnipaque 300 IV contrast. Immediate nephrographic images were obtained. Corticomedullary and urographic phase images were obtained at 5, 10, 15 and 20 minutes. 15 minute oblique images were also obtained. FINDINGS: KIDNEY/URETER - RIGHT: No visible calcifications. KIDNEY/URETER - LEFT: Suspected 5 mm distal ureterolith on tooling engineering tech image PELVIS: No visible ureteral calcifications. Any visible calcifications favor phleboliths. NEPHROGRAPHIC PHASE: Asymmetric enlargement of the left kidney CORTICOMEDULLARY: Normal right. Moderate to severe left hydroureteronephrosis UROGRAPHIC PHASE: Moderate to severe left ureteral dilatation extending down to the left distal sacrum BLADDER: Normal size and contour. BOWEL: No abnormal dilation or deviation. BONES: No acute abnormality. Moderate degenerative changes with dextrocurvature OTHER: Negative. No abnormal gaseous collections. XR/XR IVP w KUB IMPRESSION: 5 mm distal left ureterolith with moderate to severe obstructive uropathy Electronically authenticated by: NICO GRESHAM Date: 09/13/2024 14:06
== END 2024-09-13 12:38 | disposition home or self-care (01) ==
LOC: FL 12:39
PROVIDERS: PCP Family Medicine; Visit Provider Urology
DX: N13.2 Hydronephrosis with renal and ureteral calculous obstruction (principal)
CPT/HCPCS: 74400; Q9967

== ENCOUNTER 2024-10-25 09:29 | Outpatient (OUT) | payer MEDICARE, SELFPAY ==
--- OUTSIDE RECORDS SUMMARY | 2024-10-25 09:49 | XMS_ITS | CCD ---
Author Organization [facility] Care Team Providers Care Transport Operations Inspector Name Role Phone Jazmine Bradford Primary Care Physician [phone] MD Jazmine Bradford Primary Care Provider [phone] MD Christiano Mccain Attending Provider [phone] Jazmine Bradford Primary Care Unavailable Christiano Mccain Attending Unavailable Christiano Mccain Admitting Unavailable JOHN, DR LUCERO Consulting Unavailable HOY, DR LUCERO Primary Care Unavailable HOJt, DR LUCERO Admitting Unavailable HOJt, DR LUCERO Attending Unavailable NADERER, DR SREEKANTH Patel Consulting Unavailable MARKER, DR GARSIA Consulting Unavailable SAMANTHA, KRISTIN Consulting Unavailable MARIKA, JESUS Consulting Unavailable MORENO, CELE Consulting Unavailable HOY, DR LUCERO Consulting Unavailable HOY, DR LUCERO Primary Care Unavailable HOY, DR LUCERO Admitting Unavailable HOY, DR LUCERO Attending Unavailable HERMELINDA, DR MEDELLIN Admitting Unavailable MCCAIN, DR MEDELLIN Attending Unavailable MCCAIN, DR MEDELLIN Consulting Unavailable JOHN, DR LUCERO Primary Care Unavailable MP, DR NICO Felipe Consulting Unavailable Miky GALINDO Admitting Unavailable Miky GALINDO Referring Unavailable Miky GALINDO Attending Unavailable COOKMiky Admitting Unavailable COOKMiky Attending Unavailable COOKMiky Attending Unavailable Miky GALINDO Attending Unavailable Medications Current Medications Medication Drug Class(es) Dates Sig (Normalized) Sig (Original) ascorbic acid 1000 mg oral tablet (6 sources) Vitamin C Start: 08-16-2020 take 1 g by mouth once daily Ascorbic Acid (Vitamin C) (Vitamin C) 1,000 mg Tablet Active 1 GM PO Daily August 15, 2020 11:00pm Start: 06-17-2019 take 500 mg by mouth once cathi y Vitamin C 500 mg, Oral, Daily, Refills(s) 0, Prophylaxis Start Date: 06/17/19 Status: Ordered aspirin 81 mg delayed release oral tablet (6 sources) Platelet Aggregation Inhibitor, Nonsteroidal Anti-inflammatory Drug [...] Status: Ordered atenolol 25 mg oral tablet (6 sources) beta-Adrenergic Brandt Start: 06-17-2019 take 1 tablet by mouth once daily atenolol 25 mg Tab 25 mg = 1 tab(s), Oral, Daily, Refills(s) 0, High blood pressure Start Date: 06/17/19 Status: Ordered cefdinir 300 mg oral capsule (2 sources) Cephalosporin Antibacterial Start: 12-13-2022 cefdinir 300 mg Cap Refills(s) 0 Start Date: 12/13/22 Status: Ordered metFORMIN hydrochloride 500 mg oral tablet (6 sources) Biguanide Start: 06-17-2019 take 1 tablet by mouth twice daily metformin 500 mg Tab 500 mg = 1 tab(s), Oral, BID, Refills(s) 0, High blood sugar Start Date: 06/17/19 Status: Ordered Multi Vitamins oral tablet (5 sources) Start: 06-17-2019 take 1 tablet by mouth once daily Multi Vitamins oral tablet 1 tab(s), Oral, Daily, Refill(s) 0, Prophylaxis Start Date: 06/17/19 Status: Ordered omeprazole 20 mg delayed release oral capsule (6 sources) Proton Pump Inhibitor Start: 08-16-2020 take 20 mg by mouth once daily at bedtime Omeprazole Active 20 MG PO Daily at bedtime August 15, 2020 11:00pm Start: 06-17-2019 take 20 mg by mouth once daily omeprazole 20 mg, Oral, Daily, Refills(s) 0, Control of stomach acid Start Date: 06/17/19 Status: Ordered tamsulosin hydrochloride 0.4 mg oral capsule (1 source) alpha-Adrenergic Brandt Start: 09-16-2024 take 1 capsule by mouth once daily tamsulosin 0.4 mg Cap 0.4 mg = 1 cap(s), Oral, Daily, # 30 cap(s), Refills(s) 0, Pharmacy: [facility]/pharmacy #[id number], 175, cm, 09/08/24 10:14:00 EDT, Height/Length Dosing, 86.2, kg, 09/08/24 10:14:00 EDT, Weight Dosing Start Date: 09/16/24 Status: Ordered Problems Active Problems Problem Classification Problem Date Documented Date Episodic/Chronic Abdominal hernia (10 sources) Incisional hernia; Translations: [Umbilical hernia] 06-17-2019 Episodic Calculus of urinary tract (3 sources) Kidney stone; Translations: [Calculus of kidney] Onset: 09-08-2024 Episodic Complications of surgical procedures or medical care (2 sources) Infection following a procedure, unspecified, initial encounter; Translations: [Sepsis following a procedure, initial encounter] Onset: 12-05-2022 Episodic Diabetes mellitus without complication (6 sources) Type 2 diabetes mellitus; Translations: [Type 2 diabetes mellitus without complications] Onset: 12-05-2022 06-17-2019 Chronic Disorders of lipid metabolism (4 sources) Hyperlipidemia, unspecified; Translations: [HYPERLIPIDEMIA UNSPECIFIED] Onset: 07-30-2022 Chronic Essential hypertension (6 sources) Hypertensive disorder; Translations: [Essential (primary) hypertension] Onset: 07-31-2022 06-17-2019 Chronic Hyperplasia of prostate (11 sources) Benign prostatic hypertrophy without outflow obstruction; Translations: [Benign prostatic hyperplasia without lower urinary tract symptoms] Onset: 12-13-2022 Chronic Inflammatory conditions of male genital organs (1 source) Acute prostatitis; Translations: [ACUTE PROSTATITIS] Onset: 12-05-2022 Episodic Other aftercare (1 source) long-term (current) use of aspirin; Translations: [CORRECTION CURRENT USE OF ASPIRIN] Onset: 12-05-2022 Episodic Other aftercare (1 source) long-term (current) use of oral hypoglycemic drugs; Translations: [CORRECTION USE ORAL HYPOGLYCEMIC DX] Onset: 12-05-2022 Episodic Other aftercare (1 source) Other halfway (current) drug therapy; Translations: [OTH PUNCHING MACHINE OPERATOR CURRENT DRUG THERAPY] Onset: 12-05-2022 Episodic Other diseases of kidney and ureters (1 source) Urinary tract obstruction; Translations: [Hydronephrosis with renal and ureteral calculous obstruction] Onset: 09-08-2024 Episodic Other lower respiratory disease (1 source) Acute respiratory distress; Translations: [ACUTE RESPIRATORY DISTRESS] Onset: 12-05-2022 Episodic Other male genital disorders (2 sources) Hydrocele of testis; Translations: [Hydrocele, unspecified] Onset: 09-06-2022 Episodic Other male genital disorders (5 sources) Disorder of male genital organ 09-06-2022 Episodic Other male genital disorders (4 sources) Hydrocele, unspecified; Translations: [HYDROCELE UNSPECIFIED] Onset: 09-09-2022 Episodic Other screening for suspected conditions (not mental disorders or infectious disease) (10 sources) Raised prostate specific antigen; Translations: [Elevated prostate specific antigen [PSA]] Onset: 07-31-2022 Episodic Residual codes; unclassified (5 sources) Increased body mass index 09-06-2019 Episodic Septicemia (except in labor) (3 sources) Sepsis, unspecified organism; Translations: [Severe sepsis without septic shock] Onset: 11-28-2022 Episodic Unclassified (5 sources) Screening status 06-17-2019 Unclassified (2 sources) Obstructive hydronephrosis 09-08-2024 Past or Other Problems Problem Classification Problem Date Documented Da te Episodic/Chronic Diabetes mellitus without complication (1 source) Other abnormal glucose; Translations: [OTHER ABNORMAL GLUCOSE] Onset: 07-31-2022 Episodic Results Test Name Value Interpretation Reference Range Facility [facility] 10-05-2024 US Renal Exam Date/Time: 10/01/2024 09:38 EST Reason for Exam: Kidney stone;Other (please specify) Report IMPRESSION: Nonobstructing bilateral renal calculi. Right renal cyst. CLINICAL HISTORY: Kidney stone. COMPARISON: NONE. Findings: Right kidney measures 10.5 x 5.7 x 4.7 cm. Left kidney measures 10.5 x 4.4 x 5.2 cm. Both kidneys normal in size, shape, and echogenicity No cortical thinning, masses, hydronephrosis bilaterally. Right kidney shows 4 mm calculus, mid to lower pole, with 1.2 x 0.9 x 1.46 cm cyst, in upper pole. Left kidney shows 9 mm calculus in lower pole, with positive twinkle effect on color flow. Ordering Provider: Miky GALINDO FINAL REPORT Dictated: 10/05/2024 12:47 pm Fab Curiel MD Signed (Electronic Signature): 10/05/2024 12:47 pm Signed by: Fab Curiel MD Transcribed by: KEHINDE Technologist: NIDIA Normal [facility] XR Abdomen 1 Viewon 10-05-20 24 XR Abdomen 1 View Exam Date/Time: 10/01/2024 09:55 EST Reason for Exam: N20.0;Kidney stone Report IMPRESSION: CAUDAL LEFT URETERAL/URINARY BLADDER CALCULI, NOT PRESENT ON PRIOR STUDY. CLINICAL HISTORY: Kidney stone, N20.0 COMPARISON: 09/03/2024. FINDINGS: Gas and copious stool in colon. No focal or diffuse small bowel dilatation or mass effect. No abnormal calcification overlying region of kidneys or ureters. Calcifications measuring up to 4 mm now identified overlying left pelvic inlet, in region of left urinary bladder. No phleboliths demonstrated in this region on prior study. Degenerative change lower lumbar spine. Ordering Provider: Miky GALINDO FINAL REPORT Dictated: 10/05/2024 12:51 pm Fab Curiel MD Signed (Electronic Signature): 10/05/2024 12:51 pm Signed by: Fab Curiel MD Transcribed by: KEHINDE Technologist: DARLENE Technical Comments Radiation Dose: Ka,r in mGy = . DAP = . Normal [facility] Ambulatory Visit Summaryon 1 Ambulatory Visit Summary Ambulatory Visit Summary MONIQUE FENG JR :1955 Visit Date:09/08/2024 Ambulatory Visit Instructions Your Diagnosis Ureteral stone with hydronephrosis Kidney stone Elevated PSA Prostate nodule Tests Performed XR Abdomen 1 View -- Results Pending -- XR IVP -- Results Pending -- Please visit your patient portal for your results or contact your primary care physician. Your Care Team Attending Physician - Miky GALINDO MD Primary Care Physician - Jazmine Bradford [...] hernia, Repair of umbilical hernia. Discharge Vitals Blood Pressure 140/82 Height 175 cm Height 69 in Weight 86.2 kg Weight 189.64 lb BMI 28.15 What to do next Scheduled Follow-Up Appointments Friday. 2024 8:15 AM EDT With: MATEO CHAKRABORTY, Miky Haynes Where: [facility] [address] [address]- You Need to Schedule the Following Appointments Follow Up with HERMELINDA CHAKRABORTY, MACEY Nash When: Where: [address] [place] [id number]- Medications What How Much When Instructions Unchanged [...] Elevated PSA HTN (hypertension) Hydrocele Incisional hernia Kidney stone Prostate nodule Umbilical hernia Ureteral stone with hydronephrosis Patient Survey You may receive a survey via text or e-mail asking about your office visit. Please share your experience with us by completing your survey. We appreciate your feedback and thank you for choosing us for your care. Education Materials Intravenous Pyelogram An intravenous pyelogram is an X-ray of the urinary tract. The urinary tract is the system through which pee (urine) travels. This tract includes the kidneys, ureters, and bladder. An intravenous pyelogram can help your health care provider find problems, such as: ??? Kidney stones. ??? Bladder stones. ??? An enlarged prostate. ??? Tumors. Tell a health care provider about: ??? Any allergies you have. ??? All medicines you are taking, including vitamins, herbs, eye drops, creams, and [id number]-[id number] medicines. ??? Any problems you or family members have had with anesthesia. ??? Any bleeding problems you have. ??? Any surgeries you have had. ??? Any medical conditions you have. ??? Whether you are or may be . What are the risks? Your provider will talk with you about risks. These may include: ??? Nausea. ??? An allergic reaction to the dye that is used during the procedure. What happens before the procedure? Follow instructions from your provider about eating or drinking restrictions. ??? Follow instructions from your provider about preparing for the test by taking an oral bowel prep. ??? Ask your provider about changing or stopping your regular medicines. These include any diabetes medicines or blood thinners you take. ??? You may need to remove glasses, jewelry, and any other metal objects. ??? You may be asked to put on a hospital gown. What happens during the procedure? You will lie down on an exam table. ??? An IV will be inserted into one of your veins. ??? A contrast dye will be injected through the IV. This dye will help your provider see the urinary tract better on the X-rays. When the dye enters your body, you may feel warm or have a strange taste in your mouth. The feeling will not last long. ??? A agriculture laboratory technician will take X-rays. To make the X-ra (more content not included)... Normal [facility] Urology Office/Clinic Noteon 09-08-2024 Urology Office/Clinic Note Urology Office/Clinic Note Chief Complaint follow up to er HPI Staff 69 yo male here for ER f/up. Dr. Mccain pt. Last seen 12/13/22. Pt was to f/up PRN. Previous dx: elevated PSA, BPH wo LUTS, prostate nodule, hydrocele. Pt presented to [facility] ER 08/17/24 L flank pain and gross hematuria. CT AP wo con [facility]. Labs ~Cr 1.31, eGFR >60 KUB 09/03/24 [facility] - no stones. patient states he was straining urine until Friday and did not see any stones pass Dysuria: no Incomplete bladder emptying: no Hematuria: pt. has been having intermittent gross hematuria since er visit Frequency: no Urgency: no Nocturia: 1x Stream: good stream Leaking: no Post void dripping: no Wearing pads/ Depends: no Urge incontinence: no Stress incontinence: no Incontinence without Sensory Awareness: no Abdominal pain: no Flank pain: did have lower left flank pain went away about 1 day after being seen at ER Sexual complaints: no History of Present Illness Tests reviewed: reviewed UA, CT, labs, UA, ER notes. I have reviewed the previous health record information and history for this patient from Dr. Mccain. I have reviewed and verified the staff HPI to be accurate for this encounter. There have been no associated fever, chills, flank pain, or blood in the urine. Denies any urinary infections since last encounter. Review of Systems PHQ Score Initial Depression Screen Score: 0 SCORE ROS - Provider Constitutional: denies weight loss, denies hot flashes. Eyes: denies eye problems. Gastrointestinal: denies nausea, denies vomiting. Cardiovascular: denies chest pain or angina. Integumentary: no dryness Musculoskeletal: denies musculoskeletal symptoms. ENMT: denies otolaryngeal symptoms. Respiratory: no shortness of breath. Heme/Lymph: denies easy bleeding tendency, denies easy bruising tendency. Psychiatric: no confusion, no anxiety. Genitourinary: See HPI. Physical Exam Vitals & Measurements BP: 140/82 HT: 69 in HT: 175 cm WT: 86.2 kg WT: 189.64 lb BMI: 28.15 General Appearance: alert, no distress, well nourished, well developed male. Assessment/Plan Dr. Mccain pt. Last see 12/13/22. Pt was to follow up as needed at that point. Portions of this record may have been created with voice recognition artificial intelligence software, specifically [employer], [employer] and or [employer]. Substitutions may have occurred due to the inherent limitations of voice recognition and artificial intelligence software. 1. Ureteral stone with hydronephrosis (N13.2: Hydronephrosis with renal and ureteral calculous obstruction) Pt presented to [facility] ER 08/17/24 L flank pain and gross hematuria. CT AP wo con [facility] - Mild left hydroureteronephrosis extending to a 5.4 proximal ureterolith. Labs ~Cr 1.31, eGFR >60 KUB 09/03/24 [facility] - no stones. Pt states he had been straining his urine for approximately a week and did not notice a stone. Has not been straining his urine lately. Pt states left flank pain resolved the day after ER visit. UA today shows large blood. Reports he has been having intermittent gross hematuria since ER visit. Last episode was 1 wk ago. Recommended a follow up IVP or CT to ensure stone passed. Pt agrees with plan. Pt understands he may require surgical management if stone is present. Otherwise pt to follow up with KUB in 6-12 months. Discussed metabolic workup. -Schedule IVP @ [facility], pt to be called with results -Follow up in 6 mos w/ KUB if IVP neg 2. Kidney stone (N20.0: Calculus of kidney) CT AP wo con [facility] - 4 mm nonobstructing R nephrolith. Asymmetric enlargement of the L kidney with minimal perinephric stranding. Additional punctate L nephrolith. See #1. 3. Elevated PSA (R97.20: Elevated prostate specific antigen [PSA]) PSA: 08/03/20 - 3.15 10/08/21 - 3.61 07/30/22 - 3.6 & 11.9%, simple PSA 4.76 10/24/23 - 3.62 No family hx of prostate CA. MRI of prostate 09/20/22 shows no evidence of lymphadenopathy. Prostate volume 31 mL. MRI was negative for malignancy, BPH changes. S/p TRUS/bx 11/26/22. Path report negative for prostate cancer. Pt presented to [facility] ER on 11/27/22 due to fever. Pt was admitted for 4 days due to sepsis. Tx'd w/ Cefdinir. Last office note with Dr. Mccain 12/13/22 ~Prefers to follow up PRN. Sees primary care twice a year. -PCP managing PSA 4. Prostate nodule (N40.2: Nodular prostate without lower urinary tract symptoms) R sided nodularity found, base to apex on previous exam. Biopsy was neg for prostate cancer. See #3. This patient had a 5 mm left proximal ureteral stone which had caused intermittent flank pain. He was sent home with a urine strainer and strain for about a week with no stones passed. He said no pain since but about a week and a half ago he did have some hematuria grossly. I viewed the most recent KUB demonstrating no obvious calculi along the proposed course of the left ureter. Difficult to see the 1 mm of punctate stone on the left (more content not included)... Normal [facility] Comment on above: Result Comment: Elec tronically Signed By: Miky GALINDO MD\.br\Date and Time Signed: 09/08/24 10:43 EDT\.br\Electronically Co-Signed By: Malika Laird\.br\Date and Time Co-Signed: 09/08/24 10:41 EDT XR Abdomen 1 Viewon 09-06-20 XR Abdomen 1 View Exam Date/Time: 09/03/2024 10:55 EDT Reason for Exam: N20.0 Calculus of kidney;Kidney stone Report IMPRESSION: NONSPECIFIC ABDOMEN. CLINICAL HISTORY: Kidney stone, N20.0 Calculus of kidney COMPARISON: NONE. FINDINGS: Gas and stool in colon. Gas in small bowel. No focal or diffuse small bowel dilatation. No mass effect. Metallic artifacts identified overlying left iliac wing and sacrum. Ordering Provider: Miky GALINDO FINAL REPORT Dictated: 09/06/2024 10:06 am Fab Curiel MD Signed (Electronic Signature): 09/06/2024 10:06 am Signed by: Fab Curiel MD Transcribed by: KEHINDE Technologist: BERNY Technical Comments Radiation Dose: Ka,r in mGy = . DAP = . Normal [facility] CBC AUTO DIFFon 12-01-2022 BASO # 0.0 103/ul Normal 0.0-0.[address] [facility] Comment on above: Performed By: #### C MP #### [facility] [address], [place] [address] Dr. Kaela Krause Basophils/100 WBC (Bld) 0.5 % Normal 0.2-2.[address] [facility] Comment on above: Performed By: #### C MP #### [facility] [address], [place] [address] Dr. Kaela Krause EO # 0.1 103/ul Normal 0.0-0.7 [facility] Comment on above: Performed By: #### C MP #### [facility] [address] [place] [address] Dr. Kaela Krause Eosinophils/100 WBC (Bld) 3.3 % Normal 0.9-7.0 [facility] Comment on above: Performed By: #### C MP #### [facility] [address] [place] [address] Dr. Kaela Krause Erythrocyte distribution width (RBC) [Ratio] 14.3 % Normal 11.0-15.0 [facility] Comment on above: Performed By: #### C MP #### [facility] [address] [place] [address] Dr. Kaela Krause Hematocrit (Bld) [Volume fraction] 33.7 % Critically low 42.0-54.0 [facility] Comment on above: Performed By: #### C MP #### [facility] [address] [place] [address] Dr. Kaela Krause Hemoglobin (Bld) [Mass/Vol] 11.9 g/dL Critically low 14.0-18.0 [facility] Comment on above: Performed By: #### C MP #### [facility] [address] [place] [address] Dr. Kaela Krause IG # 0.02 10e3/ul Normal 0.00-0.03 [facility] Comment on above: Performed By: #### C MP #### [facility] [address] [place] [address] Dr. Kaela Krause IG % 0.5 % Normal 0.0-0.5 [facility] Comment on above: Performed By: #### C MP #### [facility] [address] [place] [address] Dr. Kaela Krause LYMPH # 1.1 103/ul Critically low 1.2-3.8 [facility] Comment on above: Performed By: #### C MP #### [facility] [address] [place] [address] Dr. Kaela Krause Lymphocytes/100 WBC (Bld) 27.8 % Normal 20.5-60.0 [facility] Comment on above: Performed By: #### C MP #### [facility] [address] [place] [address] Dr. Kaela Krause MANUAL DIFF REQ NO Normal [facility] Comment on above: Performed By: #### C MP #### [facility] [address] [place] [address] Dr. Kaela Krause MCH (RBC) [Entitic mass] 27.4 pg Normal 25.9-34.0 [facility] Comment on above: Performed By: #### C MP #### [facility] [address] [place] [address] Dr. Kaela Krause MCHC (RBC) [Mass/Vol] 35.3 g/dL Critically high 29.9-35.2 [facility] Comment on above: Performed By: #### C MP #### [facility] [address] [place] [address] Dr. Kaela Krause MCV (RBC) [Entitic vol] 77.5 fL Critically low 80.0-94.0 [facility] Comment on above: Performed By: #### C MP #### [facility] [address] [place] [address] Dr. Kaela Krause MONO # 0.5 103/ul Normal 0.3-0.8 [facility] Comment on above: Performed By: #### C MP #### [facility] [address] [place] [address] Dr. Kaela Krause Monocytes/100 WBC (Bld) 13.5 % Critically high 1.7-12.0 [facility] Comment on above: Performed By: #### C MP #### [facility] [address] [place] [address] Dr. Kaela Krause NEUT # 2.1 103/ul Normal 1.4-6.[address] [facility] Comment on above: Performed By: #### C MP #### [facility] [address] [place] [address] Dr. aKela Krause Neutrophils/100 WBC (Bld) 54.4 % Normal 43.0-75.[address] [facility] Comment on above: Performed By: #### C MP #### [facility] [address] [place] [address] [address] Kaela Krause Platelet mean volume (Bld) [Entitic vol] 9.7 fL Normal 9.5-13.5 [facility] Comment on above: Performed By: #### C MP #### [facility] [address] [place] [address] [address] Kaela Krause PLT 186 103/ul Normal 150-450 [facility] Comment on above: Performed By: #### C MP #### [facility] [address] [place] [address] [address] Kaela Krause RBC 4.35 106/ul Critically low 4.70-6.10 [facility] Comment on above: Performed By: #### C MP #### [facility] [address] [place] [address] [address] Kaela Krause WBC 3.9 103/ul Critically low 4.0-11.0 [facility] Comment on above: Performed By: #### C MP #### [facility] [address] [place] [address] [address] Kaela Krause POINT OF CARE GLUCOSEon 11-11 Glucose [Mass/Vol] 131 mg/dL Critically high 74-106 [facility] Comment on above: Performed By: #### C MP #### [facility] [id number] Kaela Krause PROF 14(COMP METB)on 023 Albumin [Mass/Vol] 2.7 g/dL Critically low 3.4-5.0 [facility] Comment on above: Performed By: #### C MP #### [facility] [id number] Kaela Krause Albumin/Globulin [Mass ratio] 0.8 {ratio} Normal [facility] Comment on above: Performed By: #### C MP #### [facility] [address] [place] [address] [address] Kaela Krause ALP [Catalytic activity/Vol] 64 U/L Normal 46-116 [facility] Comment on above: Performed By: #### C MP #### [facility] [address] [place] [address] [address] Kaela Krause ALT [Catalytic activity/Vol] 25 U/L Normal 16-63 [facility] Comment on above: Performed By: #### C MP #### [facility] [address] [place] [address] [address] Kaela Krause Anion gap [Moles/Vol] 12.0 mmol/L Normal [facility] Comment on above: Performed By: #### C MP #### [facility] [address] [address] [address] Kaela Krause AST [Catalytic activity/Vol] 21 U/L Normal 15-37 [facility] Comment on above: Performed By: #### C MP #### [facility] [address] [place] [address] Dr. Kaela Krause Bilirubin [Mass/Vol] 0.2 mg/dL Normal 0.2-1.0 [facility] Comment on above: Performed By: #### C MP #### [facility] [address] [address] [address] Kaela Krause Calcium [Mass/Vol] 9.1 mg/dL Normal 8.5-10.1 [facility] Comment on above: Performed By: #### C MP #### [facility] [address] [address] [address] Kaela Krause Chloride [Moles/Vol] 104 mmol/L Normal 98-107 [facility] Comment on above: Performed By: #### C MP #### [facility] [address] [address] [address] Kaela Krause CO2 [Moles/Vol] 27.3 mmol/L Normal 21.0-32.0 [facility] Comment on above: Performed By: #### C MP #### [facility] [address] [address] [address] Kaela Krause Creatinine [Mass/Vol] 0.90 mg/dL Normal 0.70-1.30 [facility] Comment on above: Performed By: #### C MP #### [facility] [address] [address] [address] Kaela Krause EGFR-AF GABONESE >60 Normal >=60 [facility] Comment on above: Performed By: #### C MP #### [facility] [address] [address] [address] Kaela Krause EGFR-NON AF GABONESE >60 Normal >=60 [facility] Comment on above: Performed By: #### C MP #### [facility] [address] [address] [address] Kaela Krause Globulin (S) [Mass/Vol] 3.6 g/dL Normal [facility] Comment on above: Performed By: #### C MP #### [facility] [address] [place] [address] Dr. Kaela Krause Glucose [Mass/Vol] 107 mg/dL Critically high 74-106 [facility] Comment on above: Performed By: #### C MP #### [facility] [address] [address] [address] Kaela Krause Potassium [Moles/Vol] 3.3 mmol/L Critically low 3.5-5.1 [facility] Comment on above: Performed By: #### C MP #### [facility] [address] [place] [address] Dr. Kaela Krause Protein [Mass/Vol] 6.3 g/dL Critically low 6.4-8.2 [facility] Comment on above: Performed By: #### C MP #### [facility] [address] [address] [address] Kaela Krause Sodium [Moles/Vol] 140 mmol/L Normal 136-145 [facility] Comment on above: Performed By: #### C MP #### [facility] [address] [address] [address] Kaela Krause Urea nitrogen [Mass/Vol] 13.0 mg/dL Normal 7.0-18.0 [facility] Comment on above: Performed By: #### C MP #### [facility] [address] [address] [address] Kaela Krause Urea nitrogen/Creatinine [Mass ratio] 14.4 mg/mg Normal [facility] Comment on above: Performed By: #### C MP #### [facility] [address] [address] [address] Kaela Krause CBC AUTO DIFFon 11-30-2022 BASO # 0.0 103/ul Normal 0.0-0.1 [facility] Comment on above: Performed By: #### C MP #### [facility] [address] [place] [address] Dr. Kaela Krause Basophils/100 WBC (Bld) 0.4 % Normal 0.2-2.[address] [facility] Comment on above: Performed By: #### C MP #### [facility] [address] [place] [address] Dr. Kaela Krause EO # 0.0 103/ul Normal 0.0-0.[address] [facility] Comment on above: Performed By: #### C MP #### [facility] [address] [place] [address] Dr. Kaela Krause Eosinophils/100 WBC (Bld) 0.6 % Critically low 0.9-7.[address] [facility] Comment on above: Performed By: #### C MP #### [facility] [address] [place] [address] Dr. Kaela Krause Erythrocyte distribution width (RBC) [Ratio] 14.4 % Normal 11.0-15.[address] [facility] Comment on above: Performed By: #### C MP #### [facility] [address] [place] [address] Dr. Kaela Krause Hematocrit (Bld) [Volume fraction] 33.8 % Critically low 42.0-54.[address] [facility] Comment on above: Performed By: #### C MP #### [facility] [address] [place] [address] Dr. Kaela Krause Hemoglobin (Bld) [Mass/Vol] 11.8 g/dL Critically low 14.0-18.[address] [facility] Comment on above: Performed By: #### C MP #### [facility] [address] [address] [address] Kaela Krause IG # 0.03 10e3/ul Normal 0.00-0.03 [facility] Comment on above: Performed By: #### C MP #### [facility] [address] [place] [address] Dr. Kaela Krause IG % 0.6 % Critically high 0.0-0.5 [facility] Comment on above: Performed By: #### C MP #### [facility] [address] [place] [address] Dr. Kaela Krause LYMPH # 0.8 103/ul Critically low 1.2-3.8 [facility] Comment on above: Performed By: #### C MP #### [facility] [address] [place] [address] Dr. Kaela Krause Lymphocytes/100 WBC (Bld) 15.6 % Critically low 20.5-60.0 [facility] Comment on above: Performed By: #### C MP #### [facility] [address] [place] [address] Dr. Kaela Krause MANUAL DIFF REQ NO Normal [facility] Comment on above: Performed By: #### C MP #### [facility] [address] [place] [address] Dr. Kaela Krause MCH (RBC) [Entitic mass] 27.1 pg Normal 25.9-34.0 [facility] Comment on above: Performed By: #### C MP #### [facility] [address] [place] [address] Dr. Kaela Krause MCHC (RBC) [Mass/Vol] 34.9 g/dL Normal 29.9-35.2 [facility] Comment on above: Performed By: #### C MP #### [facility] [address] [place] [address] Dr. Kaela Krause MCV (RBC) [Entitic vol] 77.5 fL Critically low 80.0-94.0 [facility] Comment on above: Performed By: #### C MP #### [facility] [address] [place] [address] Dr. Kaela Krause MONO # 0.3 103/ul Normal 0.3-0.8 [facility] Comment on above: Performed By: #### C MP #### [facility] [address] [place] [address] Dr. Kaela Krause Monocytes/100 WBC (Bld) 6.0 % Normal 1.7-12.0 [facility] Comment on above: Performed By: #### C MP #### [facility] [address] [place] [address] Dr. Kaela Krause NEUT # 3.8 103/ul Normal 1.4-6.5 [facility] Comment on above: Performed By: #### C MP #### [facility] [address] [place] [address] Dr. Kaela Krause Neutrophils/100 WBC (Bld) 76.8 % Critically high 43.0-75.0 [facility] Comment on above: Performed By: #### C MP #### [facility] [address] [place] [address] Dr. Kaela Krause Platelet mean volume (Bld) [Entitic vol] 9.4 fL Critically low 9.5-13.[address] [facility] Comment on above: Performed By: #### C MP #### [facility] [address] [place] [address] Dr. Kaela Krause PLT 167 103/ul Normal 150-[address] [facility] Comment on above: Performed By: #### C MP #### [facility] [address] [place] [address] Dr. Kaela Krause RBC 4.36 106/ul Critically low 4.70-6.10 [facility] Comment on above: Performed By: #### C MP #### [facility] [address] [place] [address] Dr. Kaela Krause WBC 5.0 103/ul Normal 4.0-11.0 [facility] Comment on above: Performed By: #### C MP #### [facility] [address] [place] [address] PELVIS W CONon 11-30-2022 CT PELVIS W CON EXAMINATION: CT PELV IS W CON 11/30/2022. COMPARISON STUDY: Scrotal ultrasound [...] by: JESUS HAIRSTON Date: 2022-11-30 12:[address] [facility] POINT OF CARE GLUCOSEon 11-11 Glucose [Mass/Vol] 103 mg/dL Normal 74-106 [facility] Comment on above: Performed By: #### C MP #### [facility] [address] [place] [address] Dr. Kaela Krause Glucose [Mass/Vol] 103 mg/dL Normal 74-106 [facility] Comment on above: Performed By: #### P OCGLUC #### [facility] [address] [place] [address] Dr. Kaela Krause Glucose [Mass/Vol] 157 mg/dL Critically high 74-106 [facility] Comment on above: Performed By: #### P OCGLUC #### [facility] [address] [place] [address] Dr. Kaela Krause PROF 14(COMP METB)on 023 Albumin [Mass/Vol] 2.9 g/dL Critically low 3.4-5.0 [facility] Comment on above: Performed By: #### C MP #### [facility] [address] [place] [address] Dr. Kaela Krause Albumin/Globulin [Mass ratio] 0.8 {ratio} Normal [facility] Comment on above: Performed By: #### C MP #### [facility] [address] [place] [address] Dr. Kaela Krause ALP [Catalytic activity/Vol] 56 U/L Normal 46-116 [facility] Comment on above: Performed By: #### C MP #### [facility] [address] [place] [address] Dr. Kaela Krause ALT [Catalytic activity/Vol] 24 U/L Normal 16-63 [facility] Comment on above: Performed By: #### C MP #### [facility] [address] [place] [address] Dr. Kaela Krause Anion gap [Moles/Vol] 12.8 mmol/L Normal [facility] Comment on above: Performed By: #### C MP #### [facility] [address] [place] [address] Dr. Kaela Krause AST [Catalytic activity/Vol] 18 U/L Normal 15-37 [facility] Comment on above: Performed By: #### C MP #### [facility] [address] [place] [address] Dr. Kaela Krause Bilirubin [Mass/Vol] 0.4 mg/dL Normal 0.2-1.0 [facility] Comment on above: Performed By: #### C MP #### [facility] [address] [address] [address] Kaela Krause Calcium [Mass/Vol] 8.8 mg/dL Normal 8.5-10.1 [facility] Comment on above: Performed By: #### C MP #### [facility] [address] [address] [address] Kaela Krause Chloride [Moles/Vol] 106 mmol/L Normal 98-[address] [facility] Comment on above: Performed By: #### C MP #### [facility] [address] [address] [address] Kaela Krause CO2 [Moles/Vol] 27.6 mmol/L Normal 21.0-32.0 [facility] Comment on above: Performed By: #### C MP #### [facility] [address] [place] [address] Dr. Kaela Krause Creatinine [Mass/Vol] 0.97 mg/dL Normal 0.70-1.30 [facility] Comment on above: Performed By: #### C MP #### [facility] [address] [place] [address] Dr. Kaela Krause EGFR-AF GABONESE >60 Normal >=60 [facility] Comment on above: Performed By: #### C MP #### [facility] [address] [place] [address] Dr. Kaeal Krause EGFR-NON AF GABONESE >60 Normal >=[address] [facility] Comment on above: Performed By: #### C MP #### [facility] [address] [place] [address] Dr. Kaela Krause Globulin (S) [Mass/Vol] 3.5 g/dL Normal [facility] Comment on above: Performed By: #### C MP #### [facility] [address] [place] [address] Dr. Kaela Krause Glucose [Mass/Vol] 105 mg/dL Normal 74-106 [facility] Comment on above: Performed By: #### C MP #### [facility] [address] [address] [address] Kaela Krause Potassium [Moles/Vol] 3.4 mmol/L Critically low 3.5-5.1 [facility] Comment on above: Performed By: #### C MP #### [facility] [address] [address] [address] Kaela Krause Protein [Mass/Vol] 6.4 g/dL Normal 6.4-8.2 [facility] Comment on above: Performed By: #### C MP #### [facility] [address] [address] [address] Kaela Krause Sodium [Moles/Vol] 143 mmol/L Normal 136-145 [facility] Comment on above: Performed By: #### C MP #### [facility] [address] [place] [address] Dr. Kaela Krause Urea nitrogen [Mass/Vol] 9.0 mg/dL Normal 7.0-18.0 [facility] Comment on above: Performed By: #### C MP #### [facility] [address] [place] [address] Dr. Kaela Krause Urea nitrogen/Creatinine [Mass ratio] 9.3 mg/mg Normal [facility] Comment on above: Performed By: #### C MP #### [facility] [address] [place] [address] Dr. Kaela Krause CBC AUTO DIFFon 11-29-2022 BASO # 0.0 103/ul Normal 0.0-0.1 [facility] Comment on above: Performed By: #### C MP #### [facility] [address] [place] [address] Dr. Kaela Krause Basophils/100 WBC (Bld) 0.3 % Normal 0.2-2.0 [facility] Comment on above: Performed By: #### C MP #### [facility] [address] [place] [address] Dr. aKela Krause EO # 0.0 103/ul Normal 0.0-0.7 [facility] Comment on above: Performed By: #### C MP #### [facility] [address] [address] [address] Kaela Krause Eosinophils/100 WBC (Bld) 0.1 % Critically low 0.9-7.0 [facility] Comment on above: Performed By: #### C MP #### [facility] [address] [place] [address] Dr. Kaela Krause Erythrocyte distribution width (RBC) [Ratio] 15.2 % Critically high 11.0-15.0 [facility] Comment on above: Performed By: #### C MP #### [facility] [address] [place] [address] Dr. Kaela Krause Hematocrit (Bld) [Volume fraction] 36.1 % Critically low 42.0-54.0 [facility] Comment on above: Performed By: #### C MP #### [facility] [address] [place] [address] Dr. Kaela Krause Hemoglobin (Bld) [Mass/Vol] 11.9 g/dL Critically low 14.0-18.0 [facility] Comment on above: Performed By: #### C MP #### [facility] [address] [place] [address] Dr. Kaela Krause IG # 0.02 10e3/ul Normal 0.00-0.03 [facility] Comment on above: Performed By: #### C MP #### [facility] [address] [place] [address] Dr. Kaela Krause IG % 0.3 % Normal 0.0-0.[address] [facility] Comment on above: Performed By: #### C MP #### [facility] [address] [place] [address] Dr. Kaela Krause LYMPH # 0.7 103/ul Critically low 1.2-3.8 [facility] Comment on above: Performed By: #### C MP #### [facility] [address] [place] [address] Dr. Kaela Krause Lymphocytes/100 WBC (Bld) 10.2 % Critically low 20.5-60.0 [facility] Comment on above: Performed By: #### C MP #### [facility] [address] [place] [address] Dr. Kaela Krause MANUAL DIFF REQ NO Normal [facility] Comment on above: Performed By: #### C MP #### [facility] [address] [place] [address] Dr. Kaela Krause MCH (RBC) [Entitic mass] 27.4 pg Normal 25.9-34.0 [facility] Comment on above: Performed By: #### C MP #### [facility] [address] [place] [address] Dr. Kaela Krause MCHC (RBC) [Mass/Vol] 33.0 g/dL Normal 29.9-35.[address] [facility] Comment on above: Performed By: #### C MP #### [facility] [address] [place] [address] Dr. Kaela Krause MCV (RBC) [Entitic vol] 83.2 fL Normal 80.0-94.0 [facility] Comment on above: Performed By: #### C MP #### [facility] [address] [place] [address] Dr. Kaela Krause MONO # 0.3 103/ul Normal 0.3-0.[address] [facility] Comment on above: Performed By: #### C MP #### [facility] [address] [place] [address] Dr. Kaela Krause Monocytes/100 WBC (Bld) 4.6 % Normal 1.7-12.[address] [facility] Comment on above: Performed By: #### C MP #### [facility] [address] [place] [address] Dr. Kaela Krause NEUT # 5.9 103/ul Normal 1.4-6.[address] [facility] Comment on above: Performed By: #### C MP #### [facility] [address] [place] [address] Dr. Kaela Krause Neutrophils/100 WBC (Bld) 84.5 % Critically high 43.0-75.0 [facility] Comment on above: Performed By: #### C MP #### [facility] [address] [address] [address] Kaela Krause Platelet mean volume (Bld) [Entitic vol] 9.4 fL Critically low 9.5-13.5 [facility] Comment on above: Performed By: #### C MP #### [facility] [address] [address] [address] Kaela Krause PLT 170 103/ul Normal 150-450 [facility] Comment on above: Performed By: #### C MP #### [facility] [address] [address] [address] Kaela Krause RBC 4.34 106/ul Critically low 4.70-6.10 [facility] Comment on above: Performed By: #### C MP #### [facility] [address] [place] [address] Dr. Kaela Krause WBC 7.0 103/ul Normal 4.0-11.0 [facility] Comment on above: Performed By: #### C MP #### [facility] [address] [place] [address] Dr. Kaela Krause CULTURE BLOODon 11-29-2022 Microscopic examination of blood, culture Culture Observations: NO GROWTH AT 5 DAYS. Normal [facility] Comment on above: Performed By: #### B [id number] #### [facility] [address] [place] [address] Dr. Kaela Krause Microscopic examination of blood, culture Culture Observations: NO GROWTH AT 5 DAYS. Normal [facility] Comment on above: Performed By: #### L ACT #### [facility] [address] [place] [address] Dr. Kaela Krause POINT OF CARE GLUCOSEon 11-11 Glucose [Mass/Vol] 108 mg/dL Critically high 74-106 [facility] Comment on above: Performed By: #### C MP #### [facility] [address] [place] [address] Dr. Kaela Krause Glucose [Mass/Vol] 114 mg/dL Critically high 74-106 [facility] Comment on above: Performed By: #### L ACT #### [facility] [address] [address] [address] Kaela Krause Glucose [Mass/Vol] 121 mg/dL Critically high 74-106 [facility] Comment on above: Performed By: #### P OCGLUC #### [facility] [address] [place] [address] Dr. Kaela Krause Glucose [Mass/Vol] 96 mg/dL Normal 74-106 [facility] Comment on above: Performed By: #### P OCGLUC #### [facility] [address] [place] [address] Dr. Kaela Krause PROF 14(COMP METB)on 023 Albumin [Mass/Vol] 3.0 g/dL Critically low 3.4-5.0 [facility] Comment on above: Performed By: #### C MP #### [facility] [address] [place] [address] Dr. Kaela Krause Albumin/Globulin [Mass ratio] 0.9 {ratio} Normal [facility] Comment on above: Performed By: #### C MP #### [facility] [address] [place] [address] Dr. Kaela Krause ALP [Catalytic activity/Vol] 42 U/L Critically low 46-116 [facility] Comment on above: Performed By: #### C MP #### [facility] [address] [place] [address] Dr. Kaela Krause ALT [Catalytic activity/Vol] 17 U/L Normal 16-63 [facility] Comment on above: Performed By: #### C MP #### [facility] [address] [place] [address] Dr. Kaela Krause Anion gap [Moles/Vol] 13.7 mmol/L Normal [facility] Comment on above: Performed By: #### C MP #### [facility] [address] [place] [address] Dr. Kaela Krause AST [Catalytic activity/Vol] 16 U/L Normal 15-37 [facility] Comment on above: Performed By: #### C MP #### [facility] [address] [place] [address] Dr. Kaela Krause Bilirubin [Mass/Vol] 0.5 mg/dL Normal 0.2-1.0 [facility] Comment on above: Performed By: #### C MP #### [facility] [address] [address] [address] Kaela Krause Calcium [Mass/Vol] 8.4 mg/dL Critically low 8.5-10.[address] [facility] Comment on above: Performed By: #### C MP #### [facility] [address] [address] [address] Kaela Krause Chloride [Moles/Vol] 107 mmol/L Normal 98-107 [facility] Comment on above: Performed By: #### C MP #### [facility] [address] [address] [address] Kaela Krause CO2 [Moles/Vol] 23.8 mmol/L Normal 21.0-32.0 [facility] Comment on above: Performed By: #### C MP #### [facility] [address] [address] [address] Kaela Krause Creatinine [Mass/Vol] 1.03 mg/dL Normal 0.70-1.30 [facility] Comment on above: Performed By: #### C MP #### [facility] [address] [place] [address] Dr. Kaela Krause EGFR-AF GABONESE >60 Normal >=60 [facility] Comment on above: Performed By: #### C MP #### [facility] [address] [address] [address] Kaela Krause EGFR-NON AF GABONESE >60 Normal >=60 [facility] Comment on above: Performed By: #### C MP #### [facility] [address] [address] [address] Kaela Krause Globulin (S) [Mass/Vol] 3.2 g/dL Normal [facility] Comment on above: Performed By: #### C MP #### [facility] [address] [address] [address] Kaela Krause Glucose [Mass/Vol] 96 mg/dL Normal 74-106 [facility] Comment on above: Performed By: #### C MP #### [facility] [address] [address] [address] Kaela Krause Potassium [Moles/Vol] 3.5 mmol/L Normal 3.5-5.1 [facility] Comment on above: Performed By: #### C MP #### [facility] [address] [address] [address] Kaela Krause Protein [Mass/Vol] 6.2 g/dL Critically low 6.4-8.2 [facility] Comment on above: Performed By: #### C MP #### [facility] [address] [address] [address] Kaela Krause Sodium [Moles/Vol] 141 mmol/L Normal 136-145 [facility] Comment on above: Performed By: #### C MP #### [facility] [address] [address] [address] Kaela Krause Urea nitrogen [Mass/Vol] 13.0 mg/dL Normal 7.0-18.0 [facility] Comment on above: Performed By: #### C MP #### [facility] [address] [address] [address] Kaela Krause Urea nitrogen/Creatinine [Mass ratio] 12.6 mg/mg Normal [facility] Comment on above: Performed By: #### C MP #### [facility] [address] [address] [address] Kaela Krause CBC AUTO DIFFon 11-28-2022 BASO # 0.0 103/ul Normal 0.0-0.1 [facility] Comment on above: Performed By: #### C MP #### [facility] [address] [address] [address] Kaela Krause Basophils/100 WBC (Bld) 0.2 % Normal 0.2-2.0 [facility] Comment on above: Performed By: #### C MP #### [facility] [address] [address] [address] Kaela Karuse EO # 0.0 103/ul Normal 0.0-0.7 [facility] Comment on above: Performed By: #### C MP #### [facility] [address] [address] [address] Kaela Krause Eosinophils/100 WBC (Bld) 0.1 % Critically low 0.9-7.0 [facility] Comment on above: Performed By: #### C MP #### [facility] [address] [place] [address] Dr. Kaela Krause Erythrocyte distribution width (RBC) [Ratio] 14.9 % Normal 11.0-15.0 [facility] Comment on above: Performed By: #### C MP #### [facility] [address] [place] [address] Dr. Kaela Krause Hematocrit (Bld) [Volume fraction] 35.3 % Critically low 42.0-54.0 [facility] Comment on above: Performed By: #### C MP #### [facility] [address] [place] [address] Dr. Kaela Krause Hemoglobin (Bld) [Mass/Vol] 11.7 g/dL Critically low 14.0-18.0 [facility] Comment on above: Performed By: #### C MP #### [facility] Laboratory [address] [place] [address] Dr. Kaela Krause IG # 0.09 10e3/ul Critically high 0.00-0.03 [facility] Comment on above: Performed By: #### C MP #### [facility] [address] [place] [address] Dr. Kaela Krause IG % 0.8 % Critically high 0.0-0.5 [facility] Comment on above: Performed By: #### C MP #### [facility] [address] [place] [address] Dr. Kaela Krause LYMPH # 0.8 103/ul Critically low 1.2-3.8 [facility] Comment on above: Performed By: #### C MP #### [facility] [address] [place] [address] Dr. Kaela Krause Lymphocytes/100 WBC (Bld) 6.7 % Critically low 20.5-60.0 [facility] Comment on above: Performed By: #### C MP #### [facility] [address] [address] [address] Kaela Krause MANUAL DIFF REQ NO Normal [facility] Comment on above: Performed By: #### C MP #### [facility] [address] [place] [address] Dr. Kalea Krause MCH (RBC) [Entitic mass] 27.6 pg Normal 25.9-34.0 [facility] Comment on above: Performed By: #### C MP #### [facility] [address] [place] [address] Dr. Kaela Krause MCHC (RBC) [Mass/Vol] 33.1 g/dL Normal 29.9-35.2 [facility] Comment on above: Performed By: #### C MP #### [facility] [address] [place] [address] Dr. Kaela Krause MCV (RBC) [Entitic vol] 83.3 fL Normal 80.0-94.0 [facility] Comment on above: Performed By: #### C MP #### [facility] [address] [place] [address] Dr. Kaela Krause MONO # 0.6 103/ul Normal 0.3-0.8 [facility] Comment on above: Performed By: #### C MP #### [facility] [address] [place] [address] Dr. Kaela Krause Monocytes/100 WBC (Bld) 5.4 % Normal 1.7-12.0 [facility] Comment on above: Performed By: #### C MP #### [facility] [address] [place] [address] Dr. Kaela Krause NEUT # 10.0 103/ul Critically high 1.4-6.5 [facility] Comment on above: Performed By: #### C MP #### [facility] [address] [place] [address] Dr. Kaela Krause Neutrophils/100 WBC (Bld) 86.8 % Critically high 43.0-75.0 [facility] Comment on above: Performed By: #### C MP #### [facility] [address] [address] [address] Kaela Krause Platelet mean volume (Bld) [Entitic vol] 9.7 fL Normal 9.5-13.5 [facility] Comment on above: Performed By: #### C MP #### [facility] [address] [address] [address] Kaela Krause PLT 225 103/ul Normal 150-[address] [facility] Comment on above: Performed By: #### C MP #### [facility] [address] [place] [address] Dr. Kaela Krause RBC 4.24 106/ul Critically low 4.70-6.10 [facility] Comment on above: Performed By: #### C MP #### [facility] [address] [place] [address] Dr. Kaela Krause WBC 11.6 103/ul Critically high 4.0-11.0 [facility] Comment on above: Performed By: #### C MP #### [facility] [address] [place] [address] Dr. Kaela Krause BASO # 0.0 103/ul Normal 0.0-0.1 [facility] Comment on above: Performed By: #### C MP #### [facility] [address] [place] [address] Dr. Kaela Krause Basophils/100 WBC (Bld) 0.2 % Normal 0.2-2.[address] [facility] Comment on above: Performed By: #### C MP #### [facility] [address] [place] [address] Dr. Kaela Krause EO # 0.0 103/ul Normal 0.0-0.[address] [facility] Comment on above: Performed By: #### C MP #### [facility] [address] [place] [address] Dr. Kaela Krause Eosinophils/100 WBC (Bld) 0.1 % Critically low 0.9-7.[address] [facility] Comment on above: Performed By: #### C MP #### [facility] [address] [address] [address] Kaela Krause Erythrocyte distribution width (RBC) [Ratio] 14.5 % Normal 11.0-15.0 [facility] Comment on above: Performed By: #### C MP #### [facility] [address] [address] [address] Kaela Krause Hematocrit (Bld) [Volume fraction] 40.0 % Critically low 42.0-54.0 [facility] Comment on above: Performed By: #### C MP #### [facility] [address] [address] [address] aKela Krause Hemoglobin (Bld) [Mass/Vol] 13.4 g/dL Critically low 14.0-18.0 [facility] Comment on above: Performed By: #### C MP #### [facility] [address] [place] [address] Dr. Kalea Krause IG # 0.06 10e3/ul Critically high 0.00-0.03 [facility] Comment on above: Performed By: #### C MP #### [facility] [address] [address] [address] Kaela Krause IG % 0.5 % Normal 0.0-0.5 [facility] Comment on above: Performed By: #### C MP #### [facility] [address] [place] [address] Dr. Kaela Krause LYMPH # 0.4 103/ul Critically low 1.2-3.8 [facility] Comment on above: Performed By: #### C MP #### [facility] [address] [place] [address] Dr. Kaela Krause Lymphocytes/100 WBC (Bld) 3.4 % Critically low 20.5-60.0 [facility] Comment on above: Performed By: #### C MP #### [facility] [address] [place] [address] Dr. Kaela Krause MANUAL DIFF REQ NO Normal [facility] Comment on above: Performed By: #### C MP #### [facility] [address] [address] [address] Kaela Krause MCH (RBC) [Entitic mass] 27.6 pg Normal 25.9-34.[address] [facility] Comment on above: Performed By: #### C MP #### [facility] [address] [place] [address] Dr. Kaela Krause MCHC (RBC) [Mass/Vol] 33.5 g/dL Normal 29.9-35.[address] [facility] Comment on above: Performed By: #### C MP #### [facility] [address] [place] [address] Dr. Kaela Krause MCV (RBC) [Entitic vol] 82.3 fL Normal 80.0-94.[address] [facility] Comment on above: Performed By: #### C MP #### [facility] [address] [place] [address] Dr. Kaela Krause MONO # 0.5 103/ul Normal 0.3-0.[address] [facility] Comment on above: Performed By: #### C MP #### [facility] [address] [place] [address] Dr. Kaela Krause Monocytes/100 WBC (Bld) 4.1 % Normal 1.7-12.[address] [facility] Comment on above: Performed By: #### C MP #### [facility] [address] [place] [address] Dr. Kaela Krause NEUT # 11.3 103/ul Critically high 1.4-6.5 [facility] Comment on above: Performed By: #### C MP #### [facility] [address] [place] [address] Dr. Kaela Krause Neutrophils/100 WBC (Bld) 91.7 % Critically high 43.0-75.[address] [facility] Comment on above: Performed By: #### C MP #### [facility] [address] [place] [address] Dr. Kaela Krause Platelet mean volume (Bld) [Entitic vol] 9.7 fL Normal 9.5-13.[address] [facility] Comment on above: Performed By: #### C MP #### [facility] [address] [place] [address] Dr. Kaela Krause PLT 251 103/ul Normal 150-[address] [facility] Comment on above: Performed By: #### C MP #### [facility] [address] [place] [address] Dr. Kaeal Krause RBC 4.86 106/ul Normal 4.70-6.10 [facility] Comment on above: Performed By: #### C MP #### [facility] [address] [place] [address] Dr. Kaela Krause WBC 12.3 103/ul Critically high 4.0-11.0 [facility] Comment on above: Performed By: #### C MP #### [facility] [address] [place] [address] Dr. Kaela Krause CULTURE BLOODon 11-28-2022 Microscopic examination of blood, culture Culture Observations: NO GROWTH AT 5 DAYS. Isolate 1 [id number] Normal [facility] Comment on above: Performed By: #### B [id number] #### [facility] [address] [place] [address] Dr. Kaela Krause Performed By: #### L ACT #### [facility] [address] [place] [address] Dr. Kaela Krause CULTURE URINEon 11-28-2022 CULTURE URINE Culture Observations : NO GROWTH. Normal [facility] Comment on above: Performed By: #### U RCX #### [facility] [address] [place] [address] Dr. Kaela Krause [facility] SARS-CoV-2 (COVID-19) RNA XAVIER+probe Ql (Unsp spec) Not detected Normal NOT DETECTED [facility] Comment on above: Result Comment: When diagnostic [...] for this test is supported by the Paperback [employer] Operator of Health and Human Service's declaration that [...] used). Performed By: #### L ACT #### [facility] [address] [place] [address] Dr. Kaela Krause ER URINE PROFILEon 3 Bilirubin Ql (U) Negative Normal NEGATIVE [facility] Comment on above: Performed By: #### L ACT #### [facility] [address] [place] [address] Dr. Kaela Krause Color (U) YELLOW Normal YELLOW [facility] Comment on above: Performed By: #### L ACT #### [facility] [address] [place] [address] Dr. Kaela Krause ERUAHD A micrscopic examina tion will be performed if indicated. Normal [facility] Comment on above: Performed By: #### L ACT #### [facility] [address] [place] [address] Dr. Kaela Krause Glucose Ql (U) Negative Normal NEGATIVE [facility] Comment on above: Performed By: #### L ACT #### [facility] [address] [place] [address] Dr. Kaela Krause Hemoglobin Ql (U) LARGE Abnormal NEGATIVE [facility] Comment on above: Performed By: #### L ACT #### [facility] [address] [place] [address] Dr. Kaela Krause Ketones Ql (U) Negative Normal NEGATIVE [facility] Comment on above: Performed By: #### L ACT #### [facility] [address] [place] [address] Dr. Kaela Krause LEUKOCYTES SMALL Abnormal NEGATIVE [facility] Comment on above: Performed By: #### L ACT #### [facility] [address] [place] [address] Dr. Kaela Krause Nitrite Ql (U) Negative Normal NEGATIVE [facility] Comment on above: Performed By: #### L ACT #### [facility] [address] [place] [address] Dr. Kaela Krause pH (U) 6.0 [pH] Normal 5-9 [facility] Comment on above: Performed By: #### L ACT #### [facility] [address] [place] [address] Dr. Kaela Krause SPEC GRAVITY <=1.005 Abnormal 1.005-<=1.02 5 [facility] Comment on above: Performed By: #### L ACT #### [facility] [address] [place] [address] Dr. Kaela Krause UA PROTEIN Negative Normal NEGATIVE/ TRACE [facility] Comment on above: Performed By: #### L ACT #### [facility] [address] [place] [address] Dr. Kaela Krause UR MICRO IND INDICATED Normal [facility] Comment on above: Performed By: #### L ACT #### [facility] [address] [place] [address] Dr. Kaela Krause Urobilinogen Qn (U) 0.2 {Trey'U}/dL Normal 0.2 - 1. 0 [facility] Comment on above: Performed By: #### L ACT #### [facility] [address] [place] [address] Dr. Kaela Krause INFLUENZA A AND B AGon 11-28 INFLUANEGH SEE BELOW Normal [facility] Comment on above: Result Comment: Nega tive for Flu A protein angiten. Infection due to Flu A cannot be ruled out. Flu A angiten in the sample may be below the detection limit of the test. Performed By: #### C MP #### [facility] [address] [place] [address] Dr. Kaela Krause INFLUENZA A AG Negative Normal NEGATIVE SEE COMMENT [facility] Comment on above: Performed By: #### C MP #### [facility] [address] [place] [address] Dr. Kaela Krause INFLUENZA B AG Negative Normal NEGATIVE SEE COMMENT [facility] Comment on above: Performed By: #### C MP #### [facility] [address] [place] [address] Dr. Kaela Krause INFLUPOSHB SEE BELOW Normal [facility] Comment on above: Result Comment: NOTE : Live attenuated influenzae vaccine viruses can cause a positive result for a rapid influenza diagnostic test if administered up to 7 days prior to rapid testing. Performed By: #### C MP #### [facility] [address] [place] [address] Dr. Kaela Krause LACTATE/LACTIC ACIDon 2022 Lactate [Moles/Vol] 1.4 mmol/L Normal 0.4-1.9 [facility] Comment on above: Performed By: #### C MP #### [facility] [address] [place] [address] Dr. Kaela Krause Lactate [Moles/Vol] 1.0 mmol/L Normal 0.4-1.9 [facility] Comment on above: Performed By: #### L ACT #### [facility] [address] [place] [address] Dr. Kaela Krause Lactate [Moles/Vol] 2.6 mmol/L Critically high 0.4-1.9 [facility] Comment on above: Performed By: #### C MP #### [facility] [address] [place] [address] Dr. Kaela Krause POINT OF CARE GLUCOSEon 11-10 Glucose [Mass/Vol] 120 mg/dL Critically high 74-106 [facility] Comment on above: Performed By: #### C MP #### [facility] [address] [place] [address] Dr. Kaela Krause Glucose [Mass/Vol] 77 mg/dL Normal 74-106 [facility] Comment on above: Performed By: #### C MP #### [facility] [address] [place] [address] Dr. Kaela Krause Glucose [Mass/Vol] 97 mg/dL Normal 74-106 [facility] Comment on above: Performed By: #### L ACT #### [facility] [address] [address] [address] Kaela Krause Glucose [Mass/Vol] 112 mg/dL Critically high 74-106 [facility] Comment on above: Performed By: #### C MP #### [facility] [address] [address] [address] Kaela Krause PROF 14(COMP METB)on 023 Albumin [Mass/Vol] 3.8 g/dL Normal 3.4-5.0 [facility] Comment on above: Performed By: #### C MP #### [facility] [address] [place] [address] Dr. Kaela Krause Albumin/Globulin [Mass ratio] 1.2 {ratio} Normal [facility] Comment on above: Performed By: #### C MP #### [facility] [address] [place] [address] Dr. Kaela Krause ALP [Catalytic activity/Vol] 55 U/L Normal 46-116 [facility] Comment on above: Performed By: #### C MP #### [facility] [address] [address] [address] Kaela Krause ALT [Catalytic activity/Vol] 18 U/L Normal 16-63 [facility] Comment on above: Performed By: #### C MP #### [facility] [address] [place] [address] Dr. Kaela Krause Anion gap [Moles/Vol] 14.4 mmol/L Normal [facility] Comment on above: Performed By: #### C MP #### [facility] [address] [address] [address] Kaela Krause AST [Catalytic activity/Vol] 17 U/L Normal 15-37 [facility] Comment on above: Performed By: #### C MP #### [facility] [address] [address] [address] Kaela Krause Bilirubin [Mass/Vol] 0.8 mg/dL Normal 0.2-1.0 [facility] Comment on above: Performed By: #### C MP #### [facility] [address] [address] [address] Kaela Krause Calcium [Mass/Vol] 9.6 mg/dL Normal 8.5-10.1 [facility] Comment on above: Performed By: #### C MP #### [facility] [address] [address] [address] Kaela Krause Chloride [Moles/Vol] 103 mmol/L Normal 98-107 [facility] Comment on above: Performed By: #### C MP #### [facility] [address] [place] [address] Dr. Kaela Krause CO2 [Moles/Vol] 24.3 mmol/L Normal 21.0-32.0 [facility] Comment on above: Performed By: #### C MP #### [facility] [address] [place] [address] Dr. Kaela Krause Creatinine [Mass/Vol] 1.18 mg/dL Normal 0.70-1.30 [facility] Comment on above: Performed By: #### C MP #### [facility] [address] [place] [address] Dr. Kaela Krause EGFR-AF GABONESE >60 Normal >=60 [facility] Comment on above: Performed By: #### C MP #### [facility] [address] [place] [address] Dr. Kaela Krause EGFR-NON AF GABONESE >60 Normal >=60 [facility] Comment on above: Performed By: #### C MP #### [facility] [address] [place] [address] Dr. Kaela Krause Globulin (S) [Mass/Vol] 3.3 g/dL Normal [facility] Comment on above: Performed By: #### C MP #### [facility] [address] [place] [address] Dr. Kaela Krause Glucose [Mass/Vol] 163 mg/dL Critically high 74-106 [facility] Comment on above: Performed By: #### C MP #### [facility] [address] [place] [address] Dr. Kaela Krause Potassium [Moles/Vol] 3.7 mmol/L Normal 3.5-5.1 [facility] Comment on above: Performed By: #### C MP #### [facility] [address] [address] [address] Kaela Krause Protein [Mass/Vol] 7.1 g/dL Normal 6.4-8.2 [facility] Comment on above: Performed By: #### C MP #### [facility] [address] [address] [address] Kaela Krause Sodium [Moles/Vol] 138 mmol/L Normal 136-145 [facility] Comment on above: Performed By: #### C MP #### [facility] [address] [place] [address] Dr. Kaela Krause Urea nitrogen [Mass/Vol] 21.0 mg/dL Critically high 7.0-18.0 [facility] Comment on above: Performed By: #### C MP #### [facility] [address] [place] [address] Dr. Kaela Krause Urea nitrogen/Creatinine [Mass ratio] 17.8 mg/mg Normal [facility] Comment on above: Performed By: #### C MP #### [facility] [address] [place] [address] Dr. Kaela Krause PROF CHEM 8 (BAS METB)on Anion gap [Moles/Vol] 11.5 mmol/L Normal [facility] Comment on above: Performed By: #### C MP #### [facility] [address] [place] [address] Dr. Kaela Krause Calcium [Mass/Vol] 8.4 mg/dL Critically low 8.5-10.1 [facility] Comment on above: Performed By: #### C MP #### [facility] [address] [place] [address] Dr. Kaela Krause Chloride [Moles/Vol] 109 mmol/L Critically high 98-107 [facility] Comment on above: Performed By: #### C MP #### [facility] [address] [place] [address] Dr. Kaela Krause CO2 [Moles/Vol] 26.7 mmol/L Normal 21.0-32.0 [facility] Comment on above: Performed By: #### C MP #### [facility] [address] [address] [address] Kaela Krause Creatinine [Mass/Vol] 0.98 mg/dL Normal 0.70-1.30 [facility] Comment on above: Performed By: #### C MP #### [facility] [address] [address] [address] Kaela Krause EGFR-AF GABONESE >60 Normal >=60 [facility] Comment on above: Performed By: #### C MP #### [facility] [address] [place] [address] Dr. Kaela Krause EGFR-NON AF GABONESE >60 Normal >=60 [facility] Comment on above: Performed By: #### C MP #### [facility] [address] [place] [address] Dr. Kaela Krause Glucose [Mass/Vol] 117 mg/dL Critically high 74-106 [facility] Comment on above: Performed By: #### C MP #### [facility] [address] [place] [address] Dr. Kaela Krause Potassium [Moles/Vol] 4.2 mmol/L Normal 3.5-5.1 [facility] Comment on above: Performed By: #### C MP #### [facility] [address] [place] [address] Dr. Kaela Krause Sodium [Moles/Vol] 143 mmol/L Normal 136-145 [facility] Comment on above: Performed By: #### C MP #### [facility] [address] [address] [address] Kaela Krause Urea nitrogen [Mass/Vol] 16.0 mg/dL Normal 7.0-18.0 [facility] Comment on above: Performed By: #### C MP #### [facility] [address] [place] [address] Dr. Kaela Krause Urea nitrogen/Creatinine [Mass ratio] 16.3 mg/mg Normal [facility] Comment on above: Performed By: #### C MP #### [facility] [address] [address] [address] Kaela Krause URINE MICROSCOPIC ONLYon BACTERIA TRACE Abnormal NONE SEEN [facility] Comment on above: Performed By: #### L ACT #### [facility] [address] [place] [address] Dr. Kaela Krause Bacteria identified Cx Nom (U) INDICATED Normal [facility] Comment on above: Performed By: #### L ACT #### [facility] [address] [place] [address] Dr. Kaela Krause CAST NONE SEEN Normal NONE SEEN [facility] Comment on above: Performed By: #### L ACT #### [facility] [address] [place] [address] Dr. Kaela Krause Crystals LM Nom (Urine sed) NONE SEEN Normal NONE SEEN [facility] Comment on above: Performed By: #### L ACT #### [facility] [address] [place] [address] Dr. Kaela Krause Epithelial cells LM Ql (Urine sed) RARE Normal NONE SEEN /RARE [facility] Comment on above: Performed By: #### L ACT #### [facility] [address] [place] [address] Dr. Kaela Krause MUCOUS NONE SEEN Normal NONE SEEN [facility] Comment on above: Performed By: #### L ACT #### [facility] [address] [place] [address] Dr. Kaela Krause RBC 2-5 Abnormal 0-[address] [facility] Comment on above: Performed By: #### L ACT #### [facility] [address] [place] [address] Dr. Kaela Krause WBC 2-5 Abnormal NONE SEEN [facility] Comment on above: Performed By: #### L ACT #### [facility] [address] [place] [address] Dr. Kaela Krause XR CHEST 1 Von 11-28-2022 XR CHEST 1 V CHEST 1 VIEW, 023 11:21 PM EST CLINICAL INDICATION: COUGH. . COMPARISON: None. FINDINGS: Cardiac size, mediastinal contour, and pulmonary vascularity appear within normal limits. The lungs and pleural spaces appear clear. No acute osseous abnormality or suspicious bony lesion is identified. IMPRESSION: No acute findings. Electronically authenticated by: KRISTIN SINGH Date: 2022-11-28 00:38 Normal [facility] MR prostate wo/w conon 10-01 MR prostate wo/w con [facility] [place] [address] [place] [address] MRI Report Signed Patient: Monique Feng MR#: [id number] [birth year] : 1955 Acct:[id number] Age/Sex: 67 / M ADM Date: 09/20/22 Loc: MR Room: Type: [facility] Attending Dr: Christiano Mccain MD Copies to: [...] hydroceles. Impression dictated by: Matteo Stanley Jr., D.OElvira10/01/2022 8:20 AM Dictation Location: [place] [address] Transcribed By: [facility] 10/01/22819 Dictated By: Matteo Stanley Jr, DO 10/01/22813 Signed By: 10/01/22819 [facility] ISTAT XRay CREon 09-21-2022 ISTAT GFR ( > 60 Normal [facility] Comment on above: Result Comment: GFR estimated reference range: According to KDOQI guidelines, <60 ml/min/1.73m2 is sufficient to diagnose a patient with chronic kidney disease. PERFORMED BY: [place] [address] PATHOLOGIST [employer] MELISA FRANK M.D. Performed By: #### I SCRE #### [address] Point of Care testing , ISTAT GFR (Non- Am > 60 Normal [facility] Comment on above: Performed By: #### I SCRE #### [address] Point of Care testing , No Panel InformationOrdered By: Christiano Mccain on 09-20-2022 POC Estimated GFR > 60 [facility] Comment on above: GFR estimated refere nce range: According to KDOQI guidelines, <60 ml/min/1.73m2 is sufficient to diagnose a patient with chronic kidney disease. POC Estimated GFR Non- Amer > 60 [facility] Whole blood creatinine measu rementOrdered By: Christiano Mccain on 09-20-2022 Creatinine [Mass/Vol] 1.0 mg/dL Normal 0.6-1.3 [facility] Comment on above: ER/ESD physician is notified/shown all ISTAT results.Critical values may be confirmed by laboratory testing ifdeemed necessary by ER attending doctor. Result Comment: ER/E SD physician is notified/shown all ISTAT results. Critical values may be confirmed by laboratory testing if deemed necessary by ER attending doctor. Performed By: #### I SCRE #### [facility] [address] [place] [address] Point of Care testing , US SCROTUMon 09-09-2022 US SCROTUM EXAMINATION: US SCRO JAYDE HISTORY: Hydrocele of testis COMPARISON: No relevant [...] by: NICO GRESHAM Date: 2022-09-09 12:[address] [facility] PSA, FREE AND TOTAL RATIOon 08-01-2022 % Free PSA 11.9 % Normal [facility] Comment on above: Result Comment: The table below lists the probability of prostate cancer for men with non-suspicious JULIA results and total PSA between 4 and 10 ng/mL, by patient age (Nawaf et al, ANNY 1998, 279:1542). % Free PSA 50-64 yr 65-75 yr 0.00-10.00% 56% 55% 10.01-15.00% 24% 35% 15.01-20.00% 17% 23% 20.01-25.00% 10% 20% >25.00% 5% 9% Please note: Nawaf et al did not make specific recommendations regarding the use of percent free PSA for any other population of men. Performed By: #### P OCGLUC #### [facility] [address] [place] [address] Dr. Kaela Krause Prostate specific Ag [Mass/Vol] 3.6 ng/mL Normal 0.0-4.0 [facility] Comment on above: Result Comment: Betsey MARTINEZ methodology. . According to the [employer], Serum PSA should decrease and [...] disease. Performed By: #### P OCGLUC #### [facility] [address] [place] [address] Dr. Kaela Krause PSA, Free 0.43 ng/mL Normal N/A [facility] Comment on above: Result Comment: Betsey barragan ECLIA methodology. Performed By: #### P OCGLUC #### [facility] [address] [place] [address] Dr. Kaela Krause INSULINon 07-31-2022 Insulin 10.0 uIU/mL Normal 2.6-24.[address] [facility] Comment on above: Performed By: #### L ACT #### [facility] [address] [place] [address] Dr. Kaela Krause T4, T3U, FTI LABCORPon 07-31 Free Thyroxine Index 2.0 Normal 1.2-4.9 [facility] Comment on above: Performed By: #### T HYLC #### [facility] [address] [place] [address] Dr. Kaela Krause T3 Uptake 27 % Normal 24-39 [facility] Comment on above: Performed By: #### T HYLC #### [facility] [address] [place] [address] Dr. Kaela Krause T4 [Mass/Vol] 7.3 ug/dL Normal 4.5-12.0 [facility] Comment on above: Performed By: #### T HYLC #### [facility] [address] [place] [address] Dr. Kaela Krause CBC AUTO DIFFon 07-30-2022 BASO # 0.0 103/ul Normal 0.0-0.1 [facility] Comment on above: Performed By: #### L ACT #### [facility] [address] [place] [address] Dr. Kaela Krause Basophils/100 WBC (Bld) 0.6 % Normal 0.2-2.0 [facility] Comment on above: Performed By: #### L ACT #### [facility] [address] [place] [address] Dr. Kaela Krause EO # 0.2 103/ul Normal 0.0-0.7 [facility] Comment on above: Performed By: #### L ACT #### [facility] [address] [place] [address] Dr. Kaela Krause Eosinophils/100 WBC (Bld) 3.0 % Normal 0.9-7.0 [facility] Comment on above: Performed By: #### L ACT #### [facility] [address] [place] [address] Dr. Kaela Krause Erythrocyte distribution width (RBC) [Ratio] 14.0 % Normal 11.0-15.0 [facility] Comment on above: Performed By: #### L ACT #### [facility] [address] [place] [address] Dr. Kaela Krause Hematocrit (Bld) [Volume fraction] 43.6 % Normal 42.0-54.0 [facility] Comment on above: Performed By: #### L ACT #### [facility] [address] [place] [address] Dr. Kaela Krause Hemoglobin (Bld) [Mass/Vol] 14.0 g/dL Normal 14.0-18.0 [facility] Comment on above: Performed By: #### L ACT #### [facility] [address] [place] [address] Dr. Kaela Krause IG # 0.01 10e3/ul Normal 0.00-0.03 [facility] Comment on above: Performed By: #### L ACT #### [facility] [address] [place] [address] Dr. Kaela Krause IG % 0.2 % Normal 0.0-0.[address] [facility] Comment on above: Performed By: #### L ACT #### [facility] [address] [place] [address] Dr. Kaela Krause LYMPH # 2.2 103/ul Normal 1.2-3.[address] [facility] Comment on above: Performed By: #### L ACT #### [facility] [address] [place] [address] Dr. Kaela Krause Lymphocytes/100 WBC (Bld) 33.8 % Normal 20.5-60.0 [facility] Comment on above: Performed By: #### L ACT #### [facility] [address] [place] [address] Dr. Kaela Krause MANUAL DIFF REQ NO Normal [facility] Comment on above: Performed By: #### L ACT #### [facility] [address] [place] [address] Dr. Kaela Krause MCH (RBC) [Entitic mass] 27.7 pg Normal 25.9-34.0 [facility] Comment on above: Performed By: #### L ACT #### [facility] [address] [place] [address] Dr. Kaela Krause MCHC (RBC) [Mass/Vol] 32.1 g/dL Normal 29.9-35.2 [facility] Comment on above: Performed By: #### L ACT #### [facility] [address] [place] [address] Dr. Kaela Krause MCV (RBC) [Entitic vol] 86.2 fL Normal 80.0-94.0 [facility] Comment on above: Performed By: #### L ACT #### [facility] [address] [place] [address] Dr. Kaela Krause MONO # 0.5 103/ul Normal 0.3-0.8 [facility] Comment on above: Performed By: #### L ACT #### [facility] [address] [place] [address] Dr. Kaela Krause Monocytes/100 WBC (Bld) 8.1 % Normal 1.7-12.0 [facility] Comment on above: Performed By: #### L ACT #### [facility] [address] [place] [address] Dr. Kaela Krause NEUT # 3.6 103/ul Normal 1.4-6.[address] [facility] Comment on above: Performed By: #### L ACT #### [facility] [address] [place] [address] Dr. Kaela Krause Neutrophils/100 WBC (Bld) 54.3 % Normal 43.0-75.[address] [facility] Comment on above: Performed By: #### L ACT #### [facility] [address] [address] [address] Kaela Krause Platelet mean volume (Bld) [Entitic vol] 9.5 fL Normal 9.5-13.5 [facility] Comment on above: Performed By: #### L ACT #### [facility] [address] [address] [address] Kaela Krause PLT 366 103/ul Normal 150-450 [facility] Comment on above: Performed By: #### L ACT #### [facility] [address] [address] [address] Kaela Krause RBC 5.06 106/ul Normal 4.70-6.10 [facility] Comment on above: Performed By: #### L ACT #### [facility] [address] [address] [address] Kaela Krause WBC 6.6 103/ul Normal 4.0-11.0 [facility] Comment on above: Performed By: #### L ACT #### [facility] [address] [address] [address] Kaela Krause GLYCOHEMOGLOBIN A1Con 2021 ADA RECOMMENDATION SEE BELOW Normal [facility] Comment on above: Result Comment: ADA RECOMMENDED LIMIT 4.0 - 6.0 ADA THERAPEUTIC TARGET < 7.0 ACTION SUGGESTED > 7.0 Performed By: #### C MP #### [facility] [address] [address] [address] Kaela Krause Glucose [Mass/Vol] 123 mg/dL Normal [facility] Comment on above: Performed By: #### C MP #### [facility] [address] [address] [address] Kaela Krause HbA1c (Bld) [Mass fraction] 5.9 % Normal 4.5-6.2 [facility] Comment on above: Performed By: #### C MP #### [facility] [address] [address] [address] Kaela Krause LIPID PROFILEon 07-30-2022 CHOL-HDL RATIO NORM SEE BELOW Normal [facility] Comment on above: Result Comment: 3.3 - 4.4 LOW RISK 4.4 - 7.1 AVERAGE RISK 7.1 - 11.0 MODERATE RISK >11.0 HIGH RISK Performed By: #### C MP #### [facility] [address] [address] [address] Kaela Krause Cholesterol [Mass/Vol] 170 mg/dL Normal <=200 [facility] Comment on above: Performed By: #### C MP #### [facility] [address] [address] [address] Kaela Krause Cholesterol in HDL [Mass/Vol] 49 mg/dL Normal 40-60 [facility] Comment on above: Performed By: #### C MP #### [facility] [address] [address] [address] Kaela Krause Cholesterol in LDL [Mass/Vol] 106.4 mg/dL Normal [facility] Comment on above: Performed By: #### C MP #### [facility] [address] [address] [address] Kaela Krause Cholesterol.total/Cho lesterol in HDL [Mass ratio] 3.5 {ratio} Normal [facility] Comment on above: Performed By: #### C MP #### [facility] [address] [address] [address] Kaela Krause HDL NORMAL > or = 60 mg/dl - LO W CARDIOVASCULAR RISK <40 mg/dl - HIGH CARDIOVASCULAR RISK Normal [facility] Comment on above: Performed By: #### C MP #### [facility] [address] [address] [address] Kaela Krasue LDL CALC NORMAL SEE BELOW Normal [facility] Comment on above: Result Comment: <100 mg/dl OPTIMAL 100 - 129 mg/dl NEAR OR ABOVE OPTIMAL 130 - 159 mg/dl BORDERLINE HIGH 160 - 189 mg/dl HIGH >190 mg/dl VERY HIGH Performed By: #### C MP #### [facility] [address] [address] [address] Kaela Krause Triglyceride [Mass/Vol] 73 mg/dL Normal <=150 [facility] Comment on above: Performed By: #### C MP #### [facility] [address] [address] [address] Kaela Krause VLDL CALC 14.6 mg/dL Normal [facility] Comment on above: Performed By: #### C MP #### [facility] [address] [address] [address] Kaela Krause PROF 14(COMP METB)on 022 Albumin [Mass/Vol] 3.8 g/dL Normal 3.4-5.0 [facility] Comment on above: Performed By: #### P OCGLUC #### [facility] [address] [address] [address] Kaela Krause Albumin/Globulin [Mass ratio] 1.1 {ratio} Normal [facility] Comment on above: Performed By: #### P OCGLUC #### [facility] [address] [place] [address] Dr. Kaela Krause ALP [Catalytic activity/Vol] 50 U/L Normal 46-116 [facility] Comment on above: Performed By: #### P OCGLUC #### [facility] [address] [address] [address] Kaela Krause ALT [Catalytic activity/Vol] 24 U/L Normal 16-63 [facility] Comment on above: Performed By: #### P OCGLUC #### [facility] [address] [place] [address] Dr. Kaela Krause Anion gap [Moles/Vol] 11.9 mmol/L Normal [facility] Comment on above: Performed By: #### P OCGLUC #### [facility] [address] [address] [address] Kaela Krause AST [Catalytic activity/Vol] 12 U/L Critically low 15-37 [facility] Comment on above: Performed By: #### P OCGLUC #### [facility] [address] [address] [address] Kaela Krause Bilirubin [Mass/Vol] 0.4 mg/dL Normal 0.2-1.0 [facility] Comment on above: Performed By: #### P OCGLUC #### [facility] [address] [address] [address] Kaela Krause Calcium [Mass/Vol] 8.9 mg/dL Normal 8.5-10.1 [facility] Comment on above: Performed By: #### P OCGLUC #### [facility] [address] [address] [address] Kaela Krause Chloride [Moles/Vol] 107 mmol/L Normal 98-107 [facility] Comment on above: Performed By: #### P OCGLUC #### [facility] [address] [address] [address] Kaela Krause CO2 [Moles/Vol] 27.3 mmol/L Normal 21.0-32.0 [facility] Comment on above: Performed By: #### P OCGLUC #### [facility] [address] [place] [address] Dr. Kaela Krause Creatinine [Mass/Vol] 1.04 mg/dL Normal 0.70-1.30 [facility] Comment on above: Performed By: #### P OCGLUC #### [facility] [address] [address] [address] Kaela Krause EGFR-AF GABONESE >60 Normal >=60 [facility] Comment on above: Performed By: #### P OCGLUC #### [facility] [address] [address] [address] Kaela Krause EGFR-NON AF GABONESE >60 Normal >=60 [facility] Comment on above: Performed By: #### P OCGLUC #### [facility] [address] [address] [address] Kaela Krause Globulin (S) [Mass/Vol] 3.6 g/dL Normal [facility] Comment on above: Performed By: #### P OCGLUC #### [facility] [address] [address] [address] Kaela Krause Glucose [Mass/Vol] 113 mg/dL Critically high 74-106 [facility] Comment on above: Performed By: #### P OCGLUC #### [facility] [address] [address] [address] Kaela Krause Potassium [Moles/Vol] 4.2 mmol/L Normal 3.5-5.1 [facility] Comment on above: Performed By: #### P OCGLUC #### [facility] [address] [address] [address] Kaela Krause Protein [Mass/Vol] 7.4 g/dL Normal 6.4-8.2 [facility] Comment on above: Performed By: #### P OCGLUC #### [facility] [address] [address] [address] Kaela Krause Sodium [Moles/Vol] 142 mmol/L Normal 136-145 [facility] Comment on above: Performed By: #### P OCGLUC #### [facility] [address] [address] [address] Kaela Krause Urea nitrogen [Mass/Vol] 21.0 mg/dL Critically high 7.0-18.0 [facility] Comment on above: Performed By: #### P OCGLUC #### [facility] [address] [address] [address] Kaela Krause Urea nitrogen/Creatinine [Mass ratio] 20.2 mg/mg Normal [facility] Comment on above: Performed By: #### P OCGLUC #### [facility] [address] [address] [address] Kaela Krause TSHon 07-30-2022 TSH 3.249 uIU/mL Normal 0.358-3.740 [facility] Comment on above: Performed By: #### P OCGLUC #### [facility] [address] [place] [address] Dr. Kaela Krause Vital Signs Date Time Vital Sign Value Performing Clinician Faci litjt 09-08-2024 10:11-0400 Diastolic blood pressure 82 mm[Hg] Miky GALINDO [facility] 09-08-2024 10:11-0400 Systolic blood pressure 140 mm[Hg] Miky GALINDO [facility] 12-13-2022 11:06-0500 Blood Pressure Location Christianoskye MCCAIN [facility] 12-13-2022 11:06-0500 Diastolic blood pressure 74 mm[Hg] Christiano MCCAIN [facility] 12-13-2022 11:06-0500 Heart rate 80 /min Christiano MCCAIN [facility] 12-13-2022 11:06-0500 Respiratory rate 16 /min Christiano MCCAIN [facility] 12-13-2022 11:06-0500 Systolic blood pressure 128 mm[Hg] Christiano MCCAIN [facility] 09-06-2022 10:01-0400 Blood Pressure Location Christiano MCCAIN [facility] 09-06-2022 10:01-0400 Diastolic blood pressure 84 mm[Hg] Christiano MCCAIN [facility] 09-06-2022 10:01-0400 Heart rate 62 /min Christiano MCCAIN [facility] 09-06-2022 10:01-0400 Respiratory rate 16 /min Christiano MCCAIN [facility] 09-06-2022 10:01-0400 Systolic blood pressure 127 mm[Hg] Christiano MCCAIN [facility] Encounters Encounter Date Encounter Type Care Provider Facility Start: 10-01-2024 End: 10-01-2024 ambulatory Miky GALINDO Facility:[facility] Start: 10-01-2024 End: 10-01-2024 Patient encounter procedure Miky GALINDO [facility] Start: 09-08-2024 End: 09-08-2024 ambulatory Miky GALINDO Facility:[facility] Start: 09-08-2024 End: 09-08-2024 Patient encounter procedure Miky GALINDO [facility] [place] Start: 09-03-2024 End: 09-03-2024 ambulatory Miky GALINDO Facility:[facility] Start: 09-03-2024 End: 09-03-2024 Patient encounter procedure Miky GALINDO [facility] Start: 08-23-2024 ambulatory Miky GALINDO Facility:[facility] Start: 12-13-2022 End: 12-13-2022 Patient encounter procedure Christiano MCCAIN [facility] Start: 11-28-2022 End: 12-01-2022 Evaluation and management of inpatient DR JAZMINE BRADFORD Facility:[facility] Start: 09-20-2022 End: 09-20-2022 ambulatory Jazmine Bradford Facility:[facility] Start: 09-20-2022 End: 09-20-2022 ambulatory MD Jazmine Bradford Work Phone: [facility] Work Phone: Start: 09-20-2022 End: 09-20-2022 Patient encounter procedure MD Jazmine Bradford Work Phone: [facility] [place] Start: 09-09-2022 End: 09-10-[address] CHRISTIANO MCCAIN Facility:[facility] Start: 09-06-2022 End: 09-06-2022 Patient encounter procedure Christiano MCCAIN [facility] Start: 07-30-2022 End: 07-31-[address] JAZMINE BRADFORD Facility:[facility] Procedures Date Procedure Procedure Detail Performing Clinician Start: 11-26-2022 Transrectal biopsy o f prostate using ultrasound guidance Christiano MCCAIN Start: 07-30-[address] VIOLETA BRADFORD Comment on above: Performed By: #### C MP #### [facility] [address] [place] [address] Dr. Kaela Krause Start: 09-28-2019 Hernia repair Christiano W PATY Comment on above: incisional Start: 06-25-2019 Colonoscopy Christiano CUEVAS Arthroscopy of knee right Pa kofi MCCAIN Open repair of ingui nal hernia Christiano MCCAIN Repair of umbilical hernia P atrick HERMELINDA Plan of Treatment Date Care Activity Detail Author Start: 03-21-2025 ambulatory Ambulatory Facility:[facility] Start: 09-20-2022 MR Prostate WO and W contrast IV [facility] Start: 09-20-2022 MR prostate wo/w con MR prostate wo/ w con [facility] Immunizations Immunization Date Immunization Notes Care Provider Antoinette johnson 02-13-2021 SARS-CoV-2 (COVID-19 ) mRNA-1273 vaccine Christiano MCCAIN [facility] Comment on above: Result Comment: 202203: 65 01-16-2021 SARS-CoV-2 (COVID-19 ) mRNA-1273 vaccine Crhistiano MCCAIN [facility] 09-07-2020 influenza virus vaccine, unspecified formulation Christiano MCCAIN [facility] 11-10-2018 influenza virus vaccine, unspecified formulation Christiano MCCAIN [facility] Payers Date Payer Category Payer Self-pay [id number] 1959 Medicare [id number] 1959 Private Health Insurance 101 [id number] 1955 Unknown [id number] 2.16.84 [id number] 1955 Unknown [id number] 2.16.84 [id number] 1955 Unknown [id number] 2.16.84 [id number] 1955 Unknown [id number] 2.16.8 [id number] 1955 Unknown [id number] 2.16.8 [id number] 1955 Unknown [id number] 2.16.8 [id number] 1955 Unknown [id number] 2.16.8 [id number] Medicare Medicare [id number] Unknown [id number] 2.16.8 [id number] Social History Date Type Detail Facility Start: 09-06-2022 End: 09-08-2024 Tobacco smoking status Never smoked tobacco (finding) [facility] Sex Assigned At Male [facility] Start: 1955 Sex Assigned At Male [facility] Functional Status Date Assessment Result Facility 09-08-2024 Functional Status N/A [facility] 12-13-2022 Functional Status N/A [facility] 09-06-2022 Functional Status N/A [facility] Discharge instructions 09-08-2024 Note Date & Type Note Facility 09-08-2024 Hospital Discharg e instructions Patient Education 09/08/2024 10:38:17 Intravenous Pyelogram Intravenous Pyelogram An intravenous pyelogram is an X-ray of the urinary tract. The urinary tract is the system through which pee (urine) travels. This tract includes the kidneys, ureters, and bladder. An intravenous pyelogram can help your health care provider find problems, such as: Kidney stones. Bladder stones. An enlarged prostate. Tumors. Tell a health care provider about: Any allergies you have. All medicines you are taking, including vitamins, herbs, eye drops, creams, and wwoz-dhu-raqwqmz medicines. Any problems you or family members have had with anesthesia. Any bleeding problems you have. Any surgeries you have had. Any medical conditions you have. Whether you are or may be . What are the risks? Your provider will talk with you about risks. These may include: Nausea. An allergic reaction to the dye that is used during the procedure. What happens before the procedure? Follow instructions from your provider about eating or drinking restrictions. Follow instructions from your provider about preparing for the test by taking an oral bowel prep. Ask your provider about changing or stopping your regular medicines. These include any diabetes medicines or blood thinners you take. You may need to remove glasses, jewelry, and any other metal objects. You may be asked to put on a hospital gown. What happens during the procedure? You will lie down on an exam table. An IV will be inserted into one of your veins. A contrast dye will be injected through the IV. This dye will help your provider see the urinary tract better on the X-rays. When the dye enters your body, you may feel warm or have a strange taste in your mouth. The feeling will not last long. A agriculture laboratory technician will take X-rays. To make the X-rays clearer: ?Pressure may be applied to your abdomen. ?You may be asked not to move for long periods of time. ?You may be asked to change positions. You may be asked to empty your bladder before the final X-ray is taken. The procedure may vary among providers and hospitals. What can I expect after procedure? You may return to your normal activities right after the procedure. You may safely drive home right after the procedure. Follow these instructions at home: Drink enough fluid to keep your pee pale yellow. This will help flush out the dye in your body. Take arzl-szb-uresojl and prescription medicines only as told by your provider. Return to your normal activities as told by your provider. Ask your provider what activities are safe for you. It is up to you to get the results of your procedure. Ask your provider, or the department that is doing the procedure, when your results will be ready. Contact a health care provider if: You start peeing (urinating) less than usual. Get help right away if: You vomit or feel like you may vomit. You have itching or itchy, red, swollen areas on the skin (hives). You have trouble breathing. Your throat swells. You have chest pain. You have chills or a fever. These symptoms may be an emergency. Get help right away. Call 911. Do not wait to see if the symptoms will go away. Do not drive yourself to the hospital. This information is not intended to replace advice given to you by your health care provider. Make sure you discuss any questions you have with your health care provider. Document Revised: 08/05/2023 Document Reviewed: 08/05/2023 iFit Patient Education 2023 Reframe It. Follow Up Care 08/23/2024 09:15:25 With:HERMELINDA CHAKRABORTY, Christiano Thornton, URL Address: [address] [place], [place] [id number]- When: Unknown [facility] Clinical Note 09-08-2024 Note Date & Type Note Facility 09-08-2024 Note Patient Education Urology Intravenous Pyelogram An intravenous pyelogram is an X-ray of the urinary tract. The urinary tract is the system through which pee (urine) travels. This tract includes the kidneys, ureters, and bladder. An intravenous pyelogram can help your health care provider find problems, such as: ??? Kidney stones. ??? Bladder stones. ??? An enlarged prostate. ??? Tumors. Tell a health care provider about: ??? Any allergies you have. ??? All medicines you are taking, including vitamins, herbs, eye drops, creams, and uexk-aes-tdjppfw medicines. ??? Any problems you or family members have had with anesthesia. ??? Any bleeding problems you have. ??? Any surgeries you have had. ??? Any medical conditions you have. ??? Whether you are or may be . What are the risks? Your provider will talk with you about risks. These may include: ??? Nausea. ??? An allergic reaction to the dye that is used during the procedure. What happens before the procedure? Follow instructions from your provider about eating or drinking restrictions. ??? Follow instructions from your provider about preparing for the test by taking an oral bowel prep. ??? Ask your provider about changing or stopping your regular medicines. These include any diabetes medicines or blood thinners you take. ??? You may need to remove glasses, jewelry, and any other metal objects. ??? You may be asked to put on a hospital gown. What happens during the procedure? You will lie down on an exam table. ??? An IV will be inserted into one of your veins. ??? A contrast dye will be injected through the IV. This dye will help your provider see the urinary tract better on the X-rays. When the dye enters your body, you may feel warm or have a strange taste in your mouth. The feeling will not last long. ??? A agriculture laboratory technician will take X-rays. To make the X-rays clearer: ? Pressure may be applied to your abdomen. ? You may be asked not to move for long periods of time. ? You may be asked to change positions. ??? You may be asked to empty your bladder before the final X-ray is taken. The procedure may vary among providers and hospitals. What can I expect after procedure? You may return to your normal activities right after the procedure. ??? You may safely drive home right after the procedure. Follow these instructions at home: ??? Drink enough fluid to keep your pee pale yellow. This will help flush out the dye in your body. ??? Take dijf-dwe-mmzxyas and prescription medicines only as told by your provider. ??? Return to your normal activities as told by your provider. Ask your provider what activities are safe for you. ??? It is up to you to get the results of your procedure. Ask your provider, or the department that is doing the procedure, when your results will be ready. Contact a health care provider if: ??? You start peeing (urinating) less than usual. Get help right away if: ??? You vomit or feel like you may vomit. ??? You have itching or itchy, red, swollen areas on the skin (hives). ??? You have trouble breathing. ??? Your throat swells. ??? You have chest pain. ??? You have chills or a fever. These symptoms may be an emergency. Get help right away. Call 911. ??? Do not wait to see if the symptoms will go away. ??? Do not drive yourself to the hospital. This information is not intended to replace advice given to you by your health care provider. Make sure you discuss any questions you have with your health care provider. Document Revised: 08/05/2023 Document Reviewed: 08/05/2023 Elsevier Patient Education ? 2023 Reframe It. [facility] Hospital Discharge instructions 12-13-2022 Note Date [...] one of these risk factors: ?Being of -Portuguese descent. ?Having a family history of prostate [...] you: Are older than age 55. Are -Portuguese. Have a father, brother, or uncle who [...] 08/07/2018 Document Revised: 10/09/2018 Document Reviewed: 08/07/2018 iFit Patient Education 2020 Reframe It. Follow Up Care 11/13/2022 13:46:12 With:HERMELINDA CHAKRABORTY, Christiano Thornton, URL Address: [address] [place], [place] [id number]- When: Unknown [facility] Discharge instructions 09-06-2022 Note Date & [...] one of these risk factors: ?Being of -Portuguese descent. ?Having a family history of prostate [...] you: Are older than age 55. Are -Portuguese. Have a father, brother, or uncle who [...] 08/07/2018 Document Revised: 10/09/2018 Document Reviewed: 08/07/2018 iFit Patient Education 2020 Reframe It. Follow Up Care 08/05/2022 14:49:20 With:HERMELINDA CHAKRABORTY, Christiano Thornton, URL Address: [address] [place] [id number]- When: Unknown [facility] Evaluation + Plan note Note Date & Type Note Facility Evaluation + Plan note No data available for this section [facility] Evaluation + Plan note Note Date & Type Note Facility Evaluation + Plan note Future Appointments Appointment Date:09/08/2024 09:45:00 AM Scheduled Provider:Miky GALINDO MD Location:[facility] Appointment Type:URO Office Visit [facility] Evaluation + Plan note Note Date & Type Note Facility Evaluation + Plan note Future Appointments Appointment Date:03/21/2025 08:15:00 AM Scheduled Provider:Miky GALINDO MD Location:[facility] Appointment Type:URO Office Visit [facility] Evaluation note Note Date & Type Note Facility Evaluation note No assessment information availa [facility] Work Phone: Hospital Discharge instructions Note Date & Type Note Facility Hospital Discharge instructions No data available for this section [facility] Progress note Note Date & Type Note Facility Progress note No data available for this section [facility] and Reason for Visit Chief [...] section and content) DATE CREATED AUTHOR 10/01/2022 [facility] DATE CREATED AUTHOR AUTHOR'S ORGANIZ ATION 12/06/2022 [facility] DATE CREATED AUTHOR AUTHOR'S ORGANGEMINI ATION 10/08/[address] [facility] FOR RECORDS PERTAINING TO PATIENTS WHO ARE [...] BE BASED ON THE PRIMARY CLINICAL RECORDS. [employer] [facility]. provides no warranty or guarantee of the accuracy or completeness of information in this document.
[2024-10-25 10:08] LABS: Basophils Absolute Auto 0.1 10^3/uL (0.0-0.1); Basophils Percent Auto 0.9 % (0.2-2.0); Eosinophils Absolute Auto 0.2 10^3/uL (0.0-0.7); Eosinophils Percent Auto 3.3 % (0.9-7.0); Hematocrit 43.1 % (42.0-54.0); Immature Granulocytes Abs Auto 0.01 10^3/uL (0.00-0.03); Immature Granulocytes Pct Auto 0.2 % (0.0-0.5); Lymphocytes Absolute Auto 1.7 10^3/uL (1.2-3.8); Lymphocytes Percent Auto 29.6 % (20.5-60.0); Mean Corpuscular HGB Conc 32.5 g/dL (29.9-35.2); Mean Corpuscular Hemoglobin 28.1 pg (25.9-34.0); Mean Corpuscular Volume 86.5 fL (80.0-94.0); Mean Platelet Volume 9.8 fL (9.5-13.5); Monocytes Absolute Auto 0.5 10^3/uL (0.3-0.8); Monocytes Percent Auto 8.7 % (1.7-12.0); Neutrophils Absolute Auto 3.3 10^3/uL (1.4-6.5); Neutrophils Percent Auto 57.3 % (43.0-75.0); Platelet Count 330 10^3/uL (150-450); Red Blood Count 4.98 10^6/uL (4.70-6.10); White Blood Count 5.8 10^3/uL (4.0-11.0)
[2024-10-25 10:46] LABS: Alanine Aminotransferase 19 U/L (16-63); Albumin Globulin Ratio 1.1; Albumin Level 3.7 g/dL (3.4-5.0); Alkaline Phosphatase 59 U/L (46-116); Anion Gap 11.9; Aspartate Amino Transferase 15 U/L (15-37); BUN Creatinine Ratio 17.1; Bilirubin Total 0.5 mg/dL (0.2-1.0); Calcium 9.3 mg/dL (8.5-10.1); Carbon Dioxide 30.4 mmol/L (21.0-32.0); Chloride 107 mmol/L (98-107); Chol HDL Ratio 2.9; Cholesterol 166 mg/dL (<=200); Estimated GFR (African America >60 (>=60 mL/min/1.73m^2); Estimated GFR (Non-African Ame >60 (>=60 mL/min/1.73m^2); Free T3 2.67 pg/mL (2.18-3.98); Globulin 3.5 g/dL; Glucose 118 mg/dL (74-106); HDL Cholesterol 58 mg/dL (40-60); Potassium 4.3 mmol/L (3.5-5.1); Sodium 145 mmol/L (136-145); Thyroid Stimulating Hormone 2.527 uIU/mL (0.358-3.740); Total Protein 7.2 g/dL (6.4-8.2); Triglycerides 45 mg/dL (<=150)
[2024-10-25 10:55] LABS: Prostate Specific Antigen Scrn 4.07 ng/mL (<=4.00)
[2024-10-25 11:08] LABS: Estimated Average Glucose 128 mg/dL; Glycohemoglobin A1C 6.1 % (4.5-6.2)
[2024-10-26 08:12] LABS: PSA, Free 0.49 ng/mL; Prostate Specific Ag 3.7 ng/mL (0.0-4.0)
== END 2024-10-25 09:30 | disposition home or self-care (01) ==
PROVIDERS: PCP Family Medicine; Visit Provider Family Medicine
DX: E78.5 Hyperlipidemia, unspecified (principal); I10 Essential (primary) hypertension; K21.9 Gastro-esophageal reflux disease without esophagitis; N40.0 Benign prostatic hyperplasia without lower urinary tract symptoms; E11.9 Type 2 diabetes mellitus without complications; N20.0 Calculus of kidney; Z12.5 Encounter for screening for malignant neoplasm of prostate; R97.20 Elevated prostate specific antigen [PSA]
CPT/HCPCS: 36415; 80053; 80061; 83036; 84153; 84154; 84436; 84443; 84481; 85025; G0103

== ENCOUNTER 2025-05-23 08:12 | Outpatient (OUT) | payer MEDICARE, SELFPAY ==
--- OUTSIDE RECORDS SUMMARY | 2025-02-08 09:29 | XMS_ITS ---
Author Organization The [facility] [place] Address [address] [place] [address] Care Team Providers Care Fireworks Maker Name Role Phone Elias Bradford Primary Care Provider REASON FOR VISIT rf atenolol and metformin Medications Medication SIG (Take, Route, Fr equency, Duration) Notes Start Date End Date Status metFORMIN HCl 500 mg Take 1 tablet orall y twice daily for 90 days Active Atenolol 25 mg Take 1 tablet orally once daily for 90 days Active Encounters Encounter Location Date Provider Diagnosis [facility] [address] [place] [address] 02/08/2025 Elias Bradford Plan Of Treatment Medication Medication Name Sig Start Date Stop Date Notes metFORMIN HCl 500 mg Take 1 tablet orall y twice daily for 90 days Atenolol 25 mg Take 1 tablet orally once daily for 90 days Progress Notes * Joseph FENGshabbirDOB:1955 (69 yo M)Acc No.[id number]:02/08/2025 Patient: Lucian JAY :1955 A ge:69 Y S ex:Male Address:[address] [place] [address], [id number] * Refills Refill Atenolol Tablet, 25 mg, orally, 90 Tablet, Take 1 tablet, once daily, 90 days, Refills=2 Refill metFORMIN HCl Tablet, 500 mg, orally, 180 Tablet, Take 1 tablet, twice daily, 90 days, Refills=2 * true * Date: Generated for Mikhail horn/Amparo/eTbelindasmitting on: 0 05/23/2025 08:19 AM EDT
--- OUTSIDE RECORDS SUMMARY | 2025-02-09 06:39 | XMS_ITS ---
Author Organization The [facility] [place] Address [address] [place] [address] Care Team Providers Care Conservation Policy Analyst Name Role Phone Elias Bradford Primary Care Provider REASON FOR VISIT Refill Medications Medication SIG (Take, Route, Fr equency, Duration) Notes Start Date End Date Status Atenolol 25 MG 1 tablet Orally Once a day for 90 days Active Encounters Encounter Location Date Provider Diagnosis [facility] [address] [place] [address] 02/09/2025 Elias Bradford Plan Of Treatment Medication Medication Name Sig Start Date Stop Date Notes Atenolol 25 MG 1 tablet Orally Once a day for 90 days Progress Notes * Lucian FENGDOB:1955 (69 yo M)Acc No.[id number]:02/09/2025 Patient: Lucian JAY :1955 A ge:69 Y S ex:Male Address:[address] [place] [address], [phone] * Refills Refill Atenolol Tablet, 25 MG, Orally, 90 Tablet, 1 tablet, Once a day, 90 days, Refills=3 * true * Date: Generated for Mikhail horn/Fabianag/eTransmitting on: 0 05/23/2025 08:19 AM EDT
--- OUTSIDE RECORDS SUMMARY | 2025-05-03 06:30 | XMS_ITS ---
Author Organization The [facility] [place] Address [address] [place] [address] Care Team Providers Care Sexer Name Role Phone Elias Bradford Primary Care Provider Allergies No Known Allergies REASON FOR VISIT E11.9 Medications Medication SIG (Take, Route, Frequency, Duration) Notes Start Date End Date Status metFORMIN HCl 500 mg Take 1 tablet orall y twice daily for 90 days Active Triamcinolone Acetonide 0.1 % 1 application Externally Twice a day for 30 10/23/2023 Active Aspirin 81 81 MG 1 tablet Orally Once a day Active Omeprazole 20 mg TAKE 1 CAPSULE DAILY Active Atenolol 25 MG 1 tablet Orally Once a day for 90 days Active Social History Tobacco Use: Social History Observation Description Date Details (start date - stop date) Never Smoker NA - NA Tobacco Use/Smoking Question Answer Notes Patient is a nonsmoker AUDIT-C (Standard) Question Answer Notes Did you have a drink contain ing alcohol in the past year? Yes How often did you have a dri nk containing alcohol in the past year? Never (0 point) How many drinks did you have on a typical day when you were drinking in the past year? 1 or 2 drinks (0 point) How often did you have six o r more drinks on one occasion in the past year? Less than monthly (1 point) Points 1 Interpretation Negative Encounters Encounter Location Date Provider Diagnosis [facility] [address] [place] [address] 05/03/2025 Elias Bradford Controlled type 2 diabetes mellitus E11.9 Assessments Encounter Date Diagnosis (ICD Code) Assessment Notes Treatment Notes Treatment Clinical Notes Section Notes 05/03/2025 Controlled type 2 diabetes mellitus (ICD-10 - E11.9) sugars well controlled discussed diet - rarely cheats - sugars 115 or less checkign on glycohempoglobina dn urine for protein Plan Of Treatment Treatment Notes Assessment Notes Controlled type 2 diabetes mellitus sugars well controlled discussed diet - rarely cheats - sugars 115 or less checkign on glycohempoglobina dn urine for protein Pending Test Test Name Order Date RANDOM URINE PROTEIN 05/03/2025 GLYCOHEMOGLOBIN A1C 05/03/2025 Progress Notes * Lucian FENGDOB:1955 (69 yo M)Acc No.[id number]:05/03/2025 TeleMed via D[employer] Patient: Lucian JAY Provider: Quita Bradford ([facility])MD :1955 A ge:69 Y S ex:Male Date:05/03/2025 Address:[address] [place], [place] [id number] Check In:10:34 AM ESTCheck O ut:11:29 AM EST Subjective: * Chief Complaints: * E 11.9 * HPI: D epression Screening: PHQ-2 (2015 Edition) L ittle interest or pleasure in doing things??Not at all F eeling down, depressed, or hopeless? N ot at all T otal Score 0 dm -sugars up a bit sugar [id number]. G eneral: The patient verbally consented to a TeleHealth encounter and the potential risks involved with a TeleHealth visit (clinical aspects, security considerations, and confidentiality of information) were discussed with the patient. The patient encounter was conducted using a synchronous audio-visual interactive audio telecommunications system called: telephone. Patient is attending the TeleHealth encounter from home. Patient was the only one present in the room. The provider is attending the TeleHealth encounter from their office. Care provided by Telemedicine. Total Time spent during the encounter: 8 min. * Active Problem List I10 Hypertension Modified On:10/23/2023/U Status:confirmed I20.9 Angina pectoris Modified On:10/21/2023/U Status:confirmed K21.9 GERD (gastroesophage al reflux disease) Modified On:10/23/2023/U Status:confirmed K59.00 Constipation Modified On:10/21/2023/U Status:confirmed K44.9 Hernia, hiatal Modified On:10/21/2023U Status:confirmed N40.0 BPH (benign prostati c hypertrophy) Modified On:10/23/2023U Status:confirmed N43.3 Hydrocele in adult Modified On:10/21/2023U Status:confirmed E11.9 Controlled type 2 di abetes mellitus Modified On:10/23/2023U Status:confirmed N20.0 Kidney stone Modified On:08/18/2024/U Status:confirmed * Medical History: * Surgical History: R epair Ventral and Umbilical Hernia 09/28/19Left Knee surgery Right Knee Surgery colonoscopy, Dr Anjel Rondon jun 25 2019EGD-normal 06/25/2019 * Hospitalization/Major Diagno stic Procedure: S epsis idney stone 07/03 * Family History: F ather: , diagnosed with Unspecified heart disease. M other: alive, breast cancer, diagnosed with Other malignant neoplasm of unspecified site, Unspecified heart disease. B giulianaer(s): alive, diagnosed with Diabetes mellitus without mention of complication, type II or unspecified type, not stated as uncontrolled. S ister(s): , diagnosed with Other malignant neoplasm of unspecified site. heart murmur. * Social History: T obacco Use: T obacco Use/Smoking P atient is a n onsmoker D rug/Alcohol: A MADI-C (Standard) D id you have a drink containing alcohol in the past year? Y es H ow often did you have a drink containing alcohol in the past year? N ever (0 point) H ow many drinks did you have on a typical day when you were drinking in the past year? 1 or 2 drinks (0 point) H ow often did you have six or more drinks on one occasion in the past year? L ess than monthly (1 point) P oints 1 I nterpretation N egative * Medications: T akingAspirin 81(Aspirin) 81 MG Tablet Delayed Release 1 tablet Orally Once a day Atenolol 25 MG Tablet 1 tablet Orally Once a day metFORMIN HCl 500 mg Tablet Take 1 tablet orally twice daily Omeprazole 20 mg Capsule Delayed Release TAKE 1 CAPSULE DAILY Triamcinolone Acetonide 0.1 % Cream 1 application Externally Twice a day Taking Aspirin 81(Aspirin) 81 MG Tablet Delayed Release 1 tablet Orally Once a day Taking Atenolol 25 MG Tablet 1 tablet Orally Once a day Taking metFORMIN HCl 500 mg Tablet Take 1 tablet orally twice daily Taking Omeprazole 20 mg Capsule Delayed Release TAKE 1 CAPSULE DAILY Taking Triamcinolone Acetonide 0.1 % Cream 1 application Externally Twice a day DiscontinuedFlomax 0.4 MG Capsule 1 capsule Orally Once a day Hyoscyamine Sulfate 0.125 MG Tablet 1-2 tabs SL SL every 4 hrs PRN abd pain Medication List reviewed and reconciled with the patientDiscontinued Flomax 0.4 MG Capsule 1 capsule Orally Once a day Discontinued Hyoscyamine Sulfate 0.125 MG Tablet 1-2 tabs SL SL every 4 hrs PRN abd pain Medication List reviewed and reconciled with the patient * Allergies: N .K.D.A.no[Allergies Verified] Objective: * Vitals: Assessment: * Assessment: 1. C ontrolled type 2 diabetes mellitus - E11.9 (Primary) Plan: * Treatment: * Procedure Codes: * Preventive Medicine: Screenings/Counseling: F ALL RISK SCREENING Fall Risk Assessment: N o falls in the past year * * Sign off status: Completed Visit Status: C HK (Check Out) true * Provider: Quita Bradford ([facility])MD Date: 0 05/03/2025 Generated for Printi kory/Amparo/eTransmitting on: 0 05/23/2025 08:19 AM EDT History and Physical Notes * HPI (History of Present Illness) Category Sub-Category Detail Notes Category Not es Depression Screening PHQ-2 (2015 Edition) Little interest or pleasure in doing things?: Not at all dm -sugars up a bit sugar [id number] Feeling down, depressed, or hopeless?: N ot at all Total Score: 0
--- OUTSIDE RECORDS SUMMARY | 2025-05-23 08:19 | XMS_ITS | Clinical Summary ---
Author Organization [facility] Address [address] [place] [address] Phone Care Team Providers Care Pipe Maker Name Role Phone Unavailable Primary Care Provider Unavailabl e Social History Tobacco Use Types Packs/Day Years Used Date Smoking Tobacco: Never Assessed Sex and Gender Information Value Date Recorded Sex Assigned at Not on file Legal Sex Male 10:59 PM EST Gender Identity Not on file Sexual Orientation Not on file Plan of Treatment Not on file
--- OUTSIDE RECORDS SUMMARY | 2025-05-23 08:20 | XMS_ITS | Patient Health Record ---
Author Organization [facility] in [place] Address [address] [place] [address] Care Team Providers Care Production Line Name Role Phone Elias Bradford Primary Care Provider Allergies No Known Allergies Results Component Value Reference Range Notes XR IVP w KUB Reviewed date:09/13/2024 07:43:18 PM Interpretation: Performing Lab: Notes/Report: Source Facility: [place] [address] XRay Report Signed Patient: MONIQUE FENG MR#: [id number] : 1955 Acct:[id number] Age/Sex: 69 / M ADM Date: 09/13/24 Loc: [place] Attending Dr: Miky Paez M.D. Ordering Physician: Miky Paez M.D. Date of Service: 09/13/24 Procedure(s): XR IVP w KUB Accession Number(s): [id number] cc: Miky Paez M.D.; Forest Bradford M.D. [place] [address] Patient Name: MONIQUE FENG MRN: [id number] date: 1955 Sex: M Assigned Patient Location: [place] Current Patient Location: [place] Accession/Order Number: [id number] Exam Date: 09/13/2024 12:55 Report Date: 09/13/2024 14:06 At the request of: MIKY PAEZ Procedure: XR IVP w KUB EXAMINATION: XR IVP w KUB HISTORY: ureteral stone COMPARISON: 08/17/2024 TECHNIQUE: After obtaining patient consent a magazine keeper image was obtained followed by injection of 100cc of Omnipaque 300 IV contrast. Immediate nephrographic images were obtained. Corticomedullary and urographic phase images were obtained at 5, 10, 15 and 20 minutes. 15 minute oblique images were also obtained. FINDINGS: KIDNEY/URETER - RIGHT: No visible calcifications. KIDNEY/URETER - LEFT: Suspected 5 mm distal ureterolith on magazine keeper image PELVIS: No visible ureteral calcifications. Any visible calcifications favor phleboliths. NEPHROGRAPHIC PHASE: Asymmetric enlargement of the left kidney CORTICOMEDULLARY: Normal right. Moderate to severe left hydroureteronephrosis UROGRAPHIC PHASE: Moderate to severe left ureteral dilatation extending down to the left distal sacrum BLADDER: Normal size and contour. BOWEL: No abnormal dilation or deviation. BONES: No acute abnormality. Moderate degenerative changes with dextrocurvature OTHER: Negative. No abnormal gaseous collections. XR/XR IVP w KUB IMPRESSION: 5 mm distal left ureterolith with moderate to severe obstructive uropathy Electronically authenticated by: NICO GRESHAM Date: 09/13/2024 14:06 Dictated By: Nico Gresham M.D. Signed By: 09/13/24 1409 DD/ 140 TD/TT: Director Loan: [place] [address] XRay Report Signed Patient: SANDRA FENG MR#: [id number] : 1955 Acct:[id number] Age/Sex: 69 / M ADM Date: 09/13/24 Loc: [place] Attending Dr: Azeem Lazo Ordering Physician: Miky Paez M.D. Date of Service: 09/13/24 Procedure(s): XR IVP w KUB Accession Number(s): [id number] cc: Miky Paez M.D; Forest Bradford M.D. [place] [id number] Patient Name: MONIQEU FENG MRN: [id number] date: 1955 Sex: M Assigned Patient Loc ation: [place] Current Patient Loca tion: [place] Accession/Order Numb er: [id number] Exam Date: 12:55 Report Date: 09/13/2024 14:06 At the request of: MIKY PAEZ Procedure: XR IVP w KUB EXAMINATION: XR IVP w KUB HISTORY: ureteral stone COMPARISON: 08/17/2024 TECHNIQUE: After obt aining patient consent a magazine keeper image was obtained followed by injection of 100c c of Omnipaque 300 IV contrast. Immediate nephrographic images were obtained . Corticomedullary and urographic phase images were obtained at 5, 10, 1 5 and 20 minutes. 15 minute oblique images were also obtained. FINDINGS: KIDNEY/URETER - RIGH T: No visible calcifications. KIDNEY/URETER - LEFT : Suspected 5 mm distal ureterolith on magazine keeper image PELVIS: No visible ureteral calcifications. Any visible calcifications favor phleboliths. NEPHROGRAPHIC PHASE: Asymmetric enlargement of the left kidney CORTICOMEDULLARY: No rmal right. Moderate to severe left hydroureteronephrosis UROGRAPHIC PHASE: Mo derate to severe left ureteral dilatation extending down to the left distal sacrum BLADDER: Normal size and contour. BOWEL: No abnormal dilation or deviation. BONES: No acute abnormality. Moderate degenerative changes with dextrocurvature OTHER: Negative. No abnormal gaseous collections. X R/XR IVP w KUB IMPRESSION: 5 mm distal left ureterolith with moderate to severe obstructive uropathy Electronically authenticated by: NICO GRESHAM Date: 09/13/2024 14:06 Dictated By: Rai Gresham M.D. Signed By: 09/13/24 1409 DD/ 1406 TD/TT: Director Loan: PSA SCREENING Reviewed date:10/25/2024 02:18:19 PM Interpretation: Performing Lab: Notes/Report: [facility] , Prostate Specific Antigen Scrn 4.07 <=4.00 ng/mL Performing Lab: see note ML - [facility] LB CBC AUTO DIFF Reviewed date:10/25/2024 02:18:19 PM Interpretation: Performing Lab: Notes/Report: [facility] , White Blood Count 5.8 4.0-11.0 10 3/uL Red Blood Count 4.98 4.70-6.10 10 6/uL Hemoglobin 14.0 14.0-18.0 g/dL Hematocrit 43.1 42.0-54.0 % Mean Corpuscular Volume 86.5 80.0-94.0 fL Mean Corpuscular Hemoglobin 28.1 25.9-34.0 pg Mean Corpuscular HGB Conc 32.5 29.9-35.2 g/dL Red Cell Distribution Width 14.0 11.0-15.0 % Platelet Count 330 150-450 10 3/uL Mean Platelet Volume 9.8 9.5-13.5 fL Neutrophils Percent Auto 57.3 43.0-75.0 % Lymphocytes Percent Auto 29.6 20.5-60.0 % Monocytes Percent Auto 8.7 1.7-12.0 % Eosinophils Percent Auto 3.3 0.9-7.0 % Basophils Percent Auto 0.9 0.2-2.0 % Immature Granulocytes Pct Auto 0.2 0.0-0.5 % Neutrophils Absolute Auto 3.3 1.4-6. 5 10 3/uL Lymphocytes Absolute Auto 1.7 1.2-3. 8 10 3/uL Monocytes Absolute Auto 0.5 0.3-0.8 10 3/uL Eosinophils Absolute Auto 0.2 0.0-0. 7 10 3/uL Basophils Absolute Auto 0.1 0.0-0.1 10 3/uL Immature Granulocytes Abs Auto 0.01 0.00-0.03 10 3/uL Performing Lab: see note ML - [facility] LB URINE MICROSCOPIC ONLY Reviewed date:08/17/2024 07:52:59 PM Interpretation: Performing Lab: Notes/Report: [facility] , WBC Urine 2-5 NONE SEEN #/HPF RBC Urine 75-100 0-2 #/HPF Bacteria Urine TRACE NONE SEEN #/HPF Mucus Urine TRACE NONE SEEN Squamous Epithelial Cell Urine RARE NONE/RARE #/LPF Crystals Seen? Seen None Seen #/HPF Calcium Oxalate Crystals Urine RARE Cast Seen? SEEN NONE SEEN #/LPF Hyaline Casts Urine RARE Performing Lab: see note ML - [facility] LB UA (CLEAN or CATCH) TYPESETTER APPRENTICE or M ICRO IF IND. Reviewed date:08/17/2024 07:52:59 PM Interpretation: Performing Lab: Notes/Report: [facility] , Color Urine DK YELLOW YELLOW Clarity Urine CLEAR CLEAR Specific [place] Urine >=1.030 1.005-1.025 pH Urine 6.0 5.0-9.0 Protein Urine 30 NEG/TRACE mg/dL Glucose Urine UA NEGATIVE NEGATIVE mg/dL Bilirubin Urine NEGATIVE NEGATIVE Ketones Urine TRACE NEGATIVE mg/dL Blood Urine LARGE NEGATIVE Nitrite Urine NEGATIVE NEGATIVE Urobilinogen Urine 0.2 0.2-1.0 EU/dL Leukocyte Esterase Urine TRACE NEGATIVE Urine Microscopic Indicated YES Performing Lab: see note ML - [facility] LB PROF CHEM 8 (BAS METB) Reviewed date:08/17/2024 07:52:59 PM Interpretation: Performing Lab: Notes/Report: [facility] , Sodium 141 136-145 mmol/L Potassium 3.8 3.5-5.1 mmol/L Chloride 106 98-107 mmol/L Carbon Dioxide 27.3 21.0-32.0 mmol/L Anion Gap 11.5 Glucose 164 74-106 mg/dL Blood Urea Nitrogen 18.0 7.0-18.0 mg/dL Creatinine 1.31 0.70-1.30 mg/dL Estimated GFR ( Daly >60 >=60 mL/min/1.73m 2 Estimated GFR (Non- Noris 54 >=60 mL/min/1.73m 2 BUN Creatinine Ratio 13.7 Calcium 8.9 8.5-10.1 mg/dL Performing Lab: see note ML - [facility] LB CBC AUTO DIFF Reviewed date:08/17/2024 07:52:59 PM Interpretation: Performing Lab: Notes/Report: [facility] , White Blood Count 8.3 4.0-11.0 10 3/uL Red Blood Count 5.04 4.70-6.10 10 6/uL Hemoglobin 14.2 14.0-18.0 g/dL Hematocrit 43.8 42.0-54.0 % Mean Corpuscular Volume 86.9 80.0-94.0 fL Mean Corpuscular Hemoglobin 28.2 25.9-34.0 pg Mean Corpuscular HGB Conc 32.4 29.9-35.2 g/dL Red Cell Distribution Width 14.4 11.0-15.0 % Platelet Count 324 150-450 10 3/uL Mean Platelet Volume 10.0 9.5-13.5 fL Neutrophils Percent Auto 64.5 43.0-75.0 % Lymphocytes Percent Auto 23.8 20.5-60.0 % Monocytes Percent Auto 7.9 1.7-12.0 % Eosinophils Percent Auto 2.9 0.9-7.0 % Basophils Percent Auto 0.5 0.2-2.0 % Immature Granulocytes Pct Auto 0.4 0.0-0.5 % Neutrophils Absolute Auto 5.3 1.4-6. 5 10 3/uL Lymphocytes Absolute Auto 2.0 1.2-3. 8 10 3/uL Monocytes Absolute Auto 0.7 0.3-0.8 10 3/uL Eosinophils Absolute Auto 0.2 0.0-0. 7 10 3/uL Basophils Absolute Auto 0.0 0.0-0.1 10 3/uL Immature Granulocytes Abs Auto 0.03 0.00-0.03 10 3/uL Performing Lab: see note ML - [facility] LB PSA Total+% Free Reviewed date:10/26/2024 12:21:20 PM Interpretation: Performing Lab: Notes/Report: [facility] , Prostate Specific Ag 3.7 0.0-4.0 ng/mL Johanna ECLIA methodology. According to the [employer] [employer], Serum PSA should decrease and [...] the presence or absence of malignant disease. PSA, Free 0.49 N/A ng/mL Johanna ECLIA methodology. % Free PSA 13.2 . % The table below lists the probability of [...] for any other population of men. Performed at: [facility] [address] [place], [place] [id number] Metal Spray Operator: Andres Merchant PhD, Phone: [phone] Performing Lab: see note - [facility] LB TSH Reviewed date:10/25/2024 02:18:19 PM Interpretation: Performing Lab: Notes/Report: [facility] , Thyroid Stimulating Hormone 2.527 0.358-3.740 uIU/mL Performing Lab: see note - [facility] LB T4 Reviewed date:10/25/2024 02:18:19 PM Interpretation: Performing Lab: Notes/Report: [facility] , T4 Thyroxine 7.90 4.50-12.10 ug/dL Performing Lab: see note - [facility] LB PROF 14(COMP METB) Reviewed date:10/25/2024 02:18:19 PM Interpretation: Performing Lab: Notes/Report: [facility] , Sodium 145 136-145 mmol/L Potassium 4.3 3.5-5.1 mmol/L Chloride 107 98-107 mmol/L Carbon Dioxide 30.4 21.0-32.0 mmol/L Anion Gap 11.9 Glucose 118 74-106 mg/dL Blood Urea Nitrogen 19.0 7.0-18.0 mg/dL Creatinine 1.11 0.70-1.30 mg/dL Estimated GFR ( Daly >60 >=60 mL/min/1.73m 2 Estimated GFR (Non- Noris >60 >=60 mL/min/1.73m 2 BUN Creatinine Ratio 17.1 Calcium 9.3 8.5-10.1 mg/dL Bilirubin Total 0.5 0.2-1.0 mg/dL Aspartate Amino Transferase 15 15-37 U/L Alanine Aminotransferase 19 16-63 U/L Alkaline Phosphatase 59 46-116 U/L Total Protein 7.2 6.4-8.2 g/dL Albumin Level 3.7 3.4-5.0 g/dL Globulin 3.5 Albumin Globulin Ratio 1.1 Performing Lab: see note ML - [facility] LB LIPID PROFILE Reviewed date:10/25/2024 02:18:19 PM Interpretation: Performing Lab: Notes/Report: [facility] , Triglycerides 45 <=150 mg/dL Cholesterol 166 <=200 mg/dL HDL Cholesterol 58 40-60 mg/dL > or =60 mg/dl - LOW CARDIOVASCULAR RISK <40 mg/dl - HIGH CARDIOVASCULAR RISK LDL Cholesterol Calculated 99.0 <100 mg/dl OPTIMAL 100-129 mg/dl NEAR OR ABOVE OPTIMAL 130-159 mg/dl BORDERLINE HIGH 160-189 mg/dl HIGH >190 mg/dl VERY HIGH VLDL CHOLESTEROL 9.0 Chol HDL Ratio 2.9 3.3 - 4.4 LOW RISK 4.4 - 7.1 AVERAGE RISK 7.1 - 11.0 MODERATE RISK >11.0 HIGH RISK Performing Lab: see note ML - [facility] FREE T3 Reviewed date:10/25/2024 02:18:19 PM Interpretation: Performing Lab: Notes/Report: [facility] , Free T3 2.67 2.18-3.98 pg/mL Performing Lab: see note - [facility] PROF CHEM 8 (BAS METB) Reviewed date:08/20/2024 01:03:34 PM Interpretation: Performing Lab: Notes/Report: [facility] , Sodium 139 136-145 mmol/L Potassium 4.0 3.5-5.1 mmol/L Chloride 103 98-107 mmol/L Carbon Dioxide 29.1 21.0-32.0 mmol/L Anion Gap 10.9 Glucose 115 74-106 mg/dL Blood Urea Nitrogen 18.0 7.0-18.0 mg/dL Creatinine 1.14 0.70-1.30 mg/dL Estimated GFR ( Daly >60 >=60 mL/min/1.73m 2 Estimated GFR (Non- Noris >60 >=60 mL/min/1.73m 2 BUN Creatinine Ratio 15.8 Calcium 9.4 8.5-10.1 mg/dL Performing Lab: see note ML - [facility] CT abdomen pelvis wo con Reviewed date:08/17/2024 07:52:59 PM Interpretation: Performing Lab: Notes/Report: Source Facility: [facility] [place] [address] [place] [address] CT Scan Report Signed Patient: MONIQUE FENG MR#: [id number] : 1955 Acct:[id number] Age/Sex: 69 / M ADM Date: 08/17/24 Loc: ER Attending Dr: Ordering Physician: Iftikhar Cannon Date of Service: 08/17/24 Procedure(s): CT abdomen pelvis wo con Accession Number(s): [id number] cc: Forest Bradford M.D. [place] [address] Patient Name: MONIQUE FENG MRN: [id number] date: 1955 Sex: M Assigned Patient Location: ER Current Patient Location: ER Accession/Order Number: [id number] Exam Date: 08/17/2024 09:04 Report Date: 08/17/2024 09:39 At the request of: IFTIKHAR CANNON Procedure: CT abdomen pelvis wo con EXAMINATION: CT abdomen pelvis wo con HISTORY: left flank pain COMPARISON: 11/30/[address] TECHNIQUE: Axial, Coronal, and Sagittal images were created without IV contrast. Dose reduction techniques were achieved by using automated exposure control and/or adjustment of mA and/or kV according to patient size and/or use of iterative reconstruction technique. FINDINGS: LUNG BASES: No visible pulmonary or pleural disease. LIVER: No enlargement, atrophy, abnormal density, or significant focal lesion. BILIARY: 4.[address] evidence of acute cholecystitis PANCREAS: No lesion, fluid collection, ductal dilatation, or atrophy. SPLEEN: No enlargement or focal lesion. ADRENALS: No mass or enlargement. KIDNEYS: 4 mm nonobstructing right nephrolith. Asymmetric enlargement of the left kidney with minimal perinephric stranding. Mild left hydroureteronephrosis extending to a 5.4 mm proximal ureterolith axial image #72. Additional punctate left nephrolith BOWEL/MESENTERY: Moderate colonic diverticulosis without evidence of acute diverticulitis. Nonobstructive bowel gas pattern. Normal appendix. AORTA/VASCULAR: No aortic aneurysm. Moderate calcific atherosclerosis RETROPERITONEUM: No mass or adenopathy. LYMPH NODES: No adenopathy. URINARY BLADDER: No visible focal wall thickening, lesion, or calculus. PELVIC ORGANS: No visible mass. Pelvic organs appropriate for patient age. ABDOMINAL WALL: No mass or hernia. BONES: Moderate degenerative changes of the spine OTHER: Large bilateral hydroceles, right greater than left CT/CT abdomen pelvis wo con IMPRESSION: 5.4 mm proximal left ureterolith with mild associated left obstructive uropathy Cholelithiasis Bilateral scrotal hydroceles Electronically authenticated by: NICO GRESHAM Date: 08/17/2024 09:39 Dictated By: Nico Gresham M.D. Signed By: 08/17/24940 DD/ 8 TD/TT: Director Loan: [place] [address] CT Scan Report Signed Patient: SANDRA FENG MR#: [id number] : 1955 Acct:[id number] Age/Sex: 69 / M ADM Date: 08/17/24 Loc: ER Attending Dr: Ordering Physician: Iftikhar Cannon Date of Service: 08/17/24 Procedure(s): CT abd omen pelvis wo con Accession Number(s): [id number] cc: Forest Bradford M.D. [place] [id number] Patient Name: MONIQUE FENG MRN: [id number] date: 1955 Sex: M Assigned Patient Loc ation: ER Current Patient Loca tion: ER Accession/Order Numb er: [id number] Exam Date: 4 09:04 Report Date: 08/17/2024 09:39 At the request of: IFTIKHAR CANNON Procedure: CT abdome n pelvis wo con EXAMINATION: CT abdo men pelvis wo con HISTORY: left flank pain COMPARISON: [address] TECHNIQUE: Axial, Co donovan, and Sagittal images were created without IV contrast. Dose reduc tion techniques were achieved by using automated exposure control and/or adjus tment of mA and/or kV according to patient size and/or use of iterative reconstruction technique. FINDINGS: LUNG BASES: No visib le pulmonary or pleural disease. LIVER: No enlargemen t, atrophy, abnormal density, or significant focal lesion. BILIARY: 4.1 cm gall stone without CT evidence of acute cholecystitis PANCREAS: No lesion, fluid collection, ductal dilatation, or atrophy. SPLEEN: No enlargeme nt or focal lesion. ADRENALS: No mass or enlargement. KIDNEYS: 4 mm nonobstructing right nephrolith. Asymmetric enlargement of the left kidney with min imal perinephric stranding. Mild left hydroureteronephrosis extending to a 5.4 m m proximal ureterolith axial image #72. Additional punctate left nephrolith BOWEL/MESENTERY: Mod erate colonic diverticulosis without evidence of acute diverticulitis. Nonobstructive bowel gas pattern. Normal appendix. AORTA/VASCULAR: No a ortic aneurysm. Moderate calcific atherosclerosis RETROPERITONEUM: No mass or adenopathy. LYMPH NODES: No adenopathy. URINARY BLADDER: No visible focal wall thickening, lesion, or calculus. PELVIC ORGANS: No vi sible mass. Pelvic organs appropriate for patient age. ABDOMINAL WALL: No m ass or hernia. BONES: Moderate degenerative changes of the spine OTHER: Large bilater al hydroceles, right greater than left C T/CT abdomen pelvis wo con IMPRESSION: 5.4 mm proximal left ureterolith with mild associated left obstructive uropathy Cholelithiasis Bilateral scrotal hydroceles Electronically authenticated by: NICO GRESHAM Date: 08/17/2024 09:39 Dictated By: Rai Gresham M.D. Signed By: 08/17/24 0941 DD/ 0939 TD/TT: Director Loan: GLYCOHEMOGLOBIN A1C Reviewed date:10/25/2024 02:18:19 PM Interpretation: Performing Lab: Notes/Report: [facility] , Glycohemoglobin A1C 6.1 4.5-6.2 % ADA RECOMMENDED LIMIT 4.0 - 6.0 ADA THERAPEUTIC TARGET < 7.0 ACTION SUGGESTED > 7.0 Estimated Average Glucose 128 Performing Lab: see note ML - [facility] LB Reason For Referral Diagnosis 1 Screening for colon cancer (Z12.11) Referral Organization [facility] Referring Provider First Name Elias Referring Provider Last Name Suzette Referring Provider Speciality Family Med jessica Referred Provider Dominic Mendez Referred Provider Specialty General Surg mari Referral Priority Routine Medications Medication SIG (Take, Route, Frequency, Duration) Notes Start Date End Date Status Atenolol 25 MG 1 tablet Orally Once a day for 90 days Active metFORMIN HCl 500 mg Take 1 tablet orall y twice daily for 90 days Active Triamcinolone Acetonide 0.1 % 1 application Externally Twice a day for 30 10/23/2023 Active Aspirin 81 81 MG 1 tablet Orally Once a day Active Omeprazole 20 mg TAKE 1 CAPSULE DAILY Active Social History Tobacco Use: Social History Observation Description Date Details (start date - stop date) Never Smoker NA - NA Tobacco Use/Smoking Question Answer Notes Patient is a nonsmoker Alcohol Screen (Audit-C) Question Answer Notes Did you have a drink contain ing alcohol in the past year? Yes How often did you have 6 or more drinks on one occasion in the past year? Never (0 point) How many drinks did you have on a typical day when you were drinking in the past year? 1 or 2 drinks (0 point) How often did you have a dri nk containing alcohol in the past year? Weekly (3 points) Points 3 Interpretation Negative AUDIT-C (Standard) Question Answer Notes Did you [...] monthly (1 point) Points 1 Interpretation Negative Problems Problem Type SNOMED Code ICD Code Onset Dates Problem Status W/U Status Risk Notes Problem Hypertension (94894268) Hypertension (I10) Active confirmed Problem Angina pectoris (543250691) Angina pectoris (I20.9) Active confirmed Problem Gastroesophageal reflux disease (894999721) GERD (gastroesophage al reflux disease) (K21.9) Active confirmed Problem Kidney stone (06993214) Kidney stone (N20.0) Active confirmed Problem Constipation (42586045) Constipation (K59.00) Active confirmed Problem Diaphragmatic hernia (67302790) Hernia, hiatal (K44.9) Active confirmed Problem Benign prostatic hypertrophy without outflow obstruction (005592020) BPH (benign prostatic hypertrophy) (N40.0) Active confirmed Problem Adult hydrocele (disorder) (22450594192677) Hydrocele in adult (N43.3) Active confirmed Problem Type II diabetes mellitus without complication (662279729) Controlled type 2 diabetes mellitus (E11.9) Active confirmed Vital Signs Blood pressure diastolic 90 mm Hg 10/25/2024 Height 69.5 in 10/25/2024 Blood pressure systolic 148 mm Hg 10/25/2024 Weight 198.2 lbs 10/25/2024 BMI 28.85 kg/m2 10/25/2024 Encounters Encounter Location Date Provider Diagnosis [facility] [address] [facility] [address] 08/17/2024 Elias Bradford [facility] [address] [place] [place] [address] 02/09/2025 Elias Bradford [facility] [address] [place] [address] 08/20/2024 Elias Bradford [facility] [address] [place] [address] 10/25/2024 Elias Bradford Screening for colon cancer Z12.11 [facility] [address] [facility] [address] 10/25/2024 Elias Bradford Elevated PSA R97.20 [facility] [address] [place] [address] 10/26/2024 Elias Bradford [facility] [address] [place] [place] [address] 10/28/2024 Elias Bradford [facility] [address] [facility] [address] 02/08/2025 Elias Bradford [facility] [address] [facility] [address] 08/16/2024 Elias Bradford [facility] [address] [place] [address] 10/25/2024 Elias Bradford Hypertension I10 ; G ERD (gastroesophageal reflux disease) K21.9 ; BPH (benign prostatic hypertrophy) N40.0 ; Controlled type 2 diabetes mellitus E11.9 and Kidney stone N20.0 [facility] [address] [place] [address] 05/03/2025 Elias Bradford Controlled type 2 diabetes mellitus E11.9 Assessments Encounter Date Diagnosis (ICD Code) Assessment Notes Treatment Notes Treatment Clinical Notes Section Notes 10/25/2024 Hypertension (ICD-10 - I10) 10/25/2024 GERD (gastroesophagea l reflux disease) (ICD-10 - K21.9) 05/03/2025 Controlled type 2 diabetes mellitus (ICD-10 - E11.9) sugars well controlled discussed diet - rarely cheats - sugars 115 or less checkign on glycohempoglobina dn urine for protein 10/25/2024 Screening for colon cancer (ICD-10 - Z12.11) 10/25/2024 Elevated PSA (ICD-10 - R97.20) 10/25/2024 BPH (benign prostatic hypertrophy) (ICD-10 - N40.0) 10/25/2024 Controlled type 2 diabetes mellitus (ICD-10 - E11.9) 10/25/2024 Kidney stone (ICD-10 - N20.0) Plan Of Treatment Pending Test Test Name Order Date CMP (COMPLETE METABOLIC PANEL) 3 CMP (COMPLETE METABOLIC PANEL) 4 HEMOGLOBIN A1C (GLYCO) 10/23/2023 HEMOGLOBIN A1C (GLYCO) 10/25/2024 LIPID PANEL (CHOL/TRIG/HDL/LDL) 10/25/20 24 LIPID PANEL (CHOL/TRIG/HDL/LDL) 10/23/20 23 CBC WITH DIFF 10/23/2023 CBC WITH DIFF 10/25/2024 PSA, PROSTATE-SPECIFIC ANTIGEN 3 RANDOM URINE PROTEIN 05/03/2025 PSA, TOTAL 10/25/2024 GLYCOHEMOGLOBIN A1C 05/03/2025 THYROID PANEL (T4/TSH/FREE T3) 4 THYROID PANEL (T4/TSH/FREE T3) 3 Insurance Providers Payer Name Payer Address Payer Phone Subscriber Number Group Number Insured Name Patient Relationship to Insured Coverage Start Date Coverage End Date ALEISHA MARTÍNEZ [address] [place] [phone] [id number] Monique Feng Self - patient is the insured Medical (General) History Medical History History ICD Code Hydrocele in adult N43.3 BPH (benign prostatic hypertrophy) N40.0 Angina pectoris I20.9 Constipation K59.00 Abdominal hernia K46.9 Hypertension I10 GERD (gastroesophageal reflux disease) K 21.9 Controlled type 2 diabetes mellitus E11. 9 Hernia, hiatal K44.9 LeFort III fracture colon cancer sigmoid diverticulosis grade 3 internal hemorrhoids Surgical History Surgery Date(Month/Year) Repair Ventral and Umbilical Hernia 09/10 07/29 Left Knee surgery Right Knee Surgery colonoscopy, Dr Anjel Rondon jun 25 2019 EGD-normal 06/25/2019 Hospitalization History Reason Date(Month/Year) Sepsis 12/2022 kidney stone 07/03
[2025-05-23 10:14] LABS: Total Protein Urine Random 22.0 mg/dL (<=11.9)
== END 2025-05-23 08:13 | disposition home or self-care (01) ==
PROVIDERS: PCP Family Medicine; Visit Provider Family Medicine
DX: E11.9 Type 2 diabetes mellitus without complications (principal)
CPT/HCPCS: 36415; 83036; 84156